=== PATIENT | male | born 1965 | race Caucasian/White ===

== ENCOUNTER 2017-03-13 03:41 | Emergency (ER) | payer SELFPAY ==
[~2017-03-13] VITALS: Ht 175.3 cm; Wt 86.5 kg
[2017-03-13 03:47] VITALS: BP 125/63; PULSE 103; RESP 22; TEMP 101; O2SAT 97
[2017-03-13] MEDS ORDERED: SODIUM CHLOR 0.9% 1000 ML INJ 1,000 ML IV SCH (04:01)
[2017-03-13] MEDS ORDERED: ONDANSETRON HCL 4 MG/2 ML VIAL IVP ONE (04:15)
[2017-03-13] MEDS ORDERED: KETOROLAC TROMETHAMINE 30 MG/ML (IVP) VIAL IVP ONE (04:15)
[2017-03-13] MEDS ORDERED: SODIUM CHLORIDE 0.9% FLUSH 10 ML FLUSH IV FLUSH PRN (04:15)
[2017-03-13 04:37] LABS: HEMATOCRIT 33.8 % (39.0-51.0); HEMOGLOBIN 11.5 GM/DL (13.0-17.0); MEAN CELL VOLUME 100.6 FL (80.0-100.0); MEAN CORPUSCULAR HEMOGLOBIN 34.3 PG (27.0-34.0); MEAN CORPUSCULAR HGB CONC 34.1 % (32.0-36.0); MEAN PLATELET VOLUME 10.4 FL (7.0-11.0); PLATELET COUNT 71 TH/MM3 (150-450); RED BLOOD COUNT 3.36 MIL/MM3 (4.50-5.90); RED CELL DISTRIBUTION WIDTH 19.3 % (11.6-17.2)
[2017-03-13 05:00] LABS: ALKALINE PHOSPHATASE 219 U/L (45-117); TOTAL BILIRUBIN ADULT 3.8 MG/DL (0.2-1.0); TOTAL PROTEIN 7.5 GM/DL (6.4-8.2)
[2017-03-13 05:08] LABS: INTERNATIONAL NORMALIZED RATIO 1.7 RATIO; PROTHROMBIN TIME - PATIENT 19.2 SEC (9.8-11.6)
[2017-03-13 05:18] VITALS: BP 116/62; PULSE 101; RESP 24; O2SAT 96
[2017-03-13 05:21] LABS: ALBUMIN 2.4 GM/DL (3.4-5.0); ALT (GPT) 46 U/L (12-78); AST (GOT) 92 U/L (15-37); BICARBONATE 21.8 MEQ/L (21.0-32.0); BLOOD UREA NITROGEN 10 MG/DL (7-18); CALCIUM 7.7 MG/DL (8.5-10.1); CHLORIDE 100 MEQ/L (98-107); CREATININE 0.63 MG/DL (0.60-1.30); GLOMERULAR FILTRATION RATE 135 ML/MIN (>89); GLUCOSE,RANDOM 87 MG/DL (74-106); SODIUM (NA) 132 MEQ/L (136-145)
[2017-03-13 05:36] LABS: BILIRUBIN, URINE NEG (NEG); BLOOD, URINE SMALL (NEG); GLUCOSE,URINE NEG (NEG); KETONE, URINE TRACE mg/dL (NEG); MUCUS URINE FEW /lpf (OCC); NITRITE,URINE NEG (NEG); URINE COLOR YELLOW (YELLW/STRAW); URINE LEUKOCYTE ESTERASE NEG (NEG)
[2017-03-13] MEDS ORDERED: IOHEXOL 350 MG/ML 10 ML VIAL (for RAD DIAG) IVCONTRAST ONE (05:49)
--- NOTE | 2017-03-13 06:03 | RADRPT ---
EXAM DATE/TIME: 03/13/2017 05:41 [facility] COMPARISON: No previous studies available for comparison. INDICATIONS : Abdominal pain. IV CONTRAST: 50 cc Omnipaque 350 (iohexol) IV ORAL CONTRAST: No oral contrast ingested. RADIATION DOSE: 7.29 CTDIvol (mGy) MEDICAL HISTORY : Ulcers. Gastrointestinal bleed. SURGICAL HISTORY : None. ENCOUNTER: Initial ACUITY: 1 day PAIN SCALE: 7/10 LOCATION: abdomen TECHNIQUE: Volumetric scanning of the abdomen and pelvis was performed. Using automated exposure control and ad justment of the mA and/or kV according to patient size, radiation dose was kept as low as reasonably achievable to obtain optimal diagnostic quality images. DICOM format image data is available electro nically for review and comparison. FINDINGS: LOWER LUNGS: The visualized lower lungs are clear. LIVER: Homogeneous density without lesion. The margins of the liver are mildly lobular and there is mild hep atic steatosis. There is no dilation of the biliary tree. There are multiple small gallstones layerin g dependently in the gallbladder. There is apparent mild gallbladder wall thickening and or perichole cystic fluid. A small amount of ascitic fluid surrounding the liver margin. SPLEEN: There is mild splenomegaly with spleen measuring up to 15.3 x 7.5 cm. PANCREAS: Within normal limits. KIDNEYS: Normal in size and shape. There is no mass, stone or hydronephrosis. ADRENAL GLANDS: Within normal limits. VASCULAR: There is no aortic aneurysm. BOWEL/MESENTERY: No oral or IV contrast was given limiting the sensitivity. There is apparent bowel wall thickening in volving portions of the ascending colon. There is a small amount of ascitic fluid in the pelvis. Ther e is no free air. There are multiple loops of nondilated air-containing small bowel. ABDOMINAL WALL: Within normal limits. RETROPERITONEUM: There is no lymphadenopathy. BLADDER: No wall thickening or mass. REPRODUCTIVE: Within normal limits. INGUINAL: There is no lymphadenopathy or hernia. MUSCULOSKELETAL: Within normal limits for patient age. CONCLUSION: 1. Limited exam performed without intravenous or oral contrast. 2. Mild splenomegaly. 3. Liver is normal in size but demonstrates mild hepatic steatosis with mildly lobular bladder contou r which could indicate cirrhosis. There is a small amount of ascitic fluid in the abdomen and pelvis. 4. Multiple small calcified gallstones layering dependently in the gallbladder with questionable wall thickening versus pericholecystic fluid which may be secondary to the ascites. 5. Apparent bowel wall thickening involving portions of the ascending colon. Mihir Ruth MD on March 13, 2017 at 5:57 Board Certified Radiologist. This report was verified electronically.
[2017-03-13 06:14] LABS: BANDS 16 % (0-6); LYMPHOCYTES 1 % (9-44); METAMYELOCYTES 1 % (0-1); MONOCYTES 6 % (0-8); POLYS (SEG NEUTROPHILS) 76 % (16-70)
[2017-03-13 06:15] LABS: KERATOCYTES OCC (NORMAL); OVALOCYTES 1+ (NORMAL)
--- NOTE | 2017-03-13 07:06 | PD ---
HPI Chief Complaint: Abdominal Pain Time Seen by Provider: 03:55 Travel History International Travel<30 days: No Contact w/Intl Traveler<30days: No Traveled to known affect area: No History of Present Illness HPI Patient is a 51-year-old male who comes in complaining of lower abdominal pain and testicular pain. He says it started yesterday afternoon at noon and the pain got so bad he was unable to walk. He has not taken anything for the pain. He says he does not think his testicles are swollen. He denies any trauma. He denies any difficulty urinating. He denies vomiting and has been moving his bowels normally. He says that he did not know he had a fever. He denies any penile discharge. He says he has never had pain like this before. [facility] Past Medical History Gastrointestinal Disorders: Yes (gi bleed with transfusion) Ulcer: Yes Social History Alcohol Use: No Tobacco Use: No Substance Use: No Allergies-Medications (Allergen,Severity, Reaction): Coded Allergies: No Known Allergies (Verified , 03/13/17) Reported Meds & Prescriptions Reported Meds & Active Scripts Active No Active Prescriptions or Reported Medications Review of Systems Except as stated in HPI: all other systems reviewed are Neg General / Constitutional: No: Chills HENT: No: Headaches, Lightheadedness Cardiovascular: No: Chest Pain or Discomfort Respiratory: No: Shortness of Breath Gastrointestinal: Positive: Abdominal Pain Genitourinary: No: Dysuria, Discharge Musculoskeletal: No: Edema, Pain Skin: No Rash, No Change in Pigmentation Neurologic: No: Weakness, Dizziness Physical Exam Narrative GENERAL: Awake and alert, in mild distress due to pain. SKIN: Focused skin assessment warm/dry. No signs of infection. HEAD: Atraumatic. Normocephalic. EYES: Pupils equal and round. No scleral icterus. ENT: No nasal bleeding or discharge. Mucous membranes pink and moist. NECK: Trachea midline. No JVD. CARDIOVASCULAR: Regular rate and rhythm. No murmur appreciated. RESPIRATORY: No accessory muscle use. Clear to auscultation. Breath sounds equal bilaterally. GASTROINTESTINAL: Abdomen is mildly distended and hard to the touch.. Tender to palpation across the lower abdomen. No rebound or guarding. : Exam performed in the presence of the nurse. There is no testicular swelling or masses. No tenderness to palpation of the testicles. No penile lesions. No crepitus. MUSCULOSKELETAL: No obvious deformities. No clubbing. No cyanosis. No edema. NEUROLOGICAL: Awake and alert. No obvious cranial nerve deficits. Motor grossly within normal limits. Normal speech. PSYCHIATRIC: Appropriate mood and affect; insight and judgment normal. Data Data Last Documented VS Vital Signs Date Time Temp Pulse Resp B/P (MAP) Pulse Ox O2 Delivery O2 Flow Rate FiO2 03/13/17 05:18 101 24 116/62 (80) 96 Nasal Cannula 2.00 03/13/17 03:47 101.0 Orders Orders Complete Blood Count With Diff (03/13/17 04:01) Comprehensive Metabolic Panel (03/13/17 04:01) Lactic Acid (03/13/17 04:01) Prothrombin Time / Inr (Pt) (03/13/17 04:01) Act Partial Throm Time (Ptt) (03/13/17 04:01) Urinalysis - C+S If Indicated (03/13/17 04:01) Ct Abd/Pel W Iv Contrast(Rout) (03/13/17 04:01) Iv Access Insert/Monitor (03/13/17 04:01) Ecg Monitoring (03/13/17 04:01) Oximetry (03/13/17 04:01) Ondansetron Inj (Zofran Inj) (03/13/17 04:15) Sodium Chlor 0.9% 1000 Ml Inj (Ns 1000 M (03/13/17 04:01) Sodium Chloride 0.9% Flush (Ns Flush) (03/13/17 04:15) Ketorolac Inj (Toradol Inj) (03/13/17 04:15) Iohexol 350 Inj (Omnipaque 350 Inj) (03/13/17 05:49) Us Testicles W Doppler (03/13/17 ) Us Abdomen Gallbladder (03/13/17 ) Labs Laboratory Tests Test 03/13/17 04:15 03/13/17 05:15 White Blood Count 15.0 TH/MM3 Red Blood Count 3.36 MIL/MM3 Hemoglobin 11.5 GM/DL Hematocrit 33.8 % Mean Corpuscular Volume 100.6 FL Mean Corpuscular Hemoglobin 34.3 PG Mean Corpuscular Hemoglobin Concent 34.1 % Red Cell Distribution Width 19.3 % Platelet Count 71 TH/MM3 Mean Platelet Volume 10.4 FL CBC Comment AUTO DIFF Differential Total Cells Counted 100 Neutrophils % (Manual) 76 % Band Neutrophils % 16 % Lymphocytes % 1 % Monocytes % 6 % Neutrophils # (Manual) 14.0 TH/MM3 Metamyelocytes 1 % Differential Comment FINAL DIFF MANUAL Platelet Estimate LOW Platelet Morphology Comment NORMAL Ovalocytes 1+ Keratocytes OCC Prothrombin Time 19.2 SEC Prothromb Time International Ratio 1.7 RATIO Activated Partial Thromboplast Time 33.5 SEC Blood Urea Nitrogen 10 MG/DL Creatinine 0.63 MG/DL Random Glucose 87 MG/DL Total Protein 7.5 GM/DL Albumin 2.4 GM/DL Calcium Level 7.7 MG/DL Alkaline Phosphatase 219 U/L Aspartate Amino Transf (AST/SGOT) 92 U/L Alanine Aminotransferase (ALT/SGPT) 46 U/L Total Bilirubin 3.8 MG/DL Sodium Level 132 MEQ/L Potassium Level 4.2 MEQ/L Chloride Level 100 MEQ/L Carbon Dioxide Level 21.8 MEQ/L Anion Gap 10 MEQ/L Estimat Glomerular Filtration Rate 135 ML/MIN Urine Color YELLOW Urine Turbidity CLEAR Urine pH 6.0 Urine Specific [place] 1.010 Urine Protein NEG mg/dL Urine Glucose (UA) NEG mg/dL Urine Ketones TRACE mg/dL Urine Occult Blood SMALL Urine Nitrite NEG Urine Bilirubin NEG Urine Urobilinogen 2.0 MG/DL Urine Leukocyte Esterase NEG Urine RBC 1 /hpf Urine WBC 1 /hpf Urine Mucus FEW /lpf Microscopic Urinalysis Comment CULT NOT INDICATED Lactic Acid Level 3.1 mmol/L MDM Medical Decision Making Medical Screen Exam Complete: Yes Emergency Medical Condition: Yes Differential Diagnosis UTI versus appendicitis versus colitis versus epididymitis versus orchitis Narrative Course Patient is a 51-year-old male comes in complaining of lower abdominal pain and testicular pain. Exam shows tenderness across lower abdomen. IV established, labs sent. Labs show a white blood cell count of 15 and a lactic acid of 3.1. Total bilirubin is elevated, but it is similar to previous labs. Platelet count is 71, which is also similar to his previous labs. CT abdomen and pelvis shows gallstones with possible gallbladder wall thickening versus pericholecystic fluid. Patient given IV fluids, Toradol. Ultrasound of the gallbladder and testicles ordered. Patient signed out to Dr. Morley to follow up ultrasounds and disposition the patient. Scripts No Active Prescriptions or Reported Meds Yanelis Maxwell MD Mar 13, 2017 07:06
[2017-03-13 07:11] VITALS: BP 114/67; PULSE 89; RESP 18; TEMP 97.9; TEMP 98.6; O2SAT 98
[2017-03-13] MEDS ORDERED: SODIUM CHLOR 0.9% 1000 ML INJ 1,000 ML IV ONE ×2 (07:15→08:00)
[2017-03-13] MEDS ORDERED: ACETAMINOPHEN 1000 MG/100 ML 100 ML IV ONE (07:45)
--- NOTE | 2017-03-13 07:53 | PD ---
Physical Exam Date Seen by Provider: Mar 13, 2017 Narrative Care was assumed from Dr. Maxwell at 7 AM pending ultrasound of the gallbladder and the testicles. The patient reports the onset of lower abdominal and testicular pain about noon time yesterday. He states that the pain is so severe that he cannot walk or flex his hips. He states that he has vomited a couple of times secondary to the pain. Otherwise, he has had no associated symptoms. GENERAL: Awake and alert. SKIN: Warm and dry. Good color. HEAD: Normocephalic/atraumatic. EYES: Pupils are equal. Extraocular movements are intact. NECK: Neck is supple with full range of motion. CARDIOVASCULAR: Regular rate and rhythm. RESPIRATORY: Nonlabored respirations. ABDOMEN: Soft with diffuse lower abdominal tenderness. No guarding or rebound. I was unable to elicit any right upper quadrant tenderness. MUSCULOSKELETAL: Atraumatic. NEUROLOGICAL: A and O 3. Nonfocal. PSYCHIATRIC: Appropriate mood and affect. Data Data Last Documented VS Vital Signs Date Time Temp Pulse Resp B/P (MAP) Pulse Ox O2 Delivery O2 Flow Rate FiO2 03/13/17 09:46 99.1 80 18 102/67 (79) 97 Room Air 03/13/17 05:18 2.00 Orders Orders Complete Blood Count With Diff (03/13/17 04:01) Comprehensive Metabolic Panel (03/13/17 04:01) Lactic Acid (03/13/17 04:01) Prothrombin Time / Inr (Pt) (03/13/17 04:01) Act Partial Throm Time (Ptt) (03/13/17 04:01) Urinalysis - C+S If Indicated (03/13/17 04:01) Ct Abd/Pel W Iv Contrast(Rout) (03/13/17 04:01) Iv Access Insert/Monitor (03/13/17 04:01) Ecg Monitoring (03/13/17 04:01) Oximetry (03/13/17 04:01) Ondansetron Inj (Zofran Inj) (03/13/17 04:15) Sodium Chlor 0.9% 1000 Ml Inj (Ns 1000 M (03/13/17 04:01) Sodium Chloride 0.9% Flush (Ns Flush) (03/13/17 04:15) Ketorolac Inj (Toradol Inj) (03/13/17 04:15) Iohexol 350 Inj (Omnipaque 350 Inj) (03/13/17 05:49) Us Testicles W Doppler (03/13/17 ) Us Abdomen Gallbladder (03/13/17 ) Sodium Chlor 0.9% 1000 Ml Inj (Ns 1000 M (03/13/17 07:15) Acetaminophen 1000 Mg/100 Ml (Ofirmev 10 (03/13/17 07:45) Sodium Chlor 0.9% 1000 Ml Inj (Ns 1000 M (03/13/17 08:00) Lactic Acid (03/13/17 07:55) Ceftriaxone Inj (Rocephin Inj) (03/13/17 08:00) Blood Culture (03/13/17 08:07) Labs Laboratory Tests Test 03/13/17 04:15 03/13/17 05:15 03/13/17 08:20 White Blood Count 15.0 TH/MM3 Red Blood Count 3.36 MIL/MM3 Hemoglobin 11.5 GM/DL Hematocrit 33.8 % Mean Corpuscular Volume 100.6 FL Mean Corpuscular Hemoglobin 34.3 PG Mean Corpuscular Hemoglobin Concent 34.1 % Red Cell Distribution Width 19.3 % Platelet Count 71 TH/MM3 Mean Platelet Volume 10.4 FL CBC Comment AUTO DIFF Differential Total Cells Counted 100 Neutrophils % (Manual) 76 % Band Neutrophils % 16 % Lymphocytes % 1 % Monocytes % 6 % Neutrophils # (Manual) 14.0 TH/MM3 Metamyelocytes 1 % Differential Comment FINAL DIFF MANUAL Platelet Estimate LOW Platelet Morphology Comment NORMAL Ovalocytes 1+ Keratocytes OCC Prothrombin Time 19.2 SEC Prothromb Time International Ratio 1.7 RATIO Activated Partial Thromboplast Time 33.5 SEC Blood Urea Nitrogen 10 MG/DL Creatinine 0.63 MG/DL Random Glucose 87 MG/DL Total Protein 7.5 GM/DL Albumin 2.4 GM/DL Calcium Level 7.7 MG/DL Alkaline Phosphatase 219 U/L Aspartate Amino Transf (AST/SGOT) 92 U/L Alanine Aminotransferase (ALT/SGPT) 46 U/L Total Bilirubin 3.8 MG/DL Sodium Level 132 MEQ/L Potassium Level 4.2 MEQ/L Chloride Level 100 MEQ/L Carbon Dioxide Level 21.8 MEQ/L Anion Gap 10 MEQ/L Estimat Glomerular Filtration Rate 135 ML/MIN Urine Color YELLOW Urine Turbidity CLEAR Urine pH 6.0 Urine Specific [place] 1.010 Urine Protein NEG mg/dL Urine Glucose (UA) NEG mg/dL Urine Ketones TRACE mg/dL Urine Occult Blood SMALL Urine Nitrite NEG Urine Bilirubin NEG Urine Urobilinogen 2.0 MG/DL Urine Leukocyte Esterase NEG Urine RBC 1 /hpf Urine WBC 1 /hpf Urine Mucus FEW /lpf Microscopic Urinalysis Comment CULT NOT INDICATED Lactic Acid Level 3.1 mmol/L 2.5 mmol/L [facility] Medical Record Reviewed: Yes Supervised Visit with GALILEA: No Narrative Course CBC & BMP Diagram 03/13/17 04:15 Total Protein 7.5, Albumin 2.4 L, Calcium Level 7.7 L, Alkaline Phosphatase 219 H, Aspartate Amino Transf (AST/SGOT) 92 H, Alanine Aminotransferase (ALT/SGPT) 46, Total Bilirubin 3.8 H LA 3.1 UA negative for infection. The patient has been treated with IV fluids. He has not yet received any antibiotics as the etiology of his leukocytosis and lactic acidosis is currently unknown. I have ordered a third liter of IV fluids with a repeat lactic acid level. I have also ordered Rocephin, 2 g IV for treatment of possible epididymitis. Last Impressions Abdomen/Pelvis CT 03/13/17 0401 Signed Impressions: Service Date/Time: Monday, March 13, 2017 05:41 - CONCLUSION: 1. Limited exam performed without intravenous or oral contrast. 2. Mild splenomegaly. 3. Liver is normal in size but demonstrates mild hepatic steatosis with mildly lobular bladder contour which could indicate cirrhosis. There is a small amount of ascitic fluid in the abdomen and pelvis. 4. Multiple small calcified gallstones layering dependently in the gallbladder with questionable wall thickening versus pericholecystic fluid which may be secondary to the ascites. 5. Apparent bowel wall thickening involving portions of the ascending colon. Mihir Ruth MD Scrotum Ultrasound 03/13/17 0000 Signed Impressions: Service Date/Time: Monday, March 13, 2017 09:31 - CONCLUSION: The testicles appear normal. There is thickening of the left epididymis without increased flow. Errol Reddy MD Gall Bladder Ultrasound 03/13/17 0000 Signed Impressions: Service Date/Time: Monday, March 13, 2017 09:21 - CONCLUSION: 1. Heterogeneous liver likely from cirrhosis. There is mild sclerosis in the right upper abdomen. 2. Gallstones, gallbladder distention, and gallbladder wall thickening. This can be correlated with signs of cholecystitis. 3. Mildly distended common bile duct. Errol Reddy MD I am unable to elicit any right upper quadrant tenderness. I believe that his gallstones can be addressed as an outpatient. Lactic acid level has improved with fluids. I will presume that his source faction is genitourinary and treat him with doxycycline. He was treated in the emergency department with Rocephin. Vital Signs Date Time Temp Pulse Resp B/P (MAP) Pulse Ox O2 Delivery O2 Flow Rate FiO2 03/13/17 09:46 99.1 80 18 102/67 (79) 97 Room Air 03/13/17 07:11 18 03/13/17 07:11 98.6 89 18 114/67 (83) 98 Room Air 03/13/17 07:00 17 03/13/17 05:18 101 24 116/62 (80) 96 Nasal Cannula 2.00 03/13/17 03:47 101.0 103 22 125/63 (83) 97 Sepsis Criteria SIRS Criteria (2 or more): Temp > 100.9 or < 96.8, Heart rate over 90, RR > 20 or PaCO2 < 32, WBC > 96702, < 4000 or > 10% bands Sepsis Criteria (SIRS+source): Infect source susp/known Severe Sepsis (+one): Lactate >2 Criteria Outcome: Meets SIRS criteria, Meets sepsis criteria, Meets severe sepsis criteria Diagnosis Primary Impression: SIRS (systemic inflammatory response syndrome) Additional Impressions: Lactic acidosis Epididymitis Patient Instructions: Epididymitis (DC), General Instructions Med/Other Pt SpecificInfo: Prescription(s) given Scripts Nabumetone (Nabumetone) 750 Mg Tab 750 MG PO BID for Pain-Inflammation, #60 TAB 0 Refills Prov: Anya Morley MD 03/13/17 Doxycycline Hyclate (Doxycycline Hyclate) 100 Mg Cap 100 MG PO BID for Infection, #20 CAP 0 Refills Prov: Anya Morley MD 03/13/17 Disposition: 01 DISCHARGE HOME Condition: Stable Anya Morley MD Mar 13, 2017 07:53
[2017-03-13] MEDS ORDERED: cefTRIAXone INJ 2,000 MG in SODIUM CHLORIDE 0.9% INJ 100 ML IV ONE (08:00)
[2017-03-13 09:46] VITALS: BP 102/67; PULSE 80; RESP 18; TEMP 99.1; O2SAT 97
--- NOTE | 2017-03-13 10:01 | RADRPT ---
EXAM DATE/TIME: 03/13/2017 09:21 [facility] COMPARISON: CT ABDOMEN & PELVIS W CONTRAST, March 13, 2017, 5:41. INDICATIONS : Right upper quadrant pain. MEDICAL HISTORY : GI bleed with transfusion. Ulcer. Right upper quadrant pain. SURGICAL HISTORY : Left leg/ankle surgery. ENCOUNTER: Initial ACUITY: 1 day PAIN SCORE: 8/10 LOCATION: Right upper quadrant MEASUREMENTS: LIVER: 17.7 cm length COMMON DUCT: 7 mm RIGHT KIDNEY: 11.3 x 6.1 x 7.1 cm FINDINGS: LIVER: The liver echotexture is coarsened diffusely without focal lesion or ductal dilatation. The liver chad face is minimally nodular. There is mild ascites seen at the periphery of the liver. COMMON DUCT: Common bile duct is mildly dilated at 7 mm. GALLBLADDER: The gallbladder is distended with gallstones. The gallbladder wall is thickened at 9 mm. There does a ppear to be pericholecystic fluid. PANCREAS: The visualized portions are within normal limits. RIGHT KIDNEY: No evidence of hydronephrosis, stone, or mass. CONCLUSION: 1. Heterogeneous liver likely from cirrhosis. There is mild sclerosis in the right upper abdomen. 2. Gallstones, gallbladder distention, and gallbladder wall thickening. This can be correlated with s igns of cholecystitis. 3. Mildly distended common bile duct. Errol Reddy MD on March 13, 2017 at 9:54 Board Certified Radiologist. This report was verified electronically.
--- NOTE | 2017-03-13 10:19 | RADRPT ---
EXAM DATE/TIME: 03/13/2017 09:31 [facility] COMPARISON: No previous studies available for comparison. INDICATIONS : Testicular pain. MEDICAL HISTORY : GI bleed with transfusion. Ulcer. Testicular pain. SURGICAL HISTORY : Left leg/ankle surgery. ENCOUNTER: Initial ACUITY: 1 day PAIN SCORE: 9/10 LOCATION: Bilateral testicles. MEASUREMENTS: RIGHT TESTICLE: 4.2 x 2.9 x 2.2cm LEFT TESTICLE: 4.7 x 3.2 x 2.0cm FINDINGS: RIGHT TESTICLE: Homogeneous echotexture without intra or extratesticular mass. Blood flow is symmetric and within no rmal limits. There is a minimal hydrocele. No varicocele is seen. Epididymis is within normal limit s. LEFT TESTICLE: Homogeneous echotexture without intra or extratesticular mass. Blood flow is symmetric and within no rmal limits. No hydrocele or varicocele. There is heterogeneity seen adjacent to the left testicle likely related to an enlarged epididymis. Increased flow is not seen. SCROTUM: Within normal limits. CONCLUSION: The testicles appear normal. There is thickening of the left epididymis without increased flow. Errol Reddy MD on March 13, 2017 at 10:12 Board Certified Radiologist. This report was verified electronically.
[2017-03-13] MEDS ORDERED: DOXY100C PO (10:35)
[2017-03-13] MEDS ORDERED: NABU1TAB33 PO (10:35)
[2017-03-13 10:50] VITALS: BP 120/81; TEMP 98.4
== END 2017-03-13 10:52 | disposition home or self-care (01) ==
LOC: NEPE 03:41
DX: R65.10 Systemic inflammatory response syndrome (SIRS) of non-infectious origin without acute organ dysfunction (principal); E87.2 Acidosis; N45.1 Epididymitis; K80.80 Other cholelithiasis without obstruction; B95.62 Methicillin resistant Staphylococcus aureus infection as the cause of diseases classified elsewhere; Z87.19 Personal history of other diseases of the digestive system
CPT/HCPCS: 74177; 76705; 76870; 80053; 81001; 83605; 85007; 85027; 85610; 85730; 86403; 87040; 87186; 87205; 93975; 96361; 96365; 96368; 96375; 99285; J0131; J0696; J1885; J2405; J7030; Q9967

== ENCOUNTER 2017-03-16 20:49 | Inpatient (IN) | payer SELFPAY ==
[~2017-03-16] VITALS: Ht 175.3 cm; Wt 115.9 kg
[~2017-03-16 20:49] MED LIST: DOXY100C PO; NABU1TAB33 PO
[2017-03-16 20:52] VITALS: BP 128/60; PULSE 106; RESP 16; O2SAT 95
[2017-03-16] MEDS ORDERED: SODIUM CHLOR 0.9% 1000 ML INJ 1,000 ML IV ONE ×5 (21:45→23:30)
[2017-03-16] MEDS ORDERED: PIPERACIL-TAZO 4.5 GM PREMIX 100 ML IV ONE (22:15)
[2017-03-16] MEDS ORDERED: VANCOMYCIN INJ 1,000 MG in SODIUM CHLOR 0.9% 250 ML INJ 250 ML IV ONE (22:15)
[2017-03-16] MEDS ORDERED: ONDANSETRON HCL 4 MG/2 ML VIAL IV PUSH ONE (22:15)
[2017-03-16] MEDS ORDERED: MORPHINE SULFATE 4 MG/ML INJ IV PUSH ONE (22:15)
[2017-03-16 22:26] VITALS: RESP 20; O2SAT 99
[2017-03-16 22:28] VITALS: BP 127/60; PULSE 102; RESP 24; TEMP 97.4; O2SAT 98
[2017-03-16 22:29] LABS: HEMATOCRIT 31.7 % (39.0-51.0); MEAN CELL VOLUME 101.1 FL (80.0-100.0); MEAN CORPUSCULAR HGB CONC 33.6 % (32.0-36.0); PLATELET COUNT 27 TH/MM3 (150-450); RED BLOOD COUNT 3.13 MIL/MM3 (4.50-5.90); RED CELL DISTRIBUTION WIDTH 20.1 % (11.6-17.2); WHITE BLOOD COUNT 14.9 TH/MM3 (4.0-11.0)
--- NOTE | 2017-03-16 22:33 | RADRPT ---
EXAM DATE/TIME: 03/16/2017 22:12 [facility] COMPARISON: No previous studies available for comparison. INDICATIONS : Fever, shortness of breath, syncope. MEDICAL HISTORY : None. SURGICAL HISTORY : None. ENCOUNTER: Initial ACUITY: 1 day PAIN SCORE: 0/10 LOCATION: Bilateral chest FINDINGS: The lungs are clear without infiltrate, nodule, or mass. There is no appreciable pleural effusion fo r technique. Heart and mediastinum are unremarkable. CONCLUSION: No acute cardiopulmonary disease. Daysi Elkins MD on March 16, 2017 at 22:31 Board Certified Radiologist. This report was verified electronically.
[2017-03-16 22:38] LABS: HEMO FLAGS AUTO DIFF
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
[2017-03-16 22:42] LABS: APTT (PATIENT) 43.5 SEC (24.3-30.1); INTERNATIONAL NORMALIZED RATIO 2.4 RATIO; PROTHROMBIN TIME - PATIENT 27.8 SEC (9.8-11.6)
[2017-03-16 23:02] LABS: ALKALINE PHOSPHATASE 220 U/L (45-117); ALT (GPT) 45 U/L (12-78); ANION GAP 18 MEQ/L (5-15); AST (GOT) 184 U/L (15-37); BICARBONATE 16.1 MEQ/L (21.0-32.0); BLOOD UREA NITROGEN 64 MG/DL (7-18); CHLORIDE 94 MEQ/L (98-107); CREATINE KINASE 437 U/L (39-308); GLOMERULAR FILTRATION RATE 17 ML/MIN (>89); SODIUM (NA) 128 MEQ/L (136-145); TOTAL BILIRUBIN ADULT 9.4 MG/DL (0.2-1.0)
[2017-03-16 23:03] LABS: POTASSIUM 4.5 MEQ/L (3.5-5.1)
--- NOTE | 2017-03-16 23:14 | RADRPT ---
EXAM DATE/TIME: 03/16/2017 22:50 [facility] COMPARISON: No previous studies available for comparison. INDICATIONS : Syncope. RADIATION DOSE: 56.35 CTDIvol (mGy) MEDICAL HISTORY : Ulcers. Gastrointestinal bleed. SURGICAL HISTORY : None. ENCOUNTER: Initial ACUITY: 1 day PAIN SCALE: 0/10 LOCATION: cranial TECHNIQUE: Multiple contiguous axial images were obtained of the head. Using automated exposure control and adj ustment of the mA and/or kV according to patient size, radiation dose was kept as low as reasonably a chievable to obtain optimal diagnostic quality images. DICOM format image data is available electro nically for review and comparison. FINDINGS: CEREBRUM: Minimal high density in the right parietal convexity. There also appears to be some minimal subarachn oid hemorrhage posteriorly. The ventricles are normal for age. No evidence of midline shift, mass le lary or acute infarction. No extra-axial fluid collections are seen. POSTERIOR FOSSA: The cerebellum and brainstem are intact. The 4th ventricle is midline. The cerebellopontine angle i s unremarkable. EXTRACRANIAL: The visualized portion of the orbits is intact. SKULL: The calvaria is intact. No evidence of skull fracture. CONCLUSION: 1. Minimal contusion high right parietal convexity. 2. Minimal subarachnoid hemorrhage. Eran Agustin MD on March 16, 2017 at 23:11 Board Certified Radiologist. This report was verified electronically.
[2017-03-16 23:17] LABS: BANDS 34 % (0-6); METAMYELOCYTES 6 % (0-1); MYELOCYTES 3 % (0-0); NEUTROPHIL # MANUAL DIFF 14.3 TH/MM3 (1.8-7.7); POLYS (SEG NEUTROPHILS) 52 % (16-70); PROMYELOCYTES 1 % (0-0); SCAN/DIFF FINAL DIFF MANUAL; WBC DIFF SAMPLE 100
--- NOTE | 2017-03-16 23:17 | RADRPT ---
EXAM DATE/TIME: 03/16/2017 22:54 [facility] COMPARISON: No previous studies available for comparison. INDICATIONS : Chest pain. Evaluate for pneumonia. RADIATION DOSE: 6.39 CTDIvol (mGy) ; Combined studies - Thorax/Abdomen/Pelvis MEDICAL HISTORY : Ulcers. Gastrointestinal bleed. SURGICAL HISTORY : None. ENCOUNTER: Initial ACUITY: 1 day PAIN SCALE: 6/10 LOCATION: Bilateral chest TECHNIQUE: Volumetric scanning of the chest was performed. Using automated exposure control and adjustment of t he mA and/or kV according to patient size, radiation dose was kept as low as reasonably achievable to obtain optimal diagnostic quality images. DICOM format image data is available electronically for r eview and comparison. Follow-up recommendations for detected pulmonary nodules are based at a minimum on nodule size and pa tient risk factors according to Fleischner Society Guidelines. FINDINGS: LUNGS: There is no consolidation or pneumothorax. No concerning pulmonary nodule is visualized. Minimal sca rring in the lower lobes. PLEURAE: There is no pleural thickening or pleural effusion. MEDIASTINUM: The heart and great vessels demonstrate no acute abnormality. There is no mediastinal or hilar lymph adenopathy. Coronary artery calcifications. AXILLAE: Within normal limits. No lymphadenopathy. MUSCULOSKELETAL: Within normal limits for patient age. MISCELLANEOUS: The visualized upper abdominal organs demonstrate cholelithiasis and minimal ascites. CONCLUSION: 1. Minimal scarring in the lower lobes. 2. No consolidation or mass. Eran Agustin MD on March 16, 2017 at 23:13 Board Certified Radiologist. This report was verified electronically.
[2017-03-16 23:19] LABS: PLATELET ESTIMATE SMEAR LOW (NORMAL); PLATELET MORPHOLOGY NORMAL (NORMAL); TOXIC GRANULATION 2+ (NORMAL); TOXIC VACUOLATION PRESENT (NONE SEEN)
[2017-03-16 23:20] LABS: ACANTHOCYTES OCC (NORMAL); OVALOCYTES 1+ (NORMAL)
--- NOTE | 2017-03-16 23:21 | RADRPT ---
EXAM DATE/TIME: 03/16/2017 22:54 [facility] COMPARISON: CT ABDOMEN & PELVIS W CONTRAST, March 13, 2017, 5:41. INDICATIONS : Abdomen pain. ORAL CONTRAST: No oral contrast ingested. RADIATION DOSE: 6.39 CTDIvol (mGy) ; Combined studies - Thorax/Abdomen/Pelvis MEDICAL HISTORY : Ulcers. Gastrointestinal bleed. SURGICAL HISTORY : None. ENCOUNTER: Initial ACUITY: 1 day PAIN SCALE: 6/10 LOCATION: abdomen TECHNIQUE: Volumetric scanning of the abdomen and pelvis was performed. Using automated exposure control and ad justment of the mA and/or kV according to patient size, radiation dose was kept as low as reasonably achievable to obtain optimal diagnostic quality images. DICOM format image data is available electro nically for review and comparison. FINDINGS: LOWER LUNGS: The visualized lower lungs are clear. LIVER: Slightly nodular without lesion. There is no dilation of the biliary tree. There are calcified galls tones. Minimal ascites. SPLEEN: Enlarged without lesion. PANCREAS: Within normal limits. KIDNEYS: Normal in size and shape. There is no mass, stone, or hydronephrosis. ADRENAL GLANDS: Within normal limits. VASCULAR: There is no aortic aneurysm. BOWEL/MESENTERY: The stomach, small bowel, and colon demonstrate no acute abnormality. There is no free intraperitone al air or fluid. ABDOMINAL WALL: Within normal limits. RETROPERITONEUM: There is no lymphadenopathy. BLADDER: No wall thickening or mass. REPRODUCTIVE: Within normal limits. INGUINAL: There is no lymphadenopathy or hernia on the left. Small right fat containing hernia. MUSCULOSKELETAL: Within normal limits for patient age. CONCLUSION: 1. Cholelithiasis. 2. Liver is slightly nodular but could be early morphologic changes of cirrhosis. Minimal ascites. 3. Small fat-containing right inguinal hernia. 4. Splenomegaly. Eran Agustin MD on March 16, 2017 at 23:16 Board Certified Radiologist. This report was verified electronically.
[2017-03-16 23:26] VITALS: BP 108/56; PULSE 108; RESP 24; O2SAT 97
[2017-03-16 23:29] LABS: BLOOD GAS BASE EXCESS -8.6 mmol/L (-2-2); BLOOD GAS CARBOXYHEMOGLOBIN 1.4 % (0-4); BLOOD GAS HCO3 17 mmol/L (22-26); BLOOD GAS METHEMOGLOBIN 0.3 % (0-2); BLOOD GAS O2 HGB SATURATION 87 % (90-100); BLOOD GAS OXYGEN CONTENT 12.3 Vol % (12.0-20.0); BLOOD GAS PCO2 36 mmHg (38-42); BLOOD GAS PO2 62 mmHG (61-120); CRITICAL VALUE YES; FIO2 21 %; OXYGEN DEVICE ROOM AIR; TEMP CORR TO 98.6
[2017-03-16] MEDS ORDERED: SODIUM CHLOR 0.9% 1000 ML INJ 1,000 ML IV SCH (23:30)
[2017-03-16] MEDS ORDERED: SODIUM CHLOR 0.9% 1000 ML INJ 100 ML IV ONE (23:30)
[2017-03-16] MEDS ORDERED: SODIUM CHLORIDE 0.9% FLUSH 10 ML FLUSH IV FLUSH PRN (23:30)
[2017-03-16] MEDS ORDERED: CHLORHEXIDINE GLUCONATE 2 % 1 PACK (2 CLOTHS) TOP PRN (23:30)
[2017-03-16] MEDS ORDERED: MISCELLANEOUS NURSING INFORMATION XX SCH (23:30)
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
[2017-03-16 23:31] LABS: DRAW SITE RT PEDAL; NUMBER OF ARTERIAL PUNCTURES 1; STAT YES
[2017-03-16 23:38] LABS: CKMB 18.6 NG/ML (0.5-3.6)
[2017-03-16 23:41] LABS: FIBRINOGEN 213 mg/dL (227-377)
--- NOTE | 2017-03-16 23:54 | PD ---
Physical Exam Date Seen by Provider: Mar 16, 2017 Time Seen by Provider: 23:43 Narrative 51-year-old male came to the emergency room for not feeling well. He was seen initially by the PA and I'm supervising him. Patient had a syncopal episode today and was passed out for almost an hour as per him. Patient is a chronic alcoholic. He was seen in the emergency department on 03/13/2017. At that time he was seen for abdominal pain. CT scan and blood test results were abnormal including elevated lactic acid. However was discharged home on doxycycline. Patient never filled the prescription for doxycycline. He was tachycardic when he arrived in 120s. He seemed to be in significant distress. His abdomen was distended. Blood test results came back and shows severe sepsis with DIC picture. CT scan of the abdomen shows cirrhosis with mild ascites and cholecystitis. Patient was given IV fluid and antibiotic as per sepsis protocol. CT scan of the head was reported as small subarachnoid hemorrhage. I am really concerned given the coagulopathy that the intracranial bleed will worsen. I contacted Dr. Chadwick from ICU who came down to see the patient. Patient was GCS of 14. He did not want patient to be intubated. I discussed the case with Dr. Quinteros who is on-call for general surgery and he has been asked to consult for the acute cholecystitis. I just spoke with Dr. Kelly as well who wants the patient to be started on FFP and platelets as soon as possible as well. PCC is not an option with possible DIC at this point. Patient will be going to the unit soon. I had put a central line due to poor peripheral venous access. Please refer to my procedure note. Patient tolerated the procedure well. A chest x-ray is getting done at this point for the line placement. Data Data Last Documented VS Vital Signs Date Time Temp Pulse Resp B/P (MAP) Pulse Ox O2 Delivery O2 Flow Rate FiO2 03/16/17 23:35 100 Nasal Cannula 10.00 03/16/17 23:26 108 24 108/56 (73) 03/16/17 22:28 97.4 Orders Orders Electrocardiogram (03/16/17 21:45) Complete Blood Count With Diff (03/16/17 21:45) Comprehensive Metabolic Panel (03/16/17 21:45) Prothrombin Time / Inr (Pt) (03/16/17 21:45) Act Partial Throm Time (Ptt) (03/16/17 21:45) Lactic Acid Sepsis Protocol (03/16/17 21:45) Magnesium (Mg) (03/16/17 21:45) Lipase (03/16/17 21:45) Ckmb (Isoenzyme) Profile (03/16/17 21:45) Troponin I (03/16/17 21:45) Urinalysis - C+S If Indicated (03/16/17 21:45) Influenzae A/B Antigen (03/16/17 21:45) Blood Culture (03/16/17 21:45) Chest, Single Ap (03/16/17 21:45) Blood Glucose (03/16/17 21:45) Ecg Monitoring (03/16/17 21:45) Iv Access Insert/Monitor (03/16/17 21:45) Oximetry (03/16/17 21:45) Oxygen Administration (03/16/17 21:45) Sodium Chlor 0.9% 1000 Ml Inj (Ns 1000 M (03/16/17 21:45) Alcohol (Ethanol) (03/16/17 22:02) Ct Brain W/O Iv Contrast(Rout) (03/16/17 ) Piperacil-Tazo 4.5 Gm Premix (Zosyn 4.5 (03/16/17 22:15) Vancomycin Inj (Vancomycin Inj) (03/16/17 22:15) Morphine Inj (Morphine Inj) (03/16/17 22:15) Ondansetron Inj (Zofran Inj) (03/16/17 22:15) Sodium Chlor 0.9% 1000 Ml Inj (Ns 1000 M (03/16/17 22:15) Sodium Chlor 0.9% 1000 Ml Inj (Ns 1000 M (03/16/17 22:15) Ct Abd/Pel W/O Iv Contrast (03/16/17 ) Ct Thorax/ Chest Wo Iv Contras (03/16/17 ) CKMB (03/16/17 22:10) CKMB% (03/16/17 22:10) Fibrinogen (03/16/17 23:07) D-Dimer (03/16/17 23:07) Type And Screen (03/16/17 23:24) Arterial Blood Gas (Abg) (03/16/17 23:10) Ammonia (03/16/17 23:37) Chest, Single Ap (03/16/17 ) Admit Order (Ed Use Only) (03/16/17 23:40) Labs Laboratory Tests Test 03/16/17 22:10 03/16/17 23:10 03/16/17 23:39 White Blood Count 14.9 TH/MM3 Red Blood Count 3.13 MIL/MM3 Hemoglobin 10.6 GM/DL Hematocrit 31.7 % Mean Corpuscular Volume 101.1 FL Mean Corpuscular Hemoglobin 34.0 PG Mean Corpuscular Hemoglobin Concent 33.6 % Red Cell Distribution Width 20.1 % Platelet Count 27 TH/MM3 Mean Platelet Volume 10.6 FL CBC Comment AUTO DIFF Differential Total Cells Counted 100 Neutrophils % (Manual) 52 % Band Neutrophils % 34 % Monocytes % 4 % Neutrophils # (Manual) 14.3 TH/MM3 Metamyelocytes 6 % Myelocytes 3 % Promyelocytes 1 % Differential Comment FINAL DIFF MANUAL Toxic Granulation 2+ Toxic Vacuolation PRESENT Platelet Estimate LOW Platelet Morphology Comment NORMAL Ovalocytes 1+ Acanthocytes OCC Prothrombin Time 27.8 SEC Prothromb Time International Ratio 2.4 RATIO Activated Partial Thromboplast Time 43.5 SEC Fibrinogen 213 mg/dL D-Dimer Quantitative (PE/DVT) GREATER THAN 35.20 MG/L FEU Blood Urea Nitrogen 64 MG/DL Creatinine 3.84 MG/DL Random Glucose 63 MG/DL Total Protein 5.7 GM/DL Albumin 1.8 GM/DL Calcium Level 7.7 MG/DL Magnesium Level 2.0 MG/DL Alkaline Phosphatase 220 U/L Aspartate Amino Transf (AST/SGOT) 184 U/L Alanine Aminotransferase (ALT/SGPT) 45 U/L Total Bilirubin 9.4 MG/DL Sodium Level 128 MEQ/L Potassium Level 4.5 MEQ/L Chloride Level 94 MEQ/L Carbon Dioxide Level 16.1 MEQ/L Anion Gap 18 MEQ/L Estimat Glomerular Filtration Rate 17 ML/MIN Lactic Acid Level 8.3 mmol/L Total Creatine Kinase 437 U/L Creatine Kinase MB 18.6 NG/ML Creatine Kinase MB % 4.3 % Troponin I 3.91 NG/ML Lipase 132 U/L Ethyl Alcohol Level LESS THAN 3 MG/DL Blood Gas Puncture Site RT PEDAL Blood Gas Patient Temperature 98.6 Blood Gas HCO3 17 mmol/L Blood Gas Base Excess -8.6 mmol/L Blood Gas Oxygen Saturation 87 % Arterial Blood pH 7.29 Arterial Blood Partial Pressure CO2 36 mmHg Arterial Blood Partial Pressure O2 62 mmHG Arterial Blood Oxygen Content 12.3 Vol % Arterial Blood Carboxyhemoglobin 1.4 % Arterial Blood Methemoglobin 0.3 % Blood Gas Hemoglobin 10.0 G/DL Oxygen Delivery Device ROOM AIR Blood Gas Inspired Oxygen 21 % Ammonia 22 MCMOL/L MDM Supervised Visit with GALILEA: Yes Critical Care Narrative Aggregate critical care time was 80 minutes. Time to perform other separately billable procedures was not included in the critical care time. My time did not include minutes spent treating any other patients simultaneously or on activities that did not directly contribute to the patient's treatment. The services I provided to this patient were to treat and/or prevent clinically significant deterioration that could result in: Severe sepsis, DIC, intracranial bleed, acute cholecystitis I provided critical care services requiring my management, as noted below: Chart data review, documentation time, medication orders and management, vital sign assessments/reviewing monitor data, ordering and reviewing lab tests, ordering and interpreting/reviewing x-rays and diagnostic studies, care of the patient and discussion of the patient with the admitting physicians. Procedures Procedure Narrative Emergency department US guided Internal Jugular was performed with patient consent. Linear probe was used in the transverse and sagittal views of the Internal Jugular to assist with vascular access. Physician Communication Physician Communication Dr. Chadwick, Dr. Kelly, Dr. Quinteros Diagnosis Primary Impression: Severe sepsis Additional Impressions: Intracranial bleed Acute cholecystitis DIC (disseminated intravascular coagulation) Cirrhosis Qualified Codes: K70.31 - Alcoholic cirrhosis of liver with ascites Elevated troponin I level Acute renal failure Qualified Codes: N17.8 - Other acute kidney failure Hepatorenal syndrome Admitting Information Admitting Physician Requests: it Amrik Campbell MD Mar 16, 2017 23:54
--- NOTE | 2017-03-16 23:56 | RADRPT ---
EXAM DATE/TIME: 03/16/2017 23:43 [facility] COMPARISON: No previous studies available for comparison. INDICATIONS : Post central line placement. MEDICAL HISTORY : Ulcers. Gastrointestinal bleed SURGICAL HISTORY : None. ENCOUNTER: Subsequent ACUITY: 1 day PAIN SCORE: 8/10 LOCATION: Bilateral chest FINDINGS: A single view of the chest demonstrates cardiomegaly. Left jugular central line with tip in the SVC. No pneumothorax. Osseous structures are intact. CONCLUSION: 1. Adequate placement of a left jugular central line. Eran Agustin MD on March 16, 2017 at 23:54 Board Certified Radiologist. This report was verified electronically.
[2017-03-17] VITALS (28 sets, daily range): BP systolic 82–114; BP diastolic 42–62; PULSE 108–126; RESP 23–35; TEMP 97.1–98.6; O2SAT 90–98
[2017-03-17] MEDS ORDERED: RESP: ALBUTEROL 2.5 MG/IPRATROPIUM 0.5 MG NEB (PRN) NEB (00:15)
[2017-03-17 00:20] LABS: LACTIC ACID GHOST NOT REPORTABLE
[2017-03-17] MEDS: ALBUMIN 25% INJ 100 ML IV SCH ×4 (00:34→18:35)
[2017-03-17] MEDS: SODIUM BICARBONATE 8.4% INJ 150 MEQ in DEXTROSE 5% IN WATE 1000ML INJ 1,000 ML IV SCH ×4 (01:39→13:41)
[2017-03-17 02:01] LABS: LACTIC ACID GHOST NOT REPORTABLE
[2017-03-17] MEDS: PANTOPRAZOLE SODIUM 40 MG VIAL IV PUSH SCH ×3 (02:19→20:13)
[2017-03-17] MEDS: levETIRAcetam INJ 500 MG in SODIUM CHLORIDE 0.9% INJ 100 ML IV SCH ×2 (02:19→14:20)
[2017-03-17] MEDS: CHLORHEXIDINE GLUCONATE 2 % 1 PACK (2 CLOTHS) TOP SCH (04:00)
[2017-03-17] MEDS ORDERED: SUCCINYLCHOLINE CHLORIDE 200 MG/10 ML VIAL ONE (04:16)
[2017-03-17] MEDS ORDERED: ETOMIDATE 40 MG/20 ML VIAL ONE (04:16)
[2017-03-17] MEDS ORDERED: NOREPINEPHRINE-DEXTROSE DRIP 250 ML IV ONE (04:37)
[2017-03-17 04:43] LABS: HEMATOCRIT 23.8 % (39.0-51.0); MEAN CELL VOLUME 101.8 FL (80.0-100.0); MEAN CORPUSCULAR HEMOGLOBIN 34.3 PG (27.0-34.0); MEAN CORPUSCULAR HGB CONC 33.7 % (32.0-36.0); PLATELET COUNT 37 TH/MM3 (150-450); RED BLOOD COUNT 2.33 MIL/MM3 (4.50-5.90); RED CELL DISTRIBUTION WIDTH 19.9 % (11.6-17.2); WHITE BLOOD COUNT 18.3 TH/MM3 (4.0-11.0)
[2017-03-17] MEDS ORDERED: TERBUTALINE INJ 1 MG/ML AMP SQ PRN (04:45)
--- NOTE | 2017-03-17 04:46 | PD.PROCEDR ---
Procedure Note Procedure Endotracheal Intubation A time-out was completed verifying correct patient, procedure, site, positioning , and special equipment if applicable. The patient was placed in a flat position. Sedation was obtained using Etomidate 20mg. The patient was easily ventilated using an ambu bag. The [employer]/ MAC 4 BLADE was used and inserted into the oropharynx at which time there was a Grade 1 view of the vocal cords. A 8-azeri endotracheal tube was inserted and visualized going through the vocal cords. The stylette was removed. Colorimetric change was visualized on the CO2 meter. Breath sounds were heard in both lung basilio equally. The endotracheal tube was placed at 23 cm, measured at the teeth. A chest x-ray was ordered to assess for pneumothorax and verify endotrachealtube placement. Estimated Blood Loss: 0 The patient tolerated the procedure well and there were no complications. Duc Chadwick MD Mar 17, 2017 04:46
[2017-03-17 04:55] LABS: INTERNATIONAL NORMALIZED RATIO 1.6 RATIO; PROTHROMBIN TIME - PATIENT 17.5 SEC (9.8-11.6)
[2017-03-17] MEDS ORDERED: MIDAZOLAM HCL 5 MG/ML VIAL (1 ML) ONE (04:55)
[2017-03-17] MEDS ORDERED: MIDAZOLAM HCL 5 MG/ML VIAL (1 ML) IV STA (05:05)
[2017-03-17] MEDS ORDERED: ETOMIDATE 20 MG/10 ML VIAL IV PUSH STA (05:05)
[2017-03-17] MEDS ORDERED: SUCCINYLCHOLINE CHLORIDE 100 MG/5 ML SYRINGE IV PUSH STA (05:06)
[2017-03-17 05:07] LABS: HEMO FLAGS AUTO DIFF
[2017-03-17] MEDS: fentaNYL DRIP 250 ML IV PRN (05:16)
[2017-03-17] MEDS: NOREPINEPHRINE INJ 4 MG in SODIUM CHLOR 0.9% 250 ML INJ 246 ML IV PRN ×6 (05:17→21:52)
[2017-03-17] MEDS: MIDAZOLAM 100 MG/100 ML INJ 100 ML IV PRN (05:17)
[2017-03-17 05:18] LABS: BICARBONATE 17.9 MEQ/L (21.0-32.0); CALCIUM-PROTEIN CORRECTED 7.8 MG/DL (8.5-10.1); POTASSIUM 3.5 MEQ/L (3.5-5.1); TOTAL BILIRUBIN ADULT 8.4 MG/DL (0.2-1.0)
[2017-03-17 05:33] LABS: BACTERIA, URINE OCC /hpf; BLOOD, URINE MOD (NEG); COMMENT (UR) CATH-CULTURE IND; CULTURE IF INDICATED CATH CULTURE IND; GLUCOSE,URINE TRACE mg/dL (NEG); HYALINE CAST, URINE 38 /lpf (RARE); KETONE, URINE TRACE mg/dL (NEG); MUCUS URINE FEW /lpf (OCC); NITRITE,URINE NEG (NEG); SQUAMOUS EPITHELIAL CELL URINE 1 /hpf (0-5); URINE COLOR DARK-BROWN (YELLW/STRAW)
[2017-03-17] MEDS: VASOPRESSIN INJ 40 UNITS in DEXTROSE 5% IN WATER 100ML INJ 98 ML IV SCH ×2 (06:31)
[2017-03-17 07:50] LABS: BANDS 21 % (0-6); DOHLE BODIES PRESENT (NONE SEEN); METAMYELOCYTES 3 % (0-1); NEUTROPHIL # MANUAL DIFF 17.2 TH/MM3 (1.8-7.7); POLYS (SEG NEUTROPHILS) 69 % (16-70); PROMYELOCYTES 1 % (0-0); TOXIC GRANULATION 2+ (NORMAL); TOXIC VACUOLATION PRESENT (NONE SEEN); WBC DIFF SAMPLE 100
[2017-03-17 07:51] LABS: OVALOCYTES 1+ (NORMAL); PLATELET ESTIMATE SMEAR LOW (NORMAL); PLATELET MORPHOLOGY NORMAL (NORMAL); SCAN/DIFF FINAL DIFF MANUAL
[2017-03-17] MEDS: RESP: ALBUTEROL 2.5 MG/IPRATROPIUM 0.5 MG NEB (SCH) INH ×4 (08:36→21:01)
[2017-03-17 08:40] LABS: BLOOD GAS BASE EXCESS -8.3 mmol/L (-2-2); BLOOD GAS CARBOXYHEMOGLOBIN 1.1 % (0-4); BLOOD GAS HCO3 19 mmol/L (22-26); BLOOD GAS METHEMOGLOBIN 0.9 % (0-2); BLOOD GAS O2 HGB SATURATION 98 % (90-100); BLOOD GAS PCO2 51 mmHg (38-42); BLOOD GAS PO2 309 mmHg (61-120); BLOOD GAS TOTAL HGB 8.2 G/DL (12.0-16.0); CRITICAL VALUE YES; OXYGEN DEVICE VENTILATOR; TEMP CORR TO 98.6
[2017-03-17 08:41] LABS: DRAW SITE RT RADIAL; FIO2 100 %; NUMBER OF ARTERIAL PUNCTURES 1; STAT NO; ULNAR PULSE PRESENT; VENT SETTINGS PRVC/AC
[2017-03-17] MEDS ORDERED: SODIUM CHLOR 0.9% 250 ML INJ 250 ML IV ONE (09:00)
[2017-03-17] MEDS: SODIUM CHLORIDE 0.9% FLUSH 10 ML FLUSH IV FLUSH SCH ×2 (09:21→19:38)
--- NOTE | 2017-03-17 09:34 | RADRPT ---
EXAM DATE/TIME: 03/17/2017 09:37 [facility] COMPARISON: CHEST SINGLE AP, March 16, 2017, 23:43. INDICATIONS : Endotracheal tube placement. MEDICAL HISTORY : None. SURGICAL HISTORY : None. ENCOUNTER: Initial ACUITY: 2 days PAIN SCORE: Non-responsive. LOCATION: chest FINDINGS: ET tube tip is 2 cm above the santa. Left internal jugular catheter tip at cavoatrial junction. Th e lungs are symmetrically aerated; there is a new partially consolidative infiltrate in the right inf rahilar region and some patchy infiltrates in the left retrocardiac region. Both hemidiaphragms are well delineated. The heart is normal size. CONCLUSION: 1. ET tube tip 2 cm above the santa. 2. Interval development of bilateral patchy infiltrates in the right infrahilar and left retrocardiac regions. Epifanio Bravo MD on March 17, 2017 at 9:32 Board Certified Radiologist. This report was verified electronically.
--- NOTE | 2017-03-17 10:43 | PD.CONS ---
HPI History of Present Illness This is a 51 year old male who presented to the emergency room for evaluation after a syncopal episode and generalized pain. He was noted to have leukocytosis , coagulopathy, anemia, acute renal failure with multiple electrolyte abnormalities, and elevated troponin I. CT scan abdomen and pelvis without IV contrast (03/16/17)----> cholelithiasis, liver is slightly nodular but could be morphologic changes of cirrhosis, minimal ascites, small fat containing right inguinal hernia, splenomegaly. CT head appreciated minimal contusion high right parietal convexity, minimal subarachnoid hemorrhage. He was admitted to the intensive care unit for severe sepsis/lactic acidosis, acute cholecystitis, coagulopathy, traumatic subarachnoid hemorrhage, and transaminitis. Overnight, he developed respiratory distress and required emergent intubation and was placed on mechanical ventilator. An OGT was placed and they immediately suctioned red blood from his stomach. The nurse reports that he also had blood coming from his oral cavity and that they have suctioned out 1 L of blood from OGT. GI was consulted for further evaluation. He is known to our service and has been evaluated with EGD/Colonoscopy (04/29/15)---> gastric ulcers, duodenitis , esophagitis, colon polyps. It was recommended that he have a repeat EGD/ Colonoscopy in 6-8 weeks. He then had an EGD in February of [address] [facility], which showed a gastric antral ulcer (pathology reactive gastropathy, negative for helicobacter-like bacteria), hiatal hernia (small), gastritis, portal gastropathy. He then had another EGD for anemia, hematemesis (04/30/16)-- --> esophagitis, gastric ulcers, gastritis. Outpatient colonoscopy was recommended. This was not done at our office. He is currently sedated on the vent and unable to provide any history. The nurse reports that his mother stated that he continues to drink heavily, although the exact amount is unknown. [facility] Past Medical History Gastric ulcer Gastritis Hiatal hernia Portal gastropathy Suspected cirrhosis Esophagitis Pancytopenia Alcohol hepatitis Alcohol abuse Past Surgical History Foot surgery EGD Colonoscopy Coded Allergies: No Known Allergies (Verified , 03/16/17) Medications Allergies Coded Allergies Type Severity Reaction Last Updated Verified No Known Allergies 03/16/17 Yes Active Scripts Medications Dose Route/Sig Max Daily Dose Days Date Category Family History Unable to obtain Social History Drinks heavily per mother, exact quantify unknown Per EMR, no tobacco, illicit drug use. Review of Systems ROS Unable to obtain GI Exam Vitals I&O Vital Signs Date Time Temp Pulse Resp B/P (MAP) Pulse Ox O2 Delivery O2 Flow Rate FiO2 03/17/17 10:22 110 86/54 03/17/17 10:00 112 03/17/17 09:35 97.7 114 23 105/61 97 03/17/17 08:03 114 83/54 03/17/17 08:00 50 03/17/17 08:00 116 03/17/17 07:15 116 03/17/17 07:00 97 Mechanical Ventilator 50 03/17/17 07:00 117 03/17/17 06:31 116 90/54 03/17/17 06:30 97 50 03/17/17 06:30 50 03/17/17 06:00 116 03/17/17 05:17 114 86/51 03/17/17 04:45 92 50 03/17/17 04:42 Mechanical Ventilator 100 03/17/17 04:42 100 03/17/17 04:00 126 03/17/17 03:37 97.5 122 28 105/59 90 03/17/17 03:22 97.1 122 25 114/62 94 03/17/17 03:19 97.1 122 25 114/62 90 03/17/17 03:05 98.6 121 25 94 03/17/17 03:04 97.6 121 25 102/58 94 03/17/17 02:47 97.4 120 24 91/59 94 03/17/17 02:00 121 03/17/17 01:45 97.6 118 24 101/61 96 03/17/17 01:15 97.7 117 35 96/54 93 03/17/17 00:00 116 03/17/17 00:00 97.6 112 26 113/59 (77) 93 03/17/17 00:00 93 Nasal Cannula 4.00 03/17/17 00:00 95 Nasal Cannula 4.00 03/16/17 23:57 03/16/17 23:35 100 Nasal Cannula 10.00 03/16/17 23:26 108 24 108/56 (73) 97 Room Air 03/16/17 22:28 97.4 102 24 127/60 (82) 98 Room Air 03/16/17 22:26 16 98 Room Air 03/16/17 22:26 98 Room Air 03/16/17 22:26 20 99 Room Air 03/16/17 20:52 106 16 128/60 (82) 95 I/O 03/16/17 03/16/17 03/16/17 03/17/17 03/17/17 03/17/17 07:00 15:00 23:00 07:00 15:00 23:00 Intake Total 36742 ml 188 ml Output Total 1075 ml Balance 9979 ml 188 ml Intake IV Total 8438 ml 188 ml FFP 1075 ml Platelets 1050 ml Cryoprecipitate 241 ml Blood Product IV Normal Saline Flush 250 ml Output Urine Total 75 ml Stool Total 0 ml Gastric Drainage Total 1000 ml Imaging Last Impressions Chest X-Ray 03/17/17 0000 Signed Impressions: Service Date/Time: Friday, March 17, 2017 09:37 - CONCLUSION: 1. ET tube tip 2 cm above the santa. 2. Interval development of bilateral patchy infiltrates in the right infrahilar and left retrocardiac regions. Epifanio Bravo MD Head CT 03/16/17 0000 Signed Impressions: Service Date/Time: Thursday, March 16, 2017 22:50 - CONCLUSION: 1. Minimal contusion high right parietal convexity. 2. Minimal subarachnoid hemorrhage. Eran Agustin MD Chest CT 03/16/17 0000 Signed Impressions: Service Date/Time: Thursday, March 16, 2017 22:54 - CONCLUSION: 1. Minimal scarring in the lower lobes. 2. No consolidation or mass. Eran Agustin MD Abdomen/Pelvis CT 03/16/17 0000 Signed Impressions: Service Date/Time: Thursday, March 16, 2017 22:54 - CONCLUSION: 1. Cholelithiasis. 2. Liver is slightly nodular but could be early morphologic changes of cirrhosis. Minimal ascites. 3. Small fat-containing right inguinal hernia. 4. Splenomegaly. Eran Agustin MD Laboratory Test 03/16/17 22:10 03/16/17 23:10 03/16/17 23:39 03/16/17 23:55 White Blood Count 14.9 TH/MM3 Red Blood Count 3.13 MIL/MM3 Hemoglobin 10.6 GM/DL Hematocrit 31.7 % Mean Corpuscular Volume 101.1 FL Mean Corpuscular Hemoglobin 34.0 PG Mean Corpuscular Hemoglobin Concent 33.6 % Red Cell Distribution Width 20.1 % Platelet Count 27 TH/MM3 Mean Platelet Volume 10.6 FL CBC Comment AUTO DIFF Differential Total Cells Counted 100 Neutrophils % (Manual) 52 % Band Neutrophils % 34 % Monocytes % 4 % Neutrophils # (Manual) 14.3 TH/MM3 Metamyelocytes 6 % Myelocytes 3 % Promyelocytes 1 % Differential Comment FINAL DIFF MANUAL Toxic Granulation 2+ Toxic Vacuolation PRESENT Platelet Estimate LOW Platelet Morphology Comment NORMAL Ovalocytes 1+ Acanthocytes OCC Prothrombin Time 27.8 SEC Prothromb Time International Ratio 2.4 RATIO Activated Partial Thromboplast Time 43.5 SEC Fibrinogen 213 mg/dL D-Dimer Quantitative (PE/DVT) GREATER THAN 35.20 MG/L FEU Blood Urea Nitrogen 64 MG/DL Creatinine 3.84 MG/DL Random Glucose 63 MG/DL Total Protein 5.7 GM/DL Albumin 1.8 GM/DL Calcium Level 7.7 MG/DL Magnesium Level 2.0 MG/DL Alkaline Phosphatase 220 U/L Aspartate Amino Transf (AST/SGOT) 184 U/L Alanine Aminotransferase (ALT/SGPT) 45 U/L Total Bilirubin 9.4 MG/DL Sodium Level 128 MEQ/L Potassium Level 4.5 MEQ/L Chloride Level 94 MEQ/L Carbon Dioxide Level 16.1 MEQ/L Anion Gap 18 MEQ/L Estimat Glomerular Filtration Rate 17 ML/MIN Lactic Acid Level 8.3 mmol/L 7.5 mmol/L Total Creatine Kinase 437 U/L Creatine Kinase MB 18.6 NG/ML Creatine Kinase MB % 4.3 % Troponin I 3.91 NG/ML Lipase 132 U/L Ethyl Alcohol Level LESS THAN 3 MG/DL Blood Gas Puncture Site RT PEDAL Blood Gas Patient Temperature 98.6 Blood Gas HCO3 17 mmol/L Blood Gas Base Excess -8.6 mmol/L Blood Gas Oxygen Saturation 87 % Arterial Blood pH 7.29 Arterial Blood Partial Pressure CO2 36 mmHg Arterial Blood Partial Pressure O2 62 mmHG Arterial Blood Oxygen Content 12.3 Vol % Arterial Blood Carboxyhemoglobin 1.4 % Arterial Blood Methemoglobin 0.3 % Blood Gas Hemoglobin 10.0 G/DL Oxygen Delivery Device ROOM AIR Blood Gas Inspired Oxygen 21 % Ammonia 22 MCMOL/L C-Reactive Protein 8.10 MG/DL Test 03/17/17 00:10 03/17/17 04:10 03/17/17 04:14 03/17/17 05:12 Nasal Screen MRSA (PCR) MRSA DETECTED Lactic Acid Level 8.0 mmol/L White Blood Count 18.3 TH/MM3 Red Blood Count 2.33 MIL/MM3 Hemoglobin 8.0 GM/DL Hematocrit 23.8 % Mean Corpuscular Volume 101.8 FL Mean Corpuscular Hemoglobin 34.3 PG Mean Corpuscular Hemoglobin Concent 33.7 % Red Cell Distribution Width 19.9 % Platelet Count 37 TH/MM3 Mean Platelet Volume 7.6 FL CBC Comment AUTO DIFF Differential Total Cells Counted 100 Neutrophils % (Manual) 69 % Band Neutrophils % 21 % Lymphocytes % 2 % Monocytes % 4 % Neutrophils # (Manual) 17.2 TH/MM3 Metamyelocytes 3 % Promyelocytes 1 % Differential Comment FINAL DIFF MANUAL Toxic Granulation 2+ Toxic Vacuolation PRESENT Dohle Bodies PRESENT Platelet Estimate LOW Platelet Morphology Comment NORMAL Ovalocytes 1+ Acanthocytes Prothrombin Time 17.5 SEC Prothromb Time International Ratio 1.6 RATIO Blood Urea Nitrogen 62 MG/DL Creatinine 3.72 MG/DL Random Glucose 57 MG/DL Total Protein 6.0 GM/DL Albumin 2.5 GM/DL Calcium Level 7.2 MG/DL Alkaline Phosphatase 157 U/L Aspartate Amino Transf (AST/SGOT) 141 U/L Alanine Aminotransferase (ALT/SGPT) 36 U/L Total Bilirubin 8.4 MG/DL Sodium Level 132 MEQ/L Potassium Level 3.5 MEQ/L Chloride Level 96 MEQ/L Carbon Dioxide Level 17.9 MEQ/L Anion Gap 18 MEQ/L Estimat Glomerular Filtration Rate 17 ML/MIN Protein Corrected Calcium 7.8 MG/DL Total Creatine Kinase 421 U/L Creatine Kinase MB 23.0 NG/ML Creatine Kinase MB % 5.5 % Urine Color DARK-BROWN Urine Turbidity CLOUDY Urine pH 5.0 Urine Specific [place] 1.024 Urine Protein 30 mg/dL Urine Glucose (UA) TRACE mg/dL Urine Ketones TRACE mg/dL Urine Occult Blood MOD Urine Nitrite NEG Urine Bilirubin NEG Urine Urobilinogen 4.0 MG/DL Urine Leukocyte Esterase TRACE Urine RBC 25 /hpf Urine WBC 15 /hpf Urine Squamous Epithelial Cells 1 /hpf Urine Amorphous Sediment RARE Urine Bacteria OCC /hpf Urine Hyaline Casts 38 /lpf Urine Mucus FEW /lpf Microscopic Urinalysis Comment CATH-CULTURE IND Urine Opiates Screen POS Urine Barbiturates Screen NEG Urine Amphetamines Screen NEG Urine Benzodiazepines Screen NEG Urine Cocaine Screen NEG Urine Cannabinoids Screen NEG Test 03/17/17 06:05 03/17/17 08:32 Blood Gas Puncture Site RT RADIAL Blood Gas Patient Temperature 98.6 Blood Gas HCO3 19 mmol/L Blood Gas Base Excess -8.3 mmol/L Blood Gas Oxygen Saturation 98 % Arterial Blood pH 7.19 Arterial Blood Partial Pressure CO2 51 mmHg Arterial Blood Partial Pressure O2 309 mmHg Arterial Blood Oxygen Content 12.0 Vol % Arterial Blood Carboxyhemoglobin 1.1 % Arterial Blood Methemoglobin 0.9 % Blood Gas Hemoglobin 8.2 G/DL Oxygen Delivery Device VENTILATOR Blood Gas Ventilator Setting PRVC/AC Blood Gas Inspired Oxygen 100 % Lactic Acid Level 8.3 mmol/L Date/Time Source Procedure Growth Status 03/16/17 22:15 Blood Peripheral Aerobic Blood Culture - Preliminary Gram Positive Cocci Resulted 03/16/17 22:15 Anaerobic Blood Culture - Preliminary Gram Positive Cocci Resulted 03/16/17 22:15 Nasal Washing Influenza Types A,B Antigen (KIM) - Final NEGATIVE FOR FLU A AND B ANTIGEN.... Complete 03/17/17 05:12 Urine Catheterized Urine Urine Culture Pending Received Physical Examination HEENT: Normocephalic; atraumatic; no jaundice. CHEST: Resp. even, OETT to mechanical ventilator. Diminished bases. CARDIAC: Tachycardic, regular. On vasopressors ABDOMEN: Soft, distended, bowel sounds are present in all four quadrants. OGT to LIWS with dark red blood in tubing EXTREMITIES: Generalized edema. 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 Assessment and Plan Plan ASSESSMENT: - Upper GIB. Pt with known hx of liver cirrhosis, portal gastropathy, and recurrent/persistent gastric ulcer. Pt developed respiratory distress, required emergent intubation. OGT was placed and they immediately got red blood in return. The nurse reports 1L was suctioned. He is known to our service and has been evaluated with EGD/Colonoscopy (04/29/15)---> gastric ulcers, duodenitis, esophagitis, colon polyps. It was recommended that he have a repeat EGD/Colonoscopy in 6-8 weeks. He then had an EGD in February of [address] [facility], which showed a gastric antral ulcer (pathology reactive gastropathy, negative for helicobacter-like bacteria), hiatal hernia (small) , gastritis, portal gastropathy. He then had another EGD for anemia, hematemesis (04/30/16)----> esophagitis, gastric ulcers, gastritis. Outpatient colonoscopy was recommended. He has not followed up in our office and has continued to drink ETOH (large amount per mother). NPO, OGT to LIWS. Add Protonix Gtt, Octreotide. EGD with possible band ligation as needed. - Anemia, acute blood loss. 8.0/23.8. On #1/2 PRBC. - Ascites, mild. - Thrombocytopenia, Coagulopathy. S/P 4 units FFP, 3 units Plt, 1 unit cryoprecipitate. - Alcoholic hepatitis on underlying liver cirrhosis, elevated LFTs. CT scan abdomen and pelvis without IV contrast (03/16/17)----> cholelithiasis, liver is slightly nodular but could be morphologic changes of cirrhosis, minimal ascites, small fat containing right inguinal hernia, splenomegaly. T. Bili 9.4, AST 184, ALT 45, ALk PHosph 220. Disc. Fxn 82.080. He is on solucortef. Consider adding Pentoxifylline if steroids d/c'd. - Respiratory failure. Required emergent intubation, now sedated on vent per [facility]. CXR with bilateral patchy infiltrates in the right infrahilar and left retrocardiac regions. - Sepsis, Leukocytosis, Bacteremia, Lactic acidosis. BCx GPC (03/16/17), FLU A/ B ag negative. Urine cx pending. Zosyn, - ARF with multiple electrolyte abnormalities. Creat 3.84. Renal consulted. - NSTEMI. Troponin 3.91. Per [facility] - [facility]. CT head appreciated minimal contusion high right parietal convexity, minimal subarachnoid hemorrhage. - Cholelithiasis. LFTs do not appear obstructive. He does have sepsis, bacteremia with GPC. Zosyn - ETOH abuse. DT precautions per attending. - Hx persistent gastric ulcer. PLAN: - Plan for egd with band ligation. - Obtain consents - NPO - OGT to LIWS - Octreotide Bolus and then Gtt - Protonix Gtt - Monitor HH q6h - Transfuse as necessary - CBC, CMP in am - [facility] following - Renal consulted - Supportive care - Further recommendations to follow based on results of above - Pt seen and examined by Dr. Small and myself and this note is written on his behalf Harini Pierson Mar 17, 2017 10:43
[2017-03-17] MEDS ORDERED: SODIUM CHLORIDE 0.9% FLUSH 10 ML FLUSH IV FLUSH PRN (11:00)
[2017-03-17] MEDS ORDERED: SODIUM CHLORIDE 0.9% FLUSH 10 ML FLUSH IV FLUSH SCH (11:00)
[2017-03-17] MEDS ORDERED: OCTREOTIDE INJ 50 MCG/ML AMP IV PUSH ONE (11:30)
[2017-03-17] MEDS: OCTREOTIDE INJ 500 MCG in SODIUM CHLORID 0.9% 500 ML INJ 499.5 ML IV SCH ×2 (12:09→21:53)
[2017-03-17] MEDS: PANTOPRAZOLE INJ 80 MG in SODIUM CHLORIDE 0.9% INJ 100 ML IV SCH ×2 (12:09→21:30)
[2017-03-17 12:35] LABS: BLOOD GAS BASE EXCESS -7.5 mmol/L (-2-2); BLOOD GAS CARBOXYHEMOGLOBIN 1.5 % (0-4); BLOOD GAS HCO3 18 mmol/L (22-26); BLOOD GAS METHEMOGLOBIN 0.7 % (0-2); BLOOD GAS O2 HGB SATURATION 95 % (90-100); BLOOD GAS OXYGEN CONTENT 10.8 Vol % (12.0-20.0); BLOOD GAS PCO2 41 mmHg (38-42); BLOOD GAS PO2 102 mmHg (61-120); BLOOD GAS TOTAL HGB 7.9 G/DL (12.0-16.0); CRITICAL VALUE YES; OXYGEN DEVICE VENTILATOR; TEMP CORR TO 98.6
[2017-03-17 12:36] LABS: DRAW SITE ART LINE; FIO2 50 %; STAT NO
[2017-03-17] MEDS ORDERED: EPINEPHrine HCL (1:1000) 1 MG/ML VIAL ONE (13:16)
[2017-03-17] MEDS: EPINEPHrine (1:1000) INJ 2 MG in DEXTROSE 5% IN WATER INJ 250 ML IV PRN ×4 (13:17→16:56)
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
--- NOTE | 2017-03-17 13:59 | HHI.GIFU ---
Subjective Remarks EGD performed at bedside. Patient is critical is felt to be in DIC. He has greatly elevated bilirubin and could be in liver failure. Could not give sedation a patient is on high doses of pressors and blood pressure is low. Family advised of his dire condition and requested that I proceed with attempt at controlling hemorrhage if it is coming from Esophageal varices or gastric ulcer amenable to treatment. Pt has not been having melena. Scope advanced into the esophagus and down to the duodenal bulb. No fresh blood was seen in the stomach and no clots seen. No varices were appreciated. The second and third part of duodenum could not be entered. The bulb could not be well seen but no fresh blood. There was fresh blood in the mouth and tongue. No intervention was performed. Pt tolerated the procedure well. BP was increased during the procedure. Objective Vitals I&O Vital Signs Date Time Temp Pulse Resp B/P (MAP) Pulse Ox O2 Delivery O2 Flow Rate FiO2 03/17/17 12:39 106 97/51 03/17/17 12:00 108 03/17/17 12:00 50 03/17/17 11:45 96 50 03/17/17 10:33 110 88/52 03/17/17 10:22 110 86/54 03/17/17 10:00 112 03/17/17 09:35 97.7 114 23 105/61 97 03/17/17 08:03 114 83/54 03/17/17 08:00 50 03/17/17 08:00 116 03/17/17 07:15 116 03/17/17 07:00 97 Mechanical Ventilator 50 03/17/17 07:00 117 03/17/17 06:31 116 90/54 03/17/17 06:30 97 50 03/17/17 06:30 50 03/17/17 06:00 116 03/17/17 05:17 114 86/51 03/17/17 04:45 92 50 03/17/17 04:42 Mechanical Ventilator 100 03/17/17 04:42 100 03/17/17 04:00 126 03/17/17 03:37 97.5 122 28 105/59 90 03/17/17 03:22 97.1 122 25 114/62 94 03/17/17 03:19 97.1 122 25 114/62 90 03/17/17 03:05 98.6 121 25 94 03/17/17 03:04 97.6 121 25 102/58 94 03/17/17 02:47 97.4 120 24 91/59 94 03/17/17 02:00 121 03/17/17 01:45 97.6 118 24 101/61 96 03/17/17 01:15 97.7 117 35 96/54 93 03/17/17 00:00 116 03/17/17 00:00 97.6 112 26 113/59 (77) 93 03/17/17 00:00 93 Nasal Cannula 4.00 03/17/17 00:00 95 Nasal Cannula 4.00 03/16/17 23:57 03/16/17 23:35 100 Nasal Cannula 10.00 03/16/17 23:26 108 24 108/56 (73) 97 Room Air 03/16/17 22:28 97.4 102 24 127/60 (82) 98 Room Air 03/16/17 22:26 16 98 Room Air 03/16/17 22:26 98 Room Air 03/16/17 22:26 20 99 Room Air 03/16/17 20:52 106 16 128/60 (82) 95 I/O 03/16/17 03/16/17 03/16/17 03/17/17 03/17/17 03/17/17 07:00 15:00 23:00 07:00 15:00 23:00 Intake Total 87896 ml 588 ml Output Total 1075 ml Balance 9979 ml 588 ml Intake IV Total 8438 ml 188 ml Packed Cells 400 ml FFP 1075 ml Platelets 1050 ml Cryoprecipitate 241 ml Blood Product IV Normal Saline Flush 250 ml Output Urine Total 75 ml Stool Total 0 ml Gastric Drainage Total 1000 ml Laboratory Laboratory Tests Test 03/16/17 22:10 03/16/17 23:10 03/16/17 23:39 03/16/17 23:55 White Blood Count 14.9 Red Blood Count 3.13 Hemoglobin 10.6 Hematocrit 31.7 Mean Corpuscular Volume 101.1 Mean Corpuscular Hemoglobin 34.0 Mean Corpuscular Hemoglobin Concent 33.6 Red Cell Distribution Width 20.1 Platelet Count 27 Mean Platelet Volume 10.6 CBC Comment AUTO DIFF Differential Total Cells Counted 100 Neutrophils % (Manual) 52 Band Neutrophils % 34 Monocytes % 4 Neutrophils # (Manual) 14.3 Metamyelocytes 6 Myelocytes 3 Promyelocytes 1 Differential Comment FINAL DIFF MANUAL Toxic Granulation 2+ Toxic Vacuolation PRESENT Platelet Estimate LOW Platelet Morphology Comment NORMAL Ovalocytes 1+ Acanthocytes OCC Prothrombin Time 27.8 Prothromb Time International Ratio 2.4 Activated Partial Thromboplast Time 43.5 Fibrinogen 213 D-Dimer Quantitative (PE/DVT) GREATER THAN 35.20 Blood Urea Nitrogen 64 Creatinine 3.84 Random Glucose 63 Total Protein 5.7 Albumin 1.8 Calcium Level 7.7 Magnesium Level 2.0 Alkaline Phosphatase 220 Aspartate Amino Transf (AST/SGOT) 184 Alanine Aminotransferase (ALT/SGPT) 45 Total Bilirubin 9.4 Sodium Level 128 Potassium Level 4.5 Chloride Level 94 Carbon Dioxide Level 16.1 Anion Gap 18 Estimat Glomerular Filtration Rate 17 Lactic Acid Level 8.3 7.5 Total Creatine Kinase 437 Creatine Kinase MB 18.6 Creatine Kinase MB % 4.3 Troponin I 3.91 Lipase 132 Ethyl Alcohol Level LESS THAN 3 Blood Gas Puncture Site RT PEDAL Blood Gas Patient Temperature 98.6 Blood Gas HCO3 17 Blood Gas Base Excess -8.6 Blood Gas Oxygen Saturation 87 Arterial Blood pH 7.29 Arterial Blood Partial Pressure CO2 36 Arterial Blood Partial Pressure O2 62 Arterial Blood Oxygen Content 12.3 Arterial Blood Carboxyhemoglobin 1.4 Arterial Blood Methemoglobin 0.3 Blood Gas Hemoglobin 10.0 Oxygen Delivery Device ROOM AIR Blood Gas Inspired Oxygen 21 Ammonia 22 C-Reactive Protein 8.10 Test 03/17/17 00:10 03/17/17 04:10 03/17/17 04:14 03/17/17 05:12 Nasal Screen MRSA (PCR) MRSA DETECTED Lactic Acid Level 8.0 White Blood Count 18.3 Red Blood Count 2.33 Hemoglobin 8.0 Hematocrit 23.8 Mean Corpuscular Volume 101.8 Mean Corpuscular Hemoglobin 34.3 Mean Corpuscular Hemoglobin Concent 33.7 Red Cell Distribution Width 19.9 Platelet Count 37 Mean Platelet Volume 7.6 CBC Comment AUTO DIFF Differential Total Cells Counted 100 Neutrophils % (Manual) 69 Band Neutrophils % 21 Lymphocytes % 2 Monocytes % 4 Neutrophils # (Manual) 17.2 Metamyelocytes 3 Promyelocytes 1 Differential Comment FINAL DIFF MANUAL Toxic Granulation 2+ Toxic Vacuolation PRESENT Dohle Bodies PRESENT Platelet Estimate LOW Platelet Morphology Comment NORMAL Ovalocytes 1+ Acanthocytes Prothrombin Time 17.5 Prothromb Time International Ratio 1.6 Blood Urea Nitrogen 62 Creatinine 3.72 Random Glucose 57 Total Protein 6.0 Albumin 2.5 Calcium Level 7.2 Alkaline Phosphatase 157 Aspartate Amino Transf (AST/SGOT) 141 Alanine Aminotransferase (ALT/SGPT) 36 Total Bilirubin 8.4 Sodium Level 132 Potassium Level 3.5 Chloride Level 96 Carbon Dioxide Level 17.9 Anion Gap 18 Estimat Glomerular Filtration Rate 17 Protein Corrected Calcium 7.8 Total Creatine Kinase 421 Creatine Kinase MB 23.0 Creatine Kinase MB % 5.5 Urine Color DARK-BROWN Urine Turbidity CLOUDY Urine pH 5.0 Urine Specific [place] 1.024 Urine Protein 30 Urine Glucose (UA) TRACE Urine Ketones TRACE Urine Occult Blood MOD Urine Nitrite NEG Urine Bilirubin NEG Urine Urobilinogen 4.0 Urine Leukocyte Esterase TRACE Urine RBC 25 Urine WBC 15 Urine Squamous Epithelial Cells 1 Urine Amorphous Sediment RARE Urine Bacteria OCC Urine Hyaline Casts 38 Urine Mucus FEW Microscopic Urinalysis Comment CATH-CULTURE IND Urine Opiates Screen POS Urine Barbiturates Screen NEG Urine Amphetamines Screen NEG Urine Benzodiazepines Screen NEG Urine Cocaine Screen NEG Urine Cannabinoids Screen NEG Test 03/17/17 06:05 03/17/17 08:32 03/17/17 12:12 Blood Gas Puncture Site RT RADIAL ART LINE Blood Gas Patient Temperature 98.6 98.6 Blood Gas HCO3 19 18 Blood Gas Base Excess -8.3 -7.5 Blood Gas Oxygen Saturation 98 95 Arterial Blood pH 7.19 7.27 Arterial Blood Partial Pressure CO2 51 41 Arterial Blood Partial Pressure O2 309 102 Arterial Blood Oxygen Content 12.0 10.8 Arterial Blood Carboxyhemoglobin 1.1 1.5 Arterial Blood Methemoglobin 0.9 0.7 Blood Gas Hemoglobin 8.2 7.9 Oxygen Delivery Device VENTILATOR VENTILATOR Blood Gas Ventilator Setting PRVC/AC Blood Gas Inspired Oxygen 100 50 Lactic Acid Level 8.3 Date/Time Source Procedure Growth Status 03/16/17 22:15 Blood Peripheral Aerobic Blood Culture - Preliminary Gram Positive Cocci Resulted 03/16/17 22:15 Anaerobic Blood Culture - Preliminary Gram Positive Cocci Resulted 03/17/17 06:45 Sputum Endotracheal Gram Stain Pending Received 03/17/17 06:45 Sputum Endotracheal Sputum Culture Pending Received 03/17/17 05:12 Urine Catheterized Urine Urine Culture Pending Received Physical Exam HEENT: Pupils round and reactive to light; normocephalic; atraumatic; no jaundice. Throat is clear. NECK: Neck is supple, no JVD, no lymphadenopathy. CHEST: Chest is clear to auscultation and percussion. CARDIAC: Regular rate and rhythm with no murmur gallop or rubs. ABDOMEN: Soft, nondistended, nontender; no hepatosplenomegaly; bowel sounds are present in all four quadrants. EXTREMITIES: No clubbing, cyanosis, or edema. SKIN: Normal; no rash; no jaundice. ALTO SINGER: No focal deficits; alert and oriented times three. Assessment and Plan Plan ASSESSMENT: - Upper GIB. Pt with known hx of liver cirrhosis, portal gastropathy, and recurrent/persistent gastric ulcer. Pt developed respiratory distress, required emergent intubation. OGT was placed and they immediately got red blood in return. The nurse reports 1L was suctioned. He is known to our service and has been evaluated with EGD/Colonoscopy (04/29/15)---> gastric ulcers, duodenitis, esophagitis, colon polyps. It was recommended that he have a repeat EGD/Colonoscopy in 6-8 weeks. He then had an EGD in February of 2016 at [facility], which showed a gastric antral ulcer (pathology reactive gastropathy, negative for helicobacter-like bacteria), hiatal hernia (small) , gastritis, portal gastropathy. He then had another EGD for anemia, hematemesis (04/30/16)----> esophagitis, gastric ulcers, gastritis. Outpatient colonoscopy was recommended. He has not followed up in our office and has continued to drink ETOH (large amount per mother). NPO, OGT to LIWS. Add Protonix Gtt, Octreotide. EGD with possible band ligation as needed. - Anemia, acute blood loss. 8.0/23.8. On #1/2 PRBC. - Ascites, mild. - Thrombocytopenia, Coagulopathy. S/P 4 units FFP, 3 units Plt, 1 unit cryoprecipitate. - Alcoholic hepatitis on underlying liver cirrhosis, elevated LFTs. CT scan abdomen and pelvis without IV contrast (03/16/17)----> cholelithiasis, liver is slightly nodular but could be morphologic changes of cirrhosis, minimal ascites, small fat containing right inguinal hernia, splenomegaly. T. Bili 9.4, AST 184, ALT 45, ALk PHosph 220. Disc. Fxn 82.080. He is on solucortef. Consider adding Pentoxifylline if steroids d/c'd. - Respiratory failure. Required emergent intubation, now sedated on vent per CCM. CXR with bilateral patchy infiltrates in the right infrahilar and left retrocardiac regions. - Sepsis, Leukocytosis, Bacteremia, Lactic acidosis. BCx GPC (03/16/17), FLU A/ B ag negative. Urine cx pending. Zosyn, - ARF with multiple electrolyte abnormalities. Creat 3.84. Renal consulted. - NSTEMI. Troponin 3.91. Per [facility]. CT head appreciated minimal contusion high right parietal convexity, minimal subarachnoid hemorrhage. - Cholelithiasis. LFTs do not appear obstructive. He does have sepsis, bacteremia with GPC. Zosyn - ETOH abuse. DT precautions per attending. - Hx persistent gastric ulcer. - EGD performed no bleeding seen. No ulcer seen, no fresh or clotted blood. No varices appreciated. Pt is on pressors and octreotide. May have DIC due to sepsis. PLAN: - Continue PPI drip and octreotide. - NPO - OGT to LIWS - Monitor HH q6h - Transfuse as necessary - CBC, CMP in am - CCM following - Renal consulted - Supportive care - Further recommendations to follow based on results of above - Rescope if further evidence of active GI bleed. Oz Small MD Mar 17, 2017 13:59
[2017-03-17] MEDS ORDERED: Vancomycin Consult Pharmacy 1 EA OTHER SCH (14:00)
--- NOTE | 2017-03-17 14:01 | OTSOAPIP ---
RECEIVED OCCUPATIONAL THERAPY ORDERS. PATIENT IS MEDICALLY UNSTABLE AT THIS TIME PER RN. IS RECEIVING EGD AT THIS TIME AT BEDSIDE. RN REQUESTS TO HOLD EVALUATION THIS DATE. WILL FOLLOW UP WITH PATIENT NEXT DAY. INTERDISCIPLINARY COMMUNICATION: REVIEWED ELECTRONIC MEDICAL RECORD, SPOKE WITH RN Therapist: Maryann Patricio, OTR/L Signature on file
[2017-03-17] MEDS: ceFAZolin 2 GM PREMIX 50 ML IV SCH ×2 (14:20→20:13)
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
[2017-03-17] MEDS ORDERED: SODIUM CHLOR 0.9% 1000 ML INJ 1,000 ML IV ONE (15:15)
[2017-03-17] MEDS ORDERED: VANCOMYCIN 1,000 MG/NS 250 ML IV ONE ×2 (16:00)
[2017-03-17 16:13] LABS: HEMATOCRIT 28.9 % (39.0-51.0)
[2017-03-17 16:19] LABS: REVIEW FLAG FINAL
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
--- NOTE | 2017-03-17 16:39 | ECHRPT ---
Indication: Coronary Atherosclerosis CONCLUSIONS Normal left ventricular size. Wall thickness is normal. The left ventricular systolic function is low normal with an estimated ejection fraction in the rang e of 50- 55%. The right ventricular systolic function is mildly decreased. Mitral annular calcification is present. Mild mitral valve regurgitation. Moderate aortic valve stenosis. Mild aortic valve regurgitation. Mild thickening of the aortic valve leaflets. There is a trivial pericardial effusion present. BP: 90 / 54 HR: 116 Rhythm: Sinus MEASUREMENTS (Male / Female) Normal Values Technical Quality:Good 2D ECHO LV Diastolic Diameter PLAX 5.1 cm 4.2 - 5.9 / 3.9 - 5.3 cm LV Systolic Diameter PLAX 3.9 cm IVS Diastolic Thickness 1.0 cm 0.6 - 1.0 / 0.6 - 0.9 cm LVPW Diastolic Thickness 0.7 cm 0.6 - 1.0 / 0.6 - 0.9 cm LV Relative Wall Thickness 0.3 RV Internal Dim ED PLAX 2.8 cm LA Systolic Diameter LX 3.6 cm 3.0 - 4.0 / 2.7 - 3.8 cm M-MODE Aortic Root Diameter MM 3.8 cm AV Cusp Separation MM 2.0 cm DOPPLER AV Peak Velocity 341.0 cm/s AV Peak Gradient 46.5 mmHg AV Mean Gradient 25.0 mmHg AV Velocity Time Integral 68.0 cm LVOT Peak Velocity 137.0 cm/s LVOT Peak Gradient 7.5 mmHg LVOT Velocity Time Integral 25.3 cm MV Peak Velocity 174.0 cm/s MV Peak Gradient 12.1 mmHg MV Mean Velocity 80.5 cm/s MV Mean Gradient 3.0 mmHg Mitral E Point Velocity 113.0 cm/s Mitral A Point Velocity 104.0 cm/s Mitral E to A Ratio 1.1 TR Peak Velocity 360.0 cm/s TR Peak Gradient 51.8 mmHg FINDINGS LEFT VENTRICLE Normal left ventricular size. Wall thickness is normal. The left ventricular systolic function is low normal with an estimated ejection fraction in the rang e of 50- 55%. RIGHT VENTRICLE The right ventricular systoilc function is mildly decreased. LEFT ATRIUM The left atrial size is normal. RIGHT ATRIUM The right atrial size is normal. ATRIAL SEPTUM Normal atrial septal thickness without atrial level shunting by limited color doppler interrogation. AORTA The aortic root and proximal ascending aorta are normal in size on limited imaging. MITRAL VALVE Mitral annular calcification is present. Mild mitral valve regurgitation. AORTIC VALVE Moderate aortic valve stenosis. Mild aortic valve regurgitation. Mild thickening of the aortic valve leaflets. Aortic valve mean gradient is 25 mmHg. TRICUSPID VALVE Structurally normal tricuspid valve. No tricuspid valve stenosis or regurgitation. PULMONARY VALVE The pulmonary valve is not well visualized. VESSELS The inferior vena cava is normal in size. PERICARDIUM There is a trivial pericardial effusion present. No hemodynamically significant echocardiographic features were observed (no pre-tamponade physiology). Arnold Morillo MD, FACC (Electronically Signed) Final Date:17 March 2017 16:38
--- NOTE | 2017-03-17 17:14 | RADRPT ---
EXAM DATE/TIME: 03/17/2017 16:58 [facility] COMPARISON: No previous studies available for comparison. INDICATIONS : Left ankle swelling. MEDICAL HISTORY : None. SURGICAL HISTORY : Left ankle. ENCOUNTER: Initial ACUITY: 4 - 6 days PAIN SCORE: Non-responsive. LOCATION: Left ankle. FINDINGS: Two-view examination of the ankle demonstrates moderate lateral soft tissue swelling. There is an or thopedic screw in the medial malleolus. Some irregularity of the distal fibula suggests old healed i njury. No fracture seen. No periosteal reaction. No radiopaque foreign bodies. CONCLUSION: Lateral ankle soft tissue swelling. No acute findings in the osseous structures. Epifanio Bravo MD on March 17, 2017 at 17:12 Board Certified Radiologist. This report was verified electronically.
--- NOTE | 2017-03-17 17:16 | PD.CONS ---
[facility] Service Nephrology Consult Requested By Dr. Waters Reason for Consult ELIZABETH Primary Care Physician No Primary Care Physician History of Present Illness The patient is a 51 yo [place] male who presented to this facility on 03/16 with complaints of generalized weakness and pain. Was seen in the ED on 03/13 with similar complaint and was discharged on Doxycycline. He is an alcoholic and according to records either passed out or had syncopal event on 03/16 prompting his return. He is currently intubated and sedated so all information is obtained from previous records and mother who is present at bedside. She is unaware of any underlying kidney disease prior to his admission. He had positive BCx on 03/13 for MSSA and repeat BCx 03/16 positive for GPC. He is currently in septic shock requiring 3 inotropes for maintenance of BP. UOP has been nominal at best since admission. Underwent emergent EGD this AM as he had coffee ground emesis and blood on mouth. Started on Octreotide today. Admitting SCr at 3.84 that improved slightly to 3.72 at consultation. SCr on was 0.63 Na 132, CO2 17, LA 8.3, LFTs elevated with bili at 8.4 (Sabrina White) Review of Systems ROS Limitations: Intubated, Unresponsive (Sabrina White) Past Family Social History Allergies: Coded Allergies: No Known Allergies (Verified , 03/16/17) Past Medical History EtOH abuse ?cirrhosis GIB Homelessness Past Surgical History Reported foot surgery EGD Reported Medications Unknown Active Ordered Medications Current Medications Medications (Trade) Dose Ordered Sig/Kayleen Route Start Time Stop Time Status Last Admin (NS Flush) 2 ml UNSCH PRN IV FLUSH 03/16/17 23:30 (NS Flush) 2 ml BID IV FLUSH 03/17/17 09:00 03/17/17 09:21 (SoluCORTEF INJ) 50 mg Q6H IV PUSH 03/18/17 00:00 (Protonix Inj) 40 mg BID IV PUSH 03/17/17 00:03 03/17/17 09:25 (Duoneb Neb) 1 ampule Q6HR NEB INH 03/17/17 04:00 03/17/17 16:24 (Duoneb Neb) 1 ampule Q2HR NEB PRN NEB 03/17/17 00:15 Piperacillin Sod/ Tazobactam Sod 100 ml @ 200 mls/hr Q6H IV 03/18/17 05:00 Miscellaneous Information 1 [id number] XX 03/16/17 23:30 (Chlorhexidine 2% Cloth) 3 pack Taper DAILY@04 TOP 03/17/17 04:00 03/13/18 03:59 (Chlorhexidine 2% Cloth) 3 pack UNSCH PRN TOP 03/16/17 23:30 Albumin Human 100 ml @ 60 mls/hr Q6H IV 03/17/17 00:00 03/17/17 19:39 03/17/17 11:17 Sodium Bicarbonate 150 meq/Dextrose 1,150 ml @ 100 mls/hr [id number] IV 03/17/17 01:30 03/17/17 13:41 Levetriacetam 500 mg/Sodium Chloride 105 ml @ 420 mls/hr Q12H IV 03/17/17 02:00 03/17/17 14:20 Midazolam HCl 100 ml @ 2 mls/hr TITRATE PRN IV 03/17/17 04:45 03/17/17 05:17 Fentanyl Citrate 250 ml @ 5 mls/hr TITRATE PRN IV 03/17/17 04:45 03/17/17 05:16 Norepinephrine Bitartrate 4 mg/ Sodium Chloride 250 ml @ 7.5 mls/hr TITRATE PRN IV 03/17/17 04:45 03/17/17 12:39 (Brethine Inj) 1 mg UNSCH PRN SQ 03/17/17 04:45 Vasopressin 40 units/Dextrose 100 ml @ 1.5 mls/hr Q24H IV 03/17/17 06:00 03/17/17 06:31 Sodium Chloride 250 ml @ 15 mls/hr ONCE ONCE IV 03/17/17 09:00 03/18/17 01:39 03/17/17 09:19 Octreotide Acetate 500 mcg/ Sodium Chloride 500 ml @ 50 mls/hr Q10H IV 03/17/17 11:58 03/22/17 11:57 03/17/17 12:09 Pantoprazole Sodium 80 mg/ Sodium Chloride 100 ml @ 10 mls/hr CONTINUOUS IV 03/17/17 11:00 03/17/17 12:09 Epinephrine HCl 2 mg/Dextrose 252 ml @ 45.36 mls/ hr TITRATE PRN IV 03/17/17 14:00 03/17/17 13:17 Pharmacy Profile Note 0 ml @ 0 mls/hr UNSCH OTHER 03/17/17 14:00 Cefazolin Sodium/ Dextrose 50 ml @ 100 mls/hr Q8H IV 03/17/17 14:00 03/17/17 14:20 Vancomycin HCl 1000 mg/Sodium Chloride 250 ml @ 250 mls/hr ONCE ONCE IV 03/17/17 16:00 03/17/17 16:59 03/17/17 16:39 Family History NC Social History Homeless Has daughter but they are estranged EtOH abuse No noted illicits nor tobacco use in charts,but not certain (Sabrina White) Physical Exam Vital Signs Vital Signs Date Time Temp Pulse Resp B/P (MAP) Pulse Ox O2 Delivery O2 Flow Rate FiO2 03/17/17 16:29 98 50 03/17/17 16:00 50 03/17/17 16:00 117 03/17/17 14:00 118 03/17/17 13:17 107 85/47 03/17/17 12:39 106 97/51 03/17/17 12:00 108 03/17/17 12:00 50 03/17/17 11:45 96 50 03/17/17 10:33 110 88/52 03/17/17 10:22 110 86/54 03/17/17 10:00 112 03/17/17 09:35 97.7 114 23 105/61 97 03/17/17 08:03 114 83/54 03/17/17 08:00 50 03/17/17 08:00 116 03/17/17 07:15 116 03/17/17 07:00 97 Mechanical Ventilator 50 03/17/17 07:00 117 03/17/17 06:31 116 90/54 03/17/17 06:30 97 50 03/17/17 06:30 50 03/17/17 06:00 116 03/17/17 05:17 114 86/51 03/17/17 04:45 92 50 03/17/17 04:42 Mechanical Ventilator 100 03/17/17 04:42 100 03/17/17 04:00 126 03/17/17 03:37 97.5 122 28 105/59 90 03/17/17 03:22 97.1 122 25 114/62 94 03/17/17 03:19 97.1 122 25 114/62 90 03/17/17 03:05 98.6 121 25 94 03/17/17 03:04 97.6 121 25 102/58 94 03/17/17 02:47 97.4 120 24 91/59 94 03/17/17 02:00 121 03/17/17 01:45 97.6 118 24 101/61 96 03/17/17 01:15 97.7 117 35 96/54 93 03/17/17 00:00 116 03/17/17 00:00 97.6 112 26 113/59 (77) 93 03/17/17 00:00 93 Nasal Cannula 4.00 03/17/17 00:00 95 Nasal Cannula 4.00 03/16/17 23:57 03/16/17 23:35 100 Nasal Cannula 10.00 03/16/17 23:26 108 24 108/56 (73) 97 Room Air 03/16/17 22:28 97.4 102 24 127/60 (82) 98 Room Air 03/16/17 22:26 16 98 Room Air 03/16/17 22:26 98 Room Air 03/16/17 22:26 20 99 Room Air 03/16/17 20:52 106 16 128/60 (82) 95 Physical Exam GENERAL: Intubated, sedated SKIN: Warm and dry. HEAD: Atraumatic. Normocephalic. EYES: Pupils equal and round. No scleral icterus. No injection or drainage. ENT: Mouth with bloody discharge NECK: Trachea midline. No JVD. CARDIOVASCULAR: Regular rate and rhythm. RESPIRATORY: No accessory muscle use. Clear to auscultation. Breath sounds equal bilaterally. GASTROINTESTINAL: Abdomen soft, non-tender, nondistended. Hepatic and splenic margins not palpable. MUSCULOSKELETAL: Extremities without clubbing, cyanosis, 1-2+ pitting edema BUE BLE NEUROLOGICAL: Sedated. PSYCHIATRIC: Sedated Laboratory Laboratory Tests Test 03/16/17 22:10 03/16/17 23:10 03/16/17 23:39 03/16/17 23:55 White Blood Count 14.9 Red Blood Count 3.13 Hemoglobin 10.6 Hematocrit 31.7 Mean Corpuscular Volume 101.1 Mean Corpuscular Hemoglobin 34.0 Mean Corpuscular Hemoglobin Concent 33.6 Red Cell Distribution Width 20.1 Platelet Count 27 Mean Platelet Volume 10.6 CBC Comment AUTO DIFF Differential Total Cells Counted 100 Neutrophils % (Manual) 52 Band Neutrophils % 34 Monocytes % 4 Neutrophils # (Manual) 14.3 Metamyelocytes 6 Myelocytes 3 Promyelocytes 1 Differential Comment FINAL DIFF MANUAL Toxic Granulation 2+ Toxic Vacuolation PRESENT Platelet Estimate LOW Platelet Morphology Comment NORMAL Ovalocytes 1+ Acanthocytes OCC Prothrombin Time 27.8 Prothromb Time International Ratio 2.4 Activated Partial Thromboplast Time 43.5 Fibrinogen 213 D-Dimer Quantitative (PE/DVT) GREATER THAN 35.20 Blood Urea Nitrogen 64 Creatinine 3.84 Random Glucose 63 Total Protein 5.7 Albumin 1.8 Calcium Level 7.7 Magnesium Level 2.0 Alkaline Phosphatase 220 Aspartate Amino Transf (AST/SGOT) 184 Alanine Aminotransferase (ALT/SGPT) 45 Total Bilirubin 9.4 Sodium Level 128 Potassium Level 4.5 Chloride Level 94 Carbon Dioxide Level 16.1 Anion Gap 18 Estimat Glomerular Filtration Rate 17 Lactic Acid Level 8.3 7.5 Total Creatine Kinase 437 Creatine Kinase MB 18.6 Creatine Kinase MB % 4.3 Troponin I 3.91 Lipase 132 Ethyl Alcohol Level LESS THAN 3 Blood Gas Puncture Site RT PEDAL Blood Gas Patient Temperature 98.6 Blood Gas HCO3 17 Blood Gas Base Excess -8.6 Blood Gas Oxygen Saturation 87 Arterial Blood pH 7.29 Arterial Blood Partial Pressure CO2 36 Arterial Blood Partial Pressure O2 62 Arterial Blood Oxygen Content 12.3 Arterial Blood Carboxyhemoglobin 1.4 Arterial Blood Methemoglobin 0.3 Blood Gas Hemoglobin 10.0 Oxygen Delivery Device ROOM AIR Blood Gas Inspired Oxygen 21 Ammonia 22 C-Reactive Protein 8.10 Test 03/17/17 00:10 03/17/17 04:10 03/17/17 04:14 03/17/17 05:12 Nasal Screen MRSA (PCR) MRSA DETECTED Lactic Acid Level 8.0 White Blood Count 18.3 Red Blood Count 2.33 Hemoglobin 8.0 Hematocrit 23.8 Mean Corpuscular Volume 101.8 Mean Corpuscular Hemoglobin 34.3 Mean Corpuscular Hemoglobin Concent 33.7 Red Cell Distribution Width 19.9 Platelet Count 37 Mean Platelet Volume 7.6 CBC Comment AUTO DIFF Differential Total Cells Counted 100 Neutrophils % (Manual) 69 Band Neutrophils % 21 Lymphocytes % 2 Monocytes % 4 Neutrophils # (Manual) 17.2 Metamyelocytes 3 Promyelocytes 1 Differential Comment FINAL DIFF MANUAL Toxic Granulation 2+ Toxic Vacuolation PRESENT Dohle Bodies PRESENT Platelet Estimate LOW Platelet Morphology Comment NORMAL Ovalocytes 1+ Acanthocytes Prothrombin Time 17.5 Prothromb Time International Ratio 1.6 Blood Urea Nitrogen 62 Creatinine 3.72 Random Glucose 57 Total Protein 6.0 Albumin 2.5 Calcium Level 7.2 Alkaline Phosphatase 157 Aspartate Amino Transf (AST/SGOT) 141 Alanine Aminotransferase (ALT/SGPT) 36 Total Bilirubin 8.4 Sodium Level 132 Potassium Level 3.5 Chloride Level 96 Carbon Dioxide Level 17.9 Anion Gap 18 Estimat Glomerular Filtration Rate 17 Protein Corrected Calcium 7.8 Total Creatine Kinase 421 Creatine Kinase MB 23.0 Creatine Kinase MB % 5.5 Urine Color DARK-BROWN Urine Turbidity CLOUDY Urine pH 5.0 Urine Specific [place] 1.024 Urine Protein 30 Urine Glucose (UA) TRACE Urine Ketones TRACE Urine Occult Blood MOD Urine Nitrite NEG Urine Bilirubin NEG Urine Urobilinogen 4.0 Urine Leukocyte Esterase TRACE Urine RBC 25 Urine WBC 15 Urine Squamous Epithelial Cells 1 Urine Amorphous Sediment RARE Urine Bacteria OCC Urine Hyaline Casts 38 Urine Mucus FEW Microscopic Urinalysis Comment CATH-CULTURE IND Urine Opiates Screen POS Urine Barbiturates Screen NEG Urine Amphetamines Screen NEG Urine Benzodiazepines Screen NEG Urine Cocaine Screen NEG Urine Cannabinoids Screen NEG Test 03/17/17 06:05 03/17/17 08:32 03/17/17 12:12 03/17/17 15:30 Blood Gas Puncture Site RT RADIAL ART LINE Blood Gas Patient Temperature 98.6 98.6 Blood Gas HCO3 19 18 Blood Gas Base Excess -8.3 -7.5 Blood Gas Oxygen Saturation 98 95 Arterial Blood pH 7.19 7.27 Arterial Blood Partial Pressure CO2 51 41 Arterial Blood Partial Pressure O2 309 102 Arterial Blood Oxygen Content 12.0 10.8 Arterial Blood Carboxyhemoglobin 1.1 1.5 Arterial Blood Methemoglobin 0.9 0.7 Blood Gas Hemoglobin 8.2 7.9 Oxygen Delivery Device VENTILATOR VENTILATOR Blood Gas Ventilator Setting PRVC/AC Blood Gas Inspired Oxygen 100 50 Lactic Acid Level 8.3 Hemoglobin 9.4 Hematocrit 28.9 Date/Time Source Procedure Growth Status 03/17/17 15:00 Blood Peripheral Aerobic Blood Culture Pending Received 03/17/17 15:00 Blood Peripheral Anaerobic Blood Culture Pending Received 03/17/17 06:45 Sputum Endotracheal Gram Stain - Final Resulted 03/17/17 06:45 Sputum Endotracheal Sputum Culture Pending Resulted 03/17/17 05:12 Urine Catheterized Urine Urine Culture Pending Received (Sabrina White) Result Diagram: 03/17/17 1530 03/17/17 0414 Imaging Last Impressions Chest X-Ray 03/17/17 0000 Signed Impressions: Service Date/Time: Friday, March 17, 2017 09:37 - CONCLUSION: 1. ET tube tip 2 cm above the santa. 2. Interval development of bilateral patchy infiltrates in the right infrahilar and left retrocardiac regions. Epifanio Bravo MD Head CT 03/16/17 0000 Signed Impressions: Service Date/Time: Thursday, March 16, 2017 22:50 - CONCLUSION: 1. Minimal contusion high right parietal convexity. 2. Minimal subarachnoid hemorrhage. Eran Agustin MD Chest CT 03/16/17 0000 Signed Impressions: Service Date/Time: Thursday, March 16, 2017 22:54 - CONCLUSION: 1. Minimal scarring in the lower lobes. 2. No consolidation or mass. Eran Agustin MD Abdomen/Pelvis CT 03/16/17 0000 Signed Impressions: Service Date/Time: Thursday, March 16, 2017 22:54 - CONCLUSION: 1. Cholelithiasis. 2. Liver is slightly nodular but could be early morphologic changes of cirrhosis. Minimal ascites. 3. Small fat-containing right inguinal hernia. 4. Splenomegaly. Eran Agustin MD (Sabrina White) Assessment and Plan Problem List: (1) Acute renal failure (ARF) ICD Codes: N17.9 - Acute kidney failure, unspecified Plan: The patient is in acute renal failure likely secondary to septic shock. He is requiring multiple inotropes to maintain BP and even so is marginal. UOP negative since admission despite multiple fluid boluses. Situation discussed with his mother who is present. He is severely ill and he will likely require dialytic intervention in the next 24h or so. Given his unstable BP, he likely would not be able to sustain conventional dialysis, so consideration would have to be given to start CRRT. He has underlying liver disease of uncertain severity which does complicate his long-term prognosis. Palliative care is on case. He has sisters who are coming in tomorrow for discussion of long-term goals. Continue on bicarb drip given acidosis. Would try to limit fluid boluses given his fluid retention. CC on case and is optimizing blood pressure We will follow with labs tomorrow and further management to follow clinical status. Medications should be adjusted for the patient's renal decline. Avoid gadolinium. (2) Severe sepsis ICD Codes: A41.9 - Sepsis, unspecified organism; R65.20 - Severe sepsis without septic shock Status: Acute Plan: Reviewed CC and ID notes On multiple abx. BCx repeated 03/17 are pending. (3) Cirrhosis ICD Codes: K74.60 - Unspecified cirrhosis of liver Status: Acute Plan: GI on case (4) Pancytopenia, acquired ICD Codes: D61.818 - Other pancytopenia Status: Acute (5) Intracranial bleed ICD Codes: I62.9 - Nontraumatic intracranial hemorrhage, unspecified Status: Acute (Sabrina White) Assessment and Plan I discussed with the patient's mother severity of the patient's current clinical condition and guarded prognosis. Continue to monitor patient. Dialytic support may become a consideration with her next 24 hours if patient stable enough to tolerate same. The exam, history, and the medical decision-making described in the above note were completed with the assistance of the PAMichelle. I reviewed and agree with the findings presented. I attest that I had a [id number] encounter with the patient on the same day, and personally performed and documented my assessment and findings in the medical record. (Kaykay Pimentel MD) Problem Qualifiers (1) Cirrhosis: Qualified Codes: K70.31 - Alcoholic cirrhosis of liver with ascites Sabrina White Mar 17, 2017 17:16 Kaykay Pimentel MD Mar 17, 2017 17:27
--- NOTE | 2017-03-17 19:56 | PD.CONS ---
HPI Service Urology Consult Requested By Reason for Consult Scrotal swelling Primary Care Physician No Primary Care Physician Diagnosis: History of Present Illness 51yo male admitted due to lethargy with concern for subarachnoid hemorrhage and evidence of severe sepsis currently intubated with multiple pressors now seen in consultation for scrotal swelling and decreased UOP. He was reporting some lower abdominal pain upon admit. History obtained from the chart. Elevated Cr with poor urine output. Recently he has been noted to have bloody urine output. Catheter flushing was difficult with minimal return, bloody output as well as blood around the catheter. Review of Systems ROS Limitations: Clinical Condition, Intubated Constitutional: DENIES: Fever Ears, nose, mouth, throat: DENIES: Hearing loss Respiratory: DENIES: Cough Cardiovascular: DENIES: Chest pain, Palpitations Gastrointestinal: COMPLAINS OF: Bloody stools Genitourinary: COMPLAINS OF: Hematuria Musculoskeletal: COMPLAINS OF: Joint Swelling Integumentary: DENIES: Abnormal pigmentation Hematologic/lymphatic: COMPLAINS OF: Bruising Psychiatric: DENIES: Anxiety, Agitation Except as stated in HPI: all other systems reviewed are Neg Past Family Social History Past Medical History EtOH abuse cirrhosis GIB Homelessness Past Surgical History Reported foot surgery EGD Reported Medications Reported Meds & Active Scripts Active Allergies: Coded Allergies: No Known Allergies (Verified , 03/16/17) Active Ordered Medications Current Medications Medications (Trade) Dose Ordered Sig/Kayleen Route Start Time Stop Time Status Last Admin (NS Flush) 2 ml UNSCH PRN IV FLUSH 03/16/17 23:30 (NS Flush) 2 ml BID IV FLUSH 03/17/17 09:00 03/17/17 19:38 (Protonix Inj) 40 mg BID IV PUSH 03/17/17 00:03 03/18/17 08:48 (Duoneb Neb) 1 ampule Q6HR NEB INH 03/17/17 04:00 03/18/17 08:44 (Duoneb Neb) 1 ampule Q2HR NEB PRN NEB 03/17/17 00:15 Miscellaneous Information 1 [id number] XX 03/16/17 23:30 (Chlorhexidine 2% Cloth) 3 pack Taper DAILY@04 TOP 03/17/17 04:00 03/13/18 03:59 03/18/17 04:00 (Chlorhexidine 2% Cloth) 3 pack UNSCH PRN TOP 03/16/17 23:30 Sodium Bicarbonate 150 meq/Dextrose 1,150 ml @ 100 mls/hr [id number] IV 03/17/17 01:30 03/18/17 11:54 Levetriacetam 500 mg/Sodium Chloride 105 ml @ 420 mls/hr Q12H IV 03/17/17 02:00 03/18/17 14:11 Midazolam HCl 100 ml @ 2 mls/hr TITRATE PRN IV 03/17/17 04:45 03/17/17 05:17 Fentanyl Citrate 250 ml @ 5 mls/hr TITRATE PRN IV 03/17/17 04:45 03/17/17 05:16 (Brethine Inj) 1 mg UNSCH PRN SQ 03/17/17 04:45 Octreotide Acetate 500 mcg/ Sodium Chloride 500 ml @ 50 mls/hr Q10H IV 03/17/17 11:58 03/22/17 11:57 03/17/17 21:53 Pharmacy Profile Note 0 ml @ 0 mls/hr UNSCH OTHER 03/17/17 14:00 (Bactroban Nasal 2% Oint) 1 applic BID NASAL 03/17/17 21:00 03/18/17 09:00 Cefazolin Sodium 1000 mg/Sodium Chloride 100 ml @ 100 mls/hr Q12H IV 03/18/17 16:00 Norepinephrine Bitartrate 4 mg/ Sodium Chloride 250 ml @ 7.5 mls/hr TITRATE PRN IV 03/18/17 12:30 (SoluCORTEF INJ) 25 mg Q6H IV PUSH 03/18/17 18:00 Piperacillin Sod/ Tazobactam Sod 50 ml @ 100 mls/hr Q8H IV 03/18/17 18:00 Vasopressin 40 units/Dextrose 100 ml @ 6 mls/hr [id number] IV 03/18/17 14:00 Family History Family history reviewed and noncontributory to present illness Social History Homeless Has daughter but they are estranged EtOH abuse No noted illicits nor tobacco use in charts,but not certain Physical Exam Vital Signs Date Time Temp Pulse Resp B/P (MAP) Pulse Ox O2 Delivery O2 Flow Rate FiO2 03/17/17 19:32 Mechanical Ventilator 4.00 50 03/17/17 18:00 117 03/17/17 16:56 118 110/48 10/25/17 16:56 118 101/49 03/17/17 16:29 98 50 03/17/17 16:00 50 03/17/17 16:00 117 03/17/17 14:00 118 03/17/17 13:17 107 85/47 03/17/17 12:39 106 97/51 03/17/17 12:00 108 03/17/17 12:00 50 03/17/17 11:45 96 50 03/17/17 10:33 110 88/52 03/17/17 10:22 110 86/54 03/17/17 10:00 112 03/17/17 09:35 97.7 114 23 105/61 97 03/17/17 08:03 114 83/54 03/17/17 08:00 50 03/17/17 08:00 116 03/17/17 07:15 116 03/17/17 07:00 97 Mechanical Ventilator 50 03/17/17 07:00 117 03/17/17 06:31 116 90/54 03/17/17 06:30 97 50 03/17/17 06:30 50 03/17/17 06:00 116 03/17/17 05:17 114 86/51 03/17/17 04:45 92 50 03/17/17 04:42 Mechanical Ventilator 100 03/17/17 04:42 100 03/17/17 04:00 126 03/17/17 03:37 97.5 122 28 105/59 90 03/17/17 03:22 97.1 122 25 114/62 94 03/17/17 03:19 97.1 122 25 114/62 90 03/17/17 03:05 98.6 121 25 94 03/17/17 03:04 97.6 121 25 102/58 94 03/17/17 02:47 97.4 120 24 91/59 94 03/17/17 02:00 121 03/17/17 01:45 97.6 118 24 101/61 96 03/17/17 01:15 97.7 117 35 96/54 93 03/17/17 00:00 116 03/17/17 00:00 97.6 112 26 113/59 (77) 93 03/17/17 00:00 93 Nasal Cannula 4.00 03/17/17 00:00 95 Nasal Cannula 4.00 03/16/17 23:57 03/16/17 23:35 100 Nasal Cannula 10.00 03/16/17 23:26 108 24 108/56 (73) 97 Room Air 03/16/17 22:28 97.4 102 24 127/60 (82) 98 Room Air 03/16/17 22:26 16 98 Room Air 03/16/17 22:26 98 Room Air 03/16/17 22:26 20 99 Room Air 03/16/17 20:52 106 16 128/60 (82) 95 Physical Exam GENERAL: This is a well-nourished, well-developed patient, intubated and sedated SKIN: No rashes; Large right ecchymosis noted on right hip HEAD: Atraumatic. Normocephalic. EYES: No scleral icterus. No injection or drainage. ENT: Nose without bleeding, purulent drainage NECK: Trachea midline. CARDIOVASCULAR: Normal pulses, on pressors RESPIRATORY: Intubated. ventilated GASTROINTESTINAL: Abdomen soft, non-tender, mild distention with edema GENITOURINARY: Circumcised phallus, normal meatus. Mckeon in place, minimal to no output, bloody drainage around catheter. Scrotal edema noted, bilateral testis palpable, no masses, no evidence of infection MUSCULOSKELETAL: Extremities with edema NEUROLOGICAL: Intubated and sedated. Lab results reviewed: Yes Laboratory Tests Test 03/16/17 22:10 03/16/17 23:10 03/16/17 23:39 03/16/17 23:55 White Blood Count 14.9 Red Blood Count 3.13 Hemoglobin 10.6 Hematocrit 31.7 Mean Corpuscular Volume 101.1 Mean Corpuscular Hemoglobin 34.0 Mean Corpuscular Hemoglobin Concent 33.6 Red Cell Distribution Width 20.1 Platelet Count 27 Mean Platelet Volume 10.6 CBC Comment AUTO DIFF Differential Total Cells Counted 100 Neutrophils % (Manual) 52 Band Neutrophils % 34 Monocytes % 4 Neutrophils # (Manual) 14.3 Metamyelocytes 6 Myelocytes 3 Promyelocytes 1 Differential Comment FINAL DIFF MANUAL Toxic Granulation 2+ Toxic Vacuolation PRESENT Platelet Estimate LOW Platelet Morphology Comment NORMAL Ovalocytes 1+ Acanthocytes OCC Prothrombin Time 27.8 Prothromb Time International Ratio 2.4 Activated Partial Thromboplast Time 43.5 Fibrinogen 213 D-Dimer Quantitative (PE/DVT) GREATER THAN 35.20 Blood Urea Nitrogen 64 Creatinine 3.84 Random Glucose 63 Total Protein 5.7 Albumin 1.8 Calcium Level 7.7 Magnesium Level 2.0 Alkaline Phosphatase 220 Aspartate Amino Transf (AST/SGOT) 184 Alanine Aminotransferase (ALT/SGPT) 45 Total Bilirubin 9.4 Sodium Level 128 Potassium Level 4.5 Chloride Level 94 Carbon Dioxide Level 16.1 Anion Gap 18 Estimat Glomerular Filtration Rate 17 Lactic Acid Level 8.3 7.5 Total Creatine Kinase 437 Creatine Kinase MB 18.6 Creatine Kinase MB % 4.3 Troponin I 3.91 Lipase 132 Ethyl Alcohol Level LESS THAN 3 Blood Gas Puncture Site RT PEDAL Blood Gas Patient Temperature 98.6 Blood Gas HCO3 17 Blood Gas Base Excess -8.6 Blood Gas Oxygen Saturation 87 Arterial Blood pH 7.29 Arterial Blood Partial Pressure CO2 36 Arterial Blood Partial Pressure O2 62 Arterial Blood Oxygen Content 12.3 Arterial Blood Carboxyhemoglobin 1.4 Arterial Blood Methemoglobin 0.3 Blood Gas Hemoglobin 10.0 Oxygen Delivery Device ROOM AIR Blood Gas Inspired Oxygen 21 Ammonia 22 C-Reactive Protein 8.10 Test 03/17/17 00:10 03/17/17 04:10 03/17/17 04:14 03/17/17 05:12 Nasal Screen MRSA (PCR) MRSA DETECTED Lactic Acid Level 8.0 White Blood Count 18.3 Red Blood Count 2.33 Hemoglobin 8.0 Hematocrit 23.8 Mean Corpuscular Volume 101.8 Mean Corpuscular Hemoglobin 34.3 Mean Corpuscular Hemoglobin Concent 33.7 Red Cell Distribution Width 19.9 Platelet Count 37 Mean Platelet Volume 7.6 CBC Comment AUTO DIFF Differential Total Cells Counted 100 Neutrophils % (Manual) 69 Band Neutrophils % 21 Lymphocytes % 2 Monocytes % 4 Neutrophils # (Manual) 17.2 Metamyelocytes 3 Promyelocytes 1 Differential Comment FINAL DIFF MANUAL Toxic Granulation 2+ Toxic Vacuolation PRESENT Dohle Bodies PRESENT Platelet Estimate LOW Platelet Morphology Comment NORMAL Ovalocytes 1+ Acanthocytes Prothrombin Time 17.5 Prothromb Time International Ratio 1.6 Blood Urea Nitrogen 62 Creatinine 3.72 Random Glucose 57 Total Protein 6.0 Albumin 2.5 Calcium Level 7.2 Alkaline Phosphatase 157 Aspartate Amino Transf (AST/SGOT) 141 Alanine Aminotransferase (ALT/SGPT) 36 Total Bilirubin 8.4 Sodium Level 132 Potassium Level 3.5 Chloride Level 96 Carbon Dioxide Level 17.9 Anion Gap 18 Estimat Glomerular Filtration Rate 17 Protein Corrected Calcium 7.8 Total Creatine Kinase 421 Creatine Kinase MB 23.0 Creatine Kinase MB % 5.5 Urine Color DARK-BROWN Urine Turbidity CLOUDY Urine pH 5.0 Urine Specific [place] 1.024 Urine Protein 30 Urine Glucose (UA) TRACE Urine Ketones TRACE Urine Occult Blood MOD Urine Nitrite NEG Urine Bilirubin NEG Urine Urobilinogen 4.0 Urine Leukocyte Esterase TRACE Urine RBC 25 Urine WBC 15 Urine Squamous Epithelial Cells 1 Urine Amorphous Sediment RARE Urine Bacteria OCC Urine Hyaline Casts 38 Urine Mucus FEW Microscopic Urinalysis Comment CATH-CULTURE IND Urine Opiates Screen POS Urine Barbiturates Screen NEG Urine Amphetamines Screen NEG Urine Benzodiazepines Screen NEG Urine Cocaine Screen NEG Urine Cannabinoids Screen NEG Test 03/17/17 06:05 03/17/17 08:32 03/17/17 12:12 03/17/17 15:30 Blood Gas Puncture Site RT RADIAL ART LINE Blood Gas Patient Temperature 98.6 98.6 Blood Gas HCO3 19 18 Blood Gas Base Excess -8.3 -7.5 Blood Gas Oxygen Saturation 98 95 Arterial Blood pH 7.19 7.27 Arterial Blood Partial Pressure CO2 51 41 Arterial Blood Partial Pressure O2 309 102 Arterial Blood Oxygen Content 12.0 10.8 Arterial Blood Carboxyhemoglobin 1.1 1.5 Arterial Blood Methemoglobin 0.9 0.7 Blood Gas Hemoglobin 8.2 7.9 Oxygen Delivery Device VENTILATOR VENTILATOR Blood Gas Ventilator Setting PRVC/AC Blood Gas Inspired Oxygen 100 50 Lactic Acid Level 8.3 Hemoglobin 9.4 Hematocrit 28.9 Date/Time Source Procedure Growth Status 03/17/17 15:00 Blood Peripheral Aerobic Blood Culture Pending Received 03/17/17 15:00 Blood Peripheral Anaerobic Blood Culture Pending Received 03/17/17 06:45 Sputum Endotracheal Gram Stain - Final Resulted 03/17/17 06:45 Sputum Endotracheal Sputum Culture Pending Resulted 03/17/17 05:12 Urine Catheterized Urine Urine Culture Pending Received Result Diagram: 03/17/17 1530 03/17/17 0414 Personally reviewed images: Yes Imaging Last Impressions Chest X-Ray 03/17/17 0000 Signed Impressions: Service Date/Time: Friday, March 17, 2017 09:37 - CONCLUSION: 1. ET tube tip 2 cm above the santa. 2. Interval development of bilateral patchy infiltrates in the right infrahilar and left retrocardiac regions. Epifanio Bravo MD Ankle X-Ray 03/17/17 Signed Impressions: Service Date/Time: Friday, March 17, 2017 16:58 - CONCLUSION: Lateral ankle soft tissue swelling. No acute findings in the osseous structures. Epifanio Bravo MD Head CT 03/16/17 Signed Impressions: Service Date/Time: Thursday, March 16, 2017 22:50 - CONCLUSION: 1. Minimal contusion high right parietal convexity. 2. Minimal subarachnoid hemorrhage. Eran Agustin MD Chest CT 03/16/17 Signed Impressions: Service Date/Time: Thursday, March 16, 2017 22:54 - CONCLUSION: 1. Minimal scarring in the lower lobes. 2. No consolidation or mass. Eran Agustin MD Abdomen/Pelvis CT 03/16/17 Signed Impressions: Service Date/Time: Thursday, March 16, 2017 22:54 - CONCLUSION: 1. Cholelithiasis. 2. Liver is slightly nodular but could be early morphologic changes of cirrhosis. Minimal ascites. 3. Small fat-containing right inguinal hernia. 4. Splenomegaly. Eran Agustin MD Assessment and Plan Problem List: (1) Severe sepsis ICD Code: A41.9 - Sepsis, unspecified organism; R65.20 - Severe sepsis without septic shock Status: Acute (2) Acute renal failure (ARF) ICD Code: N17.9 - Acute kidney failure, unspecified (3) Hematuria ICD Code: R31.9 - Hematuria, unspecified Assessment and Plan Patient in critical condition with minimal bloody urine output -Indwelling 16Fr unable to be adequately irrigated -22Fr 3way catheter successfully placed -Irrigation difficult therefore catheter removed with large blood clot noted at end of catheter -22Fr catheter re-inserted and bladder irrigated with 1L sterile water. Urine irrigated to clear -Continue to irrigate catheter as needed for blood -Maintain mckeon catheter in place until clinical improvement to be alert and able to ambulate -Elevate scrotum to reduce edema -No further urological intervention indicated at this time -Please call with questions Percy Nguyen MD Mar 17, 2017 19:56
[2017-03-17] MEDS: MUPIROCIN 2% OINT 1 APPLIC/GM SYR NASAL SCH (20:13)
[2017-03-17 21:24] LABS: HEMATOCRIT 27.5 % (39.0-51.0); MEAN CORPUSCULAR HEMOGLOBIN 32.9 PG (27.0-34.0); MEAN CORPUSCULAR HGB CONC 32.9 % (32.0-36.0); PLATELET COUNT 21 TH/MM3 (150-450); RED BLOOD COUNT 2.75 MIL/MM3 (4.50-5.90); RED CELL DISTRIBUTION WIDTH 21.8 % (11.6-17.2); WHITE BLOOD COUNT 33.4 TH/MM3 (4.0-11.0)
--- NOTE | 2017-03-17 21:24 | EKG ---
Date Performed: 03/16/2017 Time Performed: 23:39:42 PTAGE: 51 years EKG: SINUS TACHYCARDIA ABNORMAL RHYTHM ECG NO PREVIOUS TRACING DOCTOR: Arnold Morillo Interpretating Date/Time 03/17/2017 21:23:53
[2017-03-17 21:35] LABS: BICARBONATE 16.4 MEQ/L (21.0-32.0)
[2017-03-17 21:52] LABS: CALCIUM-PROTEIN CORRECTED 7.3 MG/DL (8.5-10.1); POTASSIUM 3.6 MEQ/L (3.5-5.1)
--- NOTE | 2017-03-17 21:52 | MB ---
cc: ESHA WATKINS MD DATE OF CONSULTATION 03/17/2017 REASON FOR CONSULTATION Shock, rule out acute cholecystitis. HISTORY OF PRESENT ILLNESS The patient is a 51-year-old male who presented to the emergency department with syncopal episode of generalized pain. He was noted to be in shock and was intubated for airway protection, had significant leukocytosis, coagulopathy, anemia and renal failure, significant electrolyte abnormalities and elevated troponins. He had a further workup including a CT scan showing cholelithiasis, cirrhotic changes of the liver, mild ascites, inguinal hernia, splenomegaly. CT head showed minimal contusions, minimal subarachnoid hemorrhages. He was admitted to the ICU, presumptive severe septic lactic acidosis, cholecystitis, questionable coagulopathy and traumatic subarachnoid hemorrhages. The patient does have an OG in place which had some coffee grounds and concern for red blood. The patient also concerning to be in DIC with severe coagulopathy, currently on Levophed and a bicarb drip. The patient was noted to have significant alcohol, heavy drinking history. Further history and primary history obtained through records and charts as no family immediately available and the patient is intubated, sedated. PAST MEDICAL HISTORY Gastric ulcers, gastritis, hiatal hernia, cirrhosis, esophagitis. Alcoholic hepatitis. PAST SURGICAL HISTORY Foot surgery, EGD, colonoscopy. ALLERGIES NO KNOWN DRUG ALLERGIES. MEDICATIONS See EMR. FAMILY HISTORY Unable to obtain. SOCIAL HISTORY Heavy drinker per chart and mother. No smoking or IVDA. REVIEW OF SYSTEMS Unable to obtain. PHYSICAL EXAMINATION GENERAL: The patient in distress. HEENT: Normocephalic. ET tube in place. CHEST: Bilateral expansion. HEART: Tachycardiac, regular. ABDOMEN: Soft, distended. Bowel sounds present. EXTREMITIES: No abnormality, general edema. NEUROLOGIC: Sedated on vent. LABORATORY AND DIAGNOSTIC DATA WBC 18.3, hemoglobin 8, hematocrit 23.8, platelets 37. Sodium 132, potassium 3.5, BUN 62, creatinine 3.7, lactate 8, AST 141, ALT 36, T-bili 8.4, CK 23, CKMB 5.5, creatinine kinase 421, albumin 2.5, INR 2.4, PT 27.8, PTT 43.5. IMAGING STUDIES Imaging reviewed by myself. CT abdomen, pelvis cholelithiasis, cirrhotic change to the liver, mild ascites, fat with right hernia. CT chest minimal scarring. CT head contusion right parietal, minimal subarachnoid hemorrhages. ASSESSMENT The patient is a 51-year-old male appears to be in extremis on vasopressor medication, subarachnoid hemorrhages small, DIC, significant coagulopathy, electrolyte derangement, renal failure, cholelithiasis seen with some pericholecystic fluid. PLAN After full clinical, radiologic, laboratory workup the patient with the above-named issues including severe shock. Currently, agree with ICU management, intubation, airway protection, antibiotics, correct ___ coagulopathy, resuscitation. RECOMMENDATIONS Await GI recommendations for possible coffee-grounds via NG tube. The patient history of EGD with gastritis and ulcers. On review of CT scan there is no evidence of free air. I have a very low suspicion of abdominal pathology or perforated viscus. Minimal ascites and nodular liver likely related to the cirrhosis. The patient was noted to be in ED several weeks ago with thickened gallbladder wall, some fluid without abdominal pain evident at this time and testicular pain. I favor more liver etiology than real infected gallbladder pathology contributing to this patient's severe derangements and coagulopathy and presumptive septic shock. At this point the patient's abdomen also appears mildly distended without any evidence of peritoneal signs, however, the patient is sedated so this is difficult to assess, however, CT scan showed no significant intra-abdominal pathology. I will continue to follow, however, at this time I will proceed with nonoperative management. Appreciate a gastroenterology, nephrology and [facility] recommendations. MD WU Epps/MEJIA /5:52 PM /9:33 PM
[2017-03-17 22:03] LABS: REVIEW FLAG FINAL
[2017-03-17] MEDS: HYDROCORTISONE SOD SUCCINATE 100 MG VIAL IV PUSH SCH (23:24)
[2017-03-18] VITALS (15 sets, daily range): BP systolic 104–118; BP diastolic 57–66; PULSE 84–109; RESP 22; TEMP 97.9–99.3; O2SAT 94–100
[2017-03-18] LABS: CHLAMYDIA PCR NOT DETECTED (NOT DETECT); NEISSERIA PCR NOT DETECTED (NOT DETECT)
[2017-03-18] MEDS: SODIUM BICARBONATE 8.4% INJ 150 MEQ in DEXTROSE 5% IN WATE 1000ML INJ 1,000 ML IV SCH ×6 (00:34→23:58)
[2017-03-18] MEDS: levETIRAcetam INJ 500 MG in SODIUM CHLORIDE 0.9% INJ 100 ML IV SCH ×2 (01:10→14:11)
[2017-03-18] MEDS: RESP: ALBUTEROL 2.5 MG/IPRATROPIUM 0.5 MG NEB (SCH) INH ×4 (01:14→19:56)
[2017-03-18] MEDS: EPINEPHrine (1:1000) INJ 2 MG in DEXTROSE 5% IN WATER INJ 250 ML IV PRN ×2 (02:02)
[2017-03-18] MEDS: NOREPINEPHRINE INJ 4 MG in SODIUM CHLOR 0.9% 250 ML INJ 246 ML IV PRN ×2 (03:54→22:40)
[2017-03-18] MEDS: CHLORHEXIDINE GLUCONATE 2 % 1 PACK (2 CLOTHS) TOP SCH (04:00)
[2017-03-18] MEDS: HYDROCORTISONE SOD SUCCINATE 100 MG VIAL IV PUSH SCH ×4 (04:29→23:13)
[2017-03-18] MEDS: ceFAZolin 2 GM PREMIX 50 ML IV SCH (04:29)
[2017-03-18] MEDS: PIPERACIL-TAZO 4.5 GM PREMIX 100 ML IV SCH ×2 (04:29→10:43)
[2017-03-18] MEDS: PANTOPRAZOLE INJ 80 MG in SODIUM CHLORIDE 0.9% INJ 100 ML IV SCH (04:30)
[2017-03-18] MEDS: VASOPRESSIN INJ 40 UNITS in DEXTROSE 5% IN WATER 100ML INJ 98 ML IV SCH ×6 (04:30→20:04)
[2017-03-18 05:08] LABS: BLOOD GAS CARBOXYHEMOGLOBIN 1.4 % (0-4); BLOOD GAS HCO3 19 mmol/L (22-26); BLOOD GAS O2 HGB SATURATION 94 % (90-100); BLOOD GAS OXYGEN CONTENT 11.7 Vol % (12.0-20.0); BLOOD GAS PCO2 41 mmHg (38-42); BLOOD GAS PO2 92 mmHg (61-120); BLOOD GAS TOTAL HGB 8.8 G/DL (12.0-16.0); TEMP CORR TO 98.6
[2017-03-18 05:10] LABS: CRITICAL VALUE YES; DRAW SITE ALINE; FIO2 50 %; OXYGEN DEVICE VENTILATOR; STAT NO
[2017-03-18 05:42] LABS: HEMATOCRIT 26.5 % (39.0-51.0); MEAN CELL VOLUME 98.8 FL (80.0-100.0); MEAN CORPUSCULAR HEMOGLOBIN 33.1 PG (27.0-34.0); MEAN CORPUSCULAR HGB CONC 33.5 % (32.0-36.0); PLATELET COUNT 22 TH/MM3 (150-450); RED BLOOD COUNT 2.68 MIL/MM3 (4.50-5.90); RED CELL DISTRIBUTION WIDTH 21.6 % (11.6-17.2)
[2017-03-18 05:44] LABS: HEMO FLAGS AUTO DIFF
--- NOTE | 2017-03-18 06:05 | RADRPT ---
EXAM DATE/TIME: 03/18/2017 05:34 [place] COMPARISON: CHEST SINGLE AP, March 17, 2017, 9:37. INDICATIONS : Shortness of breath MEDICAL HISTORY : None. SURGICAL HISTORY : None. ENCOUNTER: Subsequent ACUITY: 3 days PAIN SCORE: Non-responsive. LOCATION: Bilateral chest FINDINGS: A single view of the chest demonstrates cardiomegaly with bibasilar densities greater left lower lobe . Endotracheal tube, nasogastric tube and left jugular central line are stable in position. There may be a kink in the left jugular line. Osseous structures are intact. CONCLUSION: Bibasilar densities slightly worse in the left lower lobe. Possible kink in left jugular central line . Eran Agustin MD on March 18, 2017 at 6:03 Board Certified Radiologist. This report was verified electronically.
[2017-03-18 06:16] LABS: BICARBONATE 19.4 MEQ/L (21.0-32.0); POTASSIUM 3.9 MEQ/L (3.5-5.1); TOTAL BILIRUBIN ADULT 12.6 MG/DL (0.2-1.0)
[2017-03-18 06:39] LABS: CALCIUM-PROTEIN CORRECTED 7.4 MG/DL (8.5-10.1)
[2017-03-18 06:59] LABS: APTT (PATIENT) 47.1 SEC (24.3-30.1); INTERNATIONAL NORMALIZED RATIO 2.4 RATIO; PROTHROMBIN TIME - PATIENT 27.4 SEC (9.8-11.6)
[2017-03-18] MEDS: OCTREOTIDE INJ 500 MCG in SODIUM CHLORID 0.9% 500 ML INJ 499.5 ML IV SCH ×2 (07:58→20:00)
--- NOTE | 2017-03-18 08:23 | HHI.PR ---
Subjective Subjective Notes intubated sedated, blood per mckeon, dark ng output Objective Vitals/I&O Vital Signs Date Time Temp Pulse Resp B/P (MAP) Pulse Ox O2 Delivery O2 Flow Rate FiO2 03/18/17 07:00 98 Mechanical Ventilator 50 03/18/17 04:30 102 123/63 03/18/17 04:00 97.9 22 03/17/17 19:32 4.00 Labs Laboratory Tests Test 03/17/17 08:32 03/17/17 12:12 03/17/17 15:30 03/17/17 20:30 Lactic Acid Level 8.3 10.2 Blood Gas Puncture Site ART LINE Blood Gas Patient Temperature 98.6 Blood Gas HCO3 18 Blood Gas Base Excess -7.5 Blood Gas Oxygen Saturation 95 Arterial Blood pH 7.27 Arterial Blood Partial Pressure CO2 41 Arterial Blood Partial Pressure O2 102 Arterial Blood Oxygen Content 10.8 Arterial Blood Carboxyhemoglobin 1.5 Arterial Blood Methemoglobin 0.7 Blood Gas Hemoglobin 7.9 Oxygen Delivery Device VENTILATOR Blood Gas Ventilator Setting Blood Gas Inspired Oxygen 50 Hemoglobin 9.4 9.0 Hematocrit 28.9 27.5 White Blood Count 33.4 Red Blood Count 2.75 Mean Corpuscular Volume 100.0 Mean Corpuscular Hemoglobin 32.9 Mean Corpuscular Hemoglobin Concent 32.9 Red Cell Distribution Width 21.8 Platelet Count 21 Mean Platelet Volume 9.0 Hematology Comments Blood Urea Nitrogen 64 Creatinine 4.43 Random Glucose 116 Total Protein 5.9 Albumin 2.8 Calcium Level 6.7 Alkaline Phosphatase 129 Aspartate Amino Transf (AST/SGOT) 177 Alanine Aminotransferase (ALT/SGPT) 38 Total Bilirubin 12.0 Sodium Level 130 Potassium Level 3.6 Chloride Level 94 Carbon Dioxide Level 16.4 Anion Gap 20 Estimat Glomerular Filtration Rate 14 Protein Corrected Calcium 7.3 Test 03/18/17 04:48 03/18/17 05:30 03/18/17 06:00 Blood Gas Puncture Site MIGUELITO Blood Gas Patient Temperature 98.6 Blood Gas HCO3 19 Blood Gas Base Excess -7.0 Blood Gas Oxygen Saturation 94 Arterial Blood pH 7.28 Arterial Blood Partial Pressure CO2 41 Arterial Blood Partial Pressure O2 92 Arterial Blood Oxygen Content 11.7 Arterial Blood Carboxyhemoglobin 1.4 Arterial Blood Methemoglobin 1.0 Blood Gas Hemoglobin 8.8 Oxygen Delivery Device VENTILATOR Blood Gas Ventilator Setting SEE COMMENT Blood Gas Inspired Oxygen 50 White Blood Count 30.0 Red Blood Count 2.68 Hemoglobin 8.9 Hematocrit 26.5 Mean Corpuscular Volume 98.8 Mean Corpuscular Hemoglobin 33.1 Mean Corpuscular Hemoglobin Concent 33.5 Red Cell Distribution Width 21.6 Platelet Count 22 Mean Platelet Volume 9.1 CBC Comment AUTO DIFF Blood Urea Nitrogen 68 Creatinine 4.64 Random Glucose 200 Total Protein 5.7 Albumin 2.5 Calcium Level 6.7 Alkaline Phosphatase 136 Aspartate Amino Transf (AST/SGOT) 189 Alanine Aminotransferase (ALT/SGPT) 38 Total Bilirubin 12.6 Sodium Level 129 Potassium Level 3.9 Chloride Level 93 Carbon Dioxide Level 19.4 Anion Gap 17 Estimat Glomerular Filtration Rate 13 Protein Corrected Calcium 7.4 Prothrombin Time 27.4 Prothromb Time International Ratio 2.4 Activated Partial Thromboplast Time 47.1 Fibrinogen 203 Date/Time Source Procedure Growth Status 03/17/17 15:00 Blood Peripheral Aerobic Blood Culture Pending Received 03/17/17 15:00 Blood Peripheral Anaerobic Blood Culture Pending Received 03/17/17 06:45 Sputum Endotracheal Gram Stain - Final Resulted 03/17/17 06:45 Sputum Endotracheal Sputum Culture Pending Resulted 03/17/17 05:12 Urine Catheterized Urine Urine Culture Pending Received Abdomen: Other (soft distended) A/P Assessment and Plan hepatic failure, shock- slowly weaning pressors PLAN empiric abx, resuscitation, correct metabolic derangement wean vent and sedation as tolerated per [facility] urology, nephro, gi following Will continue to follow, non operative mgnt observe gallbladder for now, observe abdomen with abdominal exams Zeeshan Quinteros MD Mar 18, 2017 08:23
[2017-03-18] MEDS: SODIUM CHLORIDE 0.9% FLUSH 10 ML FLUSH IV FLUSH SCH ×2 (08:41→19:35)
[2017-03-18] MEDS: PANTOPRAZOLE SODIUM 40 MG VIAL IV PUSH SCH ×2 (08:48→19:52)
[2017-03-18] MEDS ORDERED: VANCOMYCIN INJ 1,500 MG in SODIUM CHLORID 0.9% 500 ML INJ 500 ML IV SCH (09:00)
[2017-03-18] MEDS: MUPIROCIN 2% OINT 1 APPLIC/GM SYR NASAL SCH ×2 (09:00→19:52)
[2017-03-18 09:45] LABS: BANDS 23 % (0-6); CORRECTED NUCLEATED RBC 1 /100 WBC (0-0); DOHLE BODIES PRESENT (NONE SEEN); NEUTROPHIL # MANUAL DIFF 26.7 TH/MM3 (1.8-7.7); PLATELET ESTIMATE SMEAR LOW (NORMAL); PLATELET MORPHOLOGY NORMAL (NORMAL); POLYS (SEG NEUTROPHILS) 66 % (16-70); SCAN/DIFF FINAL DIFF MANUAL; TOXIC VACUOLATION PRESENT (NONE SEEN); WBC DIFF SAMPLE 100
[2017-03-18 09:46] LABS: TOXIC GRANULATION 1+ (NORMAL)
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
[2017-03-18] MEDS ORDERED: NOREPINEPHRINE INJ 4 MG in SODIUM CHLOR 0.9% 250 ML INJ 246 ML IV PRN (12:30)
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
--- NOTE | 2017-03-18 12:49 | HHI.HCPN ---
Reason for visit a. To assist with evaluation and management of symptoms including: Dyspnea, pain b. To assist medical decision maker(s) with: better understanding of current medical conditions; weighing benefits/burdens of medical treatment options; making medical treatment decisions. (Melba Sanz) Subjective/Interval History This is a 51-year-old male who was admitted with syncope, leg weakness and pain after being discharged from the hospital on the for similar complaints. ED evaluation was concerning for sepsis white blood cell count of 14.9 and lactic acid level of 8.3. Other laboratory abnormalities included an elevated INR of 2.4 and pro time of 27.8, suspicious for liver compromise in a patient with a significant history of alcohol abuse. Imaging showed a small subarachnoid hemorrhage, more concerning in the setting of his alcohol-induced coagulopathy. FFP and platelets were transfused and patient sent to the intensive care unit for monitoring. DIC was suspected. Consultations: * Nephrology: Acute kidney failure likely secondary to septic shock. Minimal urine output today with progressively worsening renal indices. It is felt likely that he will require dialysis however given his unstable blood pressure this may need to be started as CRRT. * GI: No the patient has a history of liver cirrhosis, portal gastropathy and recurrent/persistent gastric ulcer with recurrent GI bleed. Protonix drip and octreotide initiated. Plan EGD with possible band ligation as needed. * Cardiology: Consulted for non-STEMI. Due to SIADH, severe coagulopathy, septic shock requiring pressors the patient is not a candidate for cardiac catheterization or aspirin Plavix or exogenous anticoagulation. Recommend supportive care with vasopressors and antibiotics. Note a poor prognosis with consult palliative care. * Urology: Consulted for scrotal edema/erythema. Conservative intervention of elevation only. * Gen. surgery: Evaluate possible cholecystitis. No surgical intervention needed at this point, recommends continuing current intensive management. Patient seen in ICU, on ventilator, remains critically ill. Vasopressors are being weaned. He is now receiving vasopressin and Levophed, which is being weaned as well. He remains on Versed for sedation and withdraws to painful stimuli. His INR has rebounded to 2.4 after a small reduction yesterday likely from receiving 4 units of FFP, 3 units platelets, 2 RBC and 1 unit of cryoprecipitate. Small amount of rick hematuria seen in catheter. OG tube with dark drainage. His blood culture is growing gram-positive cocci. He has generalized edema. . . Family/friend interactions Contacted daughter, Carlos, via telephone. She had phoned the hospital last night and left her current number. Spoke with her briefly and she confirmed that she would be decision-maker for her father. Since yesterday's evaluation, the patient's mother, who had been acting as decision-maker pending contact with the daughter was admitted to the hospital with chest pain, palpitations and dyspnea. . (Melba Sanz) Advance Directives Living Will: Never completed Health Care Surrogate: Never completed Durable Power of Production Leader: Never completed (Melba Sanz) Objective Vital Signs Date Time Temp Pulse Resp B/P (MAP) Pulse Ox O2 Delivery O2 Flow Rate FiO2 03/18/17 12:07 98 40 03/18/17 12:00 92 03/18/17 12:00 50 03/18/17 10:00 95 03/18/17 08:44 100 50 03/18/17 08:00 50 03/18/17 08:00 95 03/18/17 07:00 98 Mechanical Ventilator 50 03/18/17 04:30 102 123/63 03/18/17 04:00 97.9 100 22 111/63 (79) 96 118/60 (79) 03/18/17 04:00 50 03/18/17 03:55 96 50 03/18/17 03:54 102 119/63 03/18/17 02:02 107 109/57 03/18/17 01:14 97 50 03/18/17 00:00 99.3 109 22 109/65 (80) 96 111/57 (75) 03/18/17 00:00 50 03/17/17 21:52 111 109/55 03/17/17 21:03 98 50 03/17/17 20:13 109 82/43 03/17/17 20:00 97.2 109 23 98/55 (69) 82/42 (55) Automatic Cuff 03/17/17 20:00 50 03/17/17 19:32 Mechanical Ventilator 4.00 50 03/17/17 19:30 115 90/46 03/17/17 19:30 115 90/45 03/17/17 18:00 117 03/17/17 16:56 118 110/48 03/17/17 16:56 118 101/49 03/17/17 16:29 98 50 03/17/17 16:00 50 03/17/17 16:00 117 03/17/17 14:00 118 03/17/17 13:17 107 85/47 03/17/17 12:39 106 97/51 Intake & Output 03/18/17 03/18/17 07:00 19:00 Intake Total 3835 ml Output Total 500 ml Balance 3335 ml Intake IV Total 3835 ml Output Urine Total 300 ml Gastric Drainage Total 200 ml # Bowel Movements 0 Physical Exam CONSTITUTIONAL/GENERAL: This is an adequately nourished patient, intubated, sedated. TUBES/LINES/DRAINS: Left central line, ETT, Ruth. SKIN: Warm and damp, mild jaundice. HEAD: Atraumatic. Normocephalic. EYES: Pupils equal and round and reactive. ENT: Mouth shows dried blood in the oral cavity. NECK: Trachea midline. Orally intubated. CARDIOVASCULAR: Tachycardic rate, regular rhythm, 2/6 systolic ejection murmur heard best at the right sternal border, diminished pulses, 1-2+ generalized edema. RESPIRATORY/CHEST: Mechanically ventilated, scattered wheezes, coarse breath sounds. GASTROINTESTINAL: Abdomen distended, hypoactive bowel sounds, OG tube with dark brown drainage. GENITOURINARY: Without palpable bladder distension. Ruth catheter in place draining minimal amounts of rick hematuria. MUSCULOSKELETAL: Extremities without clubbing or cyanosis. No joint tenderness or effusion noted. No mottling or clubbing. NEUROLOGICAL: Sedated PSYCHIATRIC: Sedated . (Melba Sanz) Diagnostic Tests Laboratory Laboratory Tests Test 03/17/17 15:30 03/17/17 20:30 03/18/17 04:48 03/18/17 05:30 Hemoglobin 9.4 9.0 8.9 Hematocrit 28.9 27.5 26.5 Rapid Plasma Reagin NON-REACTIVE Hepatitis A IgM Antibody NEGATIVE Hepatitis B Surface Antigen NEGATIVE Hepatitis B Core IgM Antibody NEGATIVE Hepatitis C Antibody REACTIVE HIV (1&2) Antibody NEGATIVE White Blood Count 33.4 30.0 Red Blood Count 2.75 2.68 Mean Corpuscular Volume 100.0 98.8 Mean Corpuscular Hemoglobin 32.9 33.1 Mean Corpuscular Hemoglobin Concent 32.9 33.5 Red Cell Distribution Width 21.8 21.6 Platelet Count 21 22 Mean Platelet Volume 9.0 9.1 Hematology Comments Blood Urea Nitrogen 64 68 Creatinine 4.43 4.64 Random Glucose 116 200 Total Protein 5.9 5.7 Albumin 2.8 2.5 Calcium Level 6.7 6.7 Alkaline Phosphatase 129 136 Aspartate Amino Transf (AST/SGOT) 177 189 Alanine Aminotransferase (ALT/SGPT) 38 38 Total Bilirubin 12.0 12.6 Sodium Level 130 129 Potassium Level 3.6 3.9 Chloride Level 94 93 Carbon Dioxide Level 16.4 19.4 Anion Gap 20 17 Estimat Glomerular Filtration Rate 14 13 Lactic Acid Level 10.2 Protein Corrected Calcium 7.3 7.4 Blood Gas Puncture Site MIGUELITO Blood Gas Patient Temperature 98.6 Blood Gas HCO3 19 Blood Gas Base Excess -7.0 Blood Gas Oxygen Saturation 94 Arterial Blood pH 7.28 Arterial Blood Partial Pressure CO2 41 Arterial Blood Partial Pressure O2 92 Arterial Blood Oxygen Content 11.7 Arterial Blood Carboxyhemoglobin 1.4 Arterial Blood Methemoglobin 1.0 Blood Gas Hemoglobin 8.8 Oxygen Delivery Device VENTILATOR Blood Gas Ventilator Setting SEE COMMENT Blood Gas Inspired Oxygen 50 CBC Comment AUTO DIFF Differential Total Cells Counted 100 Neutrophils % (Manual) 66 Band Neutrophils % 23 Lymphocytes % 2 Monocytes % 9 Neutrophils # (Manual) 26.7 Nucleated Red Blood Cells 1 Differential Comment FINAL DIFF MANUAL Toxic Granulation 1+ Toxic Vacuolation PRESENT Dohle Bodies PRESENT Platelet Estimate LOW Platelet Morphology Comment NORMAL Random Vancomycin Level 21.2 Test 03/18/17 06:00 Prothrombin Time 27.4 Prothromb Time International Ratio 2.4 Activated Partial Thromboplast Time 47.1 Fibrinogen 203 Date/Time Source Procedure Growth Status 03/17/17 15:00 Blood Peripheral Aerobic Blood Culture - Preliminary NO GROWTH IN 1 DAY Resulted 03/17/17 15:00 Blood Peripheral Anaerobic Blood Culture - Preliminary NO GROWTH IN 1 DAY Resulted 03/17/17 06:45 Sputum Endotracheal Gram Stain - Final Resulted 03/17/17 06:45 Sputum Culture - Preliminary Staph Sp Coagulase Positive Resulted 03/17/17 05:12 Urine Catheterized Urine Urine Culture Pending Received . (Melba Sanz) Result Diagram: 03/18/1730 03/18/1730 Microbiology Microbiology Date/Time Source Procedure Growth Status 03/17/17 15:00 Blood Peripheral Aerobic Blood Culture - Preliminary NO GROWTH IN 1 DAY Resulted 03/17/17 15:00 Blood Peripheral Anaerobic Blood Culture - Preliminary NO GROWTH IN 1 DAY Resulted 03/17/17 15:00 Blood Peripheral Aerobic Blood Culture - Preliminary Gram Positive Cocci Resulted 03/17/17 15:00 Blood Peripheral Anaerobic Blood Culture - Preliminary NO GROWTH IN 1 DAY Resulted 03/16/17 22:15 Blood Peripheral Aerobic Blood Culture - Preliminary Staph Sp Coagulase Positive Resulted 03/16/17 22:15 Anaerobic Blood Culture - Preliminary Staph Sp Coagulase Positive Resulted 03/16/17 22:00 Blood Peripheral Aerobic Blood Culture - Preliminary Staphylococcus Aureus Resulted 03/16/17 22:00 Anaerobic Blood Culture - Preliminary Staph Sp Coagulase Positive Resulted 03/17/17 06:45 Sputum Endotracheal Gram Stain - Final Resulted 03/17/17 06:45 Sputum Culture - Preliminary Staph Sp Coagulase Positive Resulted 03/16/17 22:15 Nasal Washing Influenza Types A,B Antigen (KIM) - Final NEGATIVE FOR FLU A AND B ANTIGEN.... Complete 03/17/17 05:12 Urine Catheterized Urine Urine Culture Pending Received Imaging Last 24 hours Impressions Chest X-Ray 03/18/17 0600 Signed Impressions: Service Date/Time: , March 18, 2017 05:34 - CONCLUSION: Bibasilar densities slightly worse in the left lower lobe. Possible kink in left jugular central line. Eran Agustin MD Procedures 03/16/17 - central line insertion. 03/17/17 - endotracheal intubation. (Melba Sanz) Assessment and Plan Disease Oriented Problem List: (1) Coagulopathy (2) Hyperammonemia (3) GI bleed (4) Transaminitis (5) Pancytopenia, acquired (6) Portal hypertension (7) Cirrhosis (8) Acute cholecystitis (9) DIC (disseminated intravascular coagulation) (10) Severe sepsis (11) Intracranial bleed Symptom Scale: (1) Dyspnea and respiratory abnormalities 0-10 Scale: Unable to quantify Comment: Mechanically ventilated with some spontaneous respirations, sedated. (2) Pain, generalized 0-10 Scale: Unable to quantify Comment: Sedated, withdraws to noxious stimuli 4 extremities. Receiving no analgesic medications at this time. Pertinent Non-Medical Issues Psychosocial:He was born in [place] and moved to [place] around 20 years ago. 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 He was an [employer] serving mostly in [place]. He was dishonorably discharged for DUI after approximately 18 months. He has a significant alcohol history and is usually homeless. In spite of multiple attempts by his mother to get him rehabilitation he has continually relapsed. He was once but is now . There was one child from that union, Carlos Rose was the last known telephone number, provided to me by the patient's mother, Madhuri Whalen, who is currently making decisions until attempts to locate his daughter can be completed. Spiritual: Raised Protestant. 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 Legal: His mother states that he does have a daughter, Carlos, from home he has been estranged most of her life. She has made intermittent contact with the patient's mother and we are attempting to contact her via the last known telephone number. In the interim, his mother would be the next decision-maker in the hierarchy per [place] statutes until the daughter can be located to determine her willingness to participate. Ethical issues impacting care: None noted. . Important Contacts Mother- Madhuri Whalen - Daughter - Carlos Rose - last known number . Last known address in [place]. . Prognosis His prognosis is poor. He presented with a significant bleed, coagulopathy and sepsis. It is thought that the sepsis may have been developing for several days prior to his presentation for this admission. There is concern for endocarditis in addition to the other sequelae of sepsis. He is currently on 3 vasopressors, epinephrine, norepinephrine and vasopressin at maximum doses to maintain hemodynamic stability. Critical care and infectious disease have reviewed this case with me and both have the opinion that his prognosis is very poor and quite possibly may not survive this hospitalization. . Code Status: Full Code Plan PLAN: Legal decision maker: By [place] statutes his daughter, Carlos Rose, would be the legal decision-maker, and has agreed to serve in that capacity. In the interim his mother, who would be next in the hierarchy per [place] statutes , had been serving as the decision-maker pending contact of the daughter. Goals: Aggressive at this time. CODE STATUS: Full code. SYMPTOMS: * Dyspnea- patient has respiratory failure, ventilatory dependent. He is at significant risk for continued respiratory decline. He is receiving antibiotics , steroids, nebulizers. Critical care medicine managing the ventilator. No weaning trials initiated at this time. * Pain- multifactorial from sepsis, mechanical ventilation, invasive lines, bedbound status. He is on Versed for sedation with no other analgesic medications ordered. As he is weaned from sedation he may require the addition of an opiate for pain management. Palliative care will continue to follow the patient during hospital course as condition evolves, to assist patient/decision-maker with understanding of their medical conditions, weighing benefits/burdens of treatment options, for clarification of goals of treatment. Additionally will assist with any symptoms of palliative concern. . (Melba Sanz) Attestation To help prompt me to consider important information that might be impacting today's encounter and assessment, information from prior notes written by myself or my colleagues may have been "brought forward" into today's note. My signature on this note, however, is an attestation that I personally performed the exam, history, and/or decision-making noted today, and, unless otherwise indicated, the interactions with patient, family, and staff as well as the review of records all occurred today. I also attest that the listed assessment and stated plan reflect my best clinical judgment today based on the combination of historical information, prior notes, and today's exam/ interactions. When time spent is documented, it refers only to time spent today by the signer, or if indicated, combined time spent today by collaborating physician/nurse practitioner. . (Melba Sanz) Collaborating MD Comments Chart reviewed. Case discussed with palliative care HAND STONECUTTER. Above HAND STONECUTTER note reviewed and I concur. . (Angelito Mendoza MD) Melba Sanz Mar 18, 2017 12:49 Angelito Mendoza MD Mar 18, 2017 17:38
--- NOTE | 2017-03-18 13:43 | PD.CARD.PN ---
Subjective Subjective Remarks intubated, sedated Objective Medications Current Medications Medications (Trade) Dose Ordered Sig/Kayleen Route Start Time Stop Time Status Last Admin (NS Flush) 2 ml UNSCH PRN IV FLUSH 03/16/17 23:30 (NS Flush) 2 ml BID IV FLUSH 03/17/17 09:00 03/17/17 19:38 (Protonix Inj) 40 mg BID IV PUSH 03/17/17 00:03 03/18/17 08:48 (Duoneb Neb) 1 ampule Q6HR NEB INH 03/17/17 04:00 03/18/17 08:44 (Duoneb Neb) 1 ampule Q2HR NEB PRN NEB 03/17/17 00:15 Miscellaneous Information 1 Q361D XX 03/16/17 23:30 (Chlorhexidine 2% Cloth) 3 pack Taper DAILY@04 TOP 03/17/17 04:00 03/13/18 03:59 03/18/17 04:00 (Chlorhexidine 2% Cloth) 3 pack UNSCH PRN TOP 03/16/17 23:30 Sodium Bicarbonate 150 meq/Dextrose 1,150 ml @ 100 mls/hr [id number] IV 03/17/17 01:30 03/18/17 11:54 Levetriacetam 500 mg/Sodium Chloride 105 ml @ 420 mls/hr Q12H IV 03/17/17 02:00 03/18/17 01:10 Midazolam HCl 100 ml @ 2 mls/hr TITRATE PRN IV 03/17/17 04:45 03/17/17 05:17 Fentanyl Citrate 250 ml @ 5 mls/hr TITRATE PRN IV 03/17/17 04:45 03/17/17 05:16 (Brethine Inj) 1 mg UNSCH PRN SQ 03/17/17 04:45 Octreotide Acetate 500 mcg/ Sodium Chloride 500 ml @ 50 mls/hr Q10H IV 03/17/17 11:58 03/22/17 11:57 03/17/17 21:53 Pharmacy Profile Note 0 ml @ 0 mls/hr UNSCH OTHER 03/17/17 14:00 (Bactroban Nasal 2% Oint) 1 applic BID NASAL 03/17/17 21:00 03/18/17 09:00 Cefazolin Sodium 1000 mg/Sodium Chloride 100 ml @ 100 mls/hr Q12H IV 03/18/17 16:00 Norepinephrine Bitartrate 4 mg/ Sodium Chloride 250 ml @ 7.5 mls/hr TITRATE PRN IV 03/18/17 12:30 (SoluCORTEF INJ) 25 mg Q6H IV PUSH 03/18/17 18:00 Piperacillin Sod/ Tazobactam Sod 50 ml @ 100 mls/hr Q8H IV 03/18/17 18:00 Vasopressin 40 units/Dextrose 100 ml @ 6 mls/hr [id number] IV 03/18/17 14:00 Vital Signs / I&O Vital Signs Date Time Temp Pulse Resp B/P (MAP) Pulse Ox O2 Delivery O2 Flow Rate FiO2 03/18/17 12:07 98 40 03/18/17 12:00 92 03/18/17 12:00 50 03/18/17 10:00 95 03/18/17 08:44 100 50 03/18/17 08:00 50 03/18/17 08:00 95 03/18/17 07:00 98 Mechanical Ventilator 50 03/18/17 04:30 102 123/63 03/18/17 04:00 97.9 100 22 111/63 (79) 96 118/60 (79) 03/18/17 04:00 50 03/18/17 03:55 96 50 03/18/17 03:54 102 119/63 03/18/17 02:02 107 109/57 03/18/17 01:14 97 50 03/18/17 00:00 99.3 109 22 109/65 (80) 96 111/57 (75) 03/18/17 00:00 50 03/17/17 21:52 111 109/55 03/17/17 21:03 98 50 03/17/17 20:13 109 82/43 03/17/17 20:00 97.2 109 23 98/55 (69) 82/42 (55) Automatic Cuff 03/17/17 20:00 50 03/17/17 19:32 Mechanical Ventilator 4.00 50 03/17/17 19:30 115 90/46 03/17/17 19:30 115 90/45 03/17/17 18:00 117 03/17/17 16:56 118 110/48 03/17/17 16:56 118 101/49 03/17/17 16:29 98 50 03/17/17 16:00 50 03/17/17 16:00 117 03/17/17 14:00 118 I/O 03/17/17 03/17/17 03/17/17 03/18/17 03/18/17 03/18/17 07:00 15:00 23:00 07:00 15:00 23:00 Intake Total 96209 ml 988 ml 400 ml 3435 ml Output Total 1075 ml 600 ml 500 ml Balance 9979 ml 988 ml -200 ml 2935 ml Intake IV Total 8438 ml 188 ml 400 ml 3435 ml Packed Cells 800 ml FFP 1075 ml Platelets 1050 ml Cryoprecipitate 241 ml Blood Product IV Normal Saline Flush 250 ml Output Urine Total 75 ml 0 ml 300 ml Stool Total 0 ml Gastric Drainage Total 1000 ml 600 ml 200 ml # Bowel Movements 0 Laboratory GENERAL: SKIN: Warm and dry. HEAD: Normocephalic. EYES: No scleral icterus. No injection or drainage. NECK: Supple, trachea midline. No JVD or lymphadenopathy. CARDIOVASCULAR: Regular rate and rhythm without murmurs, gallops, or rubs. RESPIRATORY: Breath sounds equal bilaterally. No accessory muscle use. GASTROINTESTINAL: Abdomen soft, non-tender, nondistended. MUSCULOSKELETAL: No cyanosis, or edema. BACK: Nontender without obvious deformity. No CVA tenderness. Laboratory Tests Test 03/17/17 15:30 03/17/17 20:30 03/18/17 04:48 03/18/17 05:30 Hemoglobin 9.4 GM/DL 9.0 GM/DL 8.9 GM/DL Hematocrit 28.9 % 27.5 % 26.5 % Rapid Plasma Reagin NON-REACTIVE Hepatitis A IgM Antibody NEGATIVE Hepatitis B Surface Antigen NEGATIVE Hepatitis B Core IgM Antibody NEGATIVE Hepatitis C Antibody REACTIVE HIV (1&2) Antibody NEGATIVE White Blood Count 33.4 TH/MM3 30.0 TH/MM3 Red Blood Count 2.75 MIL/MM3 2.68 MIL/MM3 Mean Corpuscular Volume 100.0 FL 98.8 FL Mean Corpuscular Hemoglobin 32.9 PG 33.1 PG Mean Corpuscular Hemoglobin Concent 32.9 % 33.5 % Red Cell Distribution Width 21.8 % 21.6 % Platelet Count 21 TH/MM3 22 TH/MM3 Mean Platelet Volume 9.0 FL 9.1 FL Hematology Comments Blood Urea Nitrogen 64 MG/DL 68 MG/DL Creatinine 4.43 MG/DL 4.64 MG/DL Random Glucose 116 MG/DL 200 MG/DL Total Protein 5.9 GM/DL 5.7 GM/DL Albumin 2.8 GM/DL 2.5 GM/DL Calcium Level 6.7 MG/DL 6.7 MG/DL Alkaline Phosphatase 129 U/L 136 U/L Aspartate Amino Transf (AST/SGOT) 177 U/L 189 U/L Alanine Aminotransferase (ALT/SGPT) 38 U/L 38 U/L Total Bilirubin 12.0 MG/DL 12.6 MG/DL Sodium Level 130 MEQ/L 129 MEQ/L Potassium Level 3.6 MEQ/L 3.9 MEQ/L Chloride Level 94 MEQ/L 93 MEQ/L Carbon Dioxide Level 16.4 MEQ/L 19.4 MEQ/L Anion Gap 20 MEQ/L 17 MEQ/L Estimat Glomerular Filtration Rate 14 ML/MIN 13 ML/MIN Lactic Acid Level 10.2 mmol/L Protein Corrected Calcium 7.3 MG/DL 7.4 MG/DL Blood Gas Puncture Site MIGUELITO Blood Gas Patient Temperature 98.6 Blood Gas HCO3 19 mmol/L Blood Gas Base Excess -7.0 mmol/L Blood Gas Oxygen Saturation 94 % Arterial Blood pH 7.28 Arterial Blood Partial Pressure CO2 41 mmHg Arterial Blood Partial Pressure O2 92 mmHg Arterial Blood Oxygen Content 11.7 Vol % Arterial Blood Carboxyhemoglobin 1.4 % Arterial Blood Methemoglobin 1.0 % Blood Gas Hemoglobin 8.8 G/DL Oxygen Delivery Device VENTILATOR Blood Gas Ventilator Setting SEE COMMENT Blood Gas Inspired Oxygen 50 % CBC Comment AUTO DIFF Differential Total Cells Counted 100 Neutrophils % (Manual) 66 % Band Neutrophils % 23 % Lymphocytes % 2 % Monocytes % 9 % Neutrophils # (Manual) 26.7 TH/MM3 Nucleated Red Blood Cells 1 /100 WBC Differential Comment FINAL DIFF MANUAL Toxic Granulation 1+ Toxic Vacuolation PRESENT Dohle Bodies PRESENT Platelet Estimate LOW Platelet Morphology Comment NORMAL Random Vancomycin Level 21.2 COMMENT Test 03/18/17 06:00 Prothrombin Time 27.4 SEC Prothromb Time International Ratio 2.4 RATIO Activated Partial Thromboplast Time 47.1 SEC Fibrinogen 203 mg/dL Imaging Last 24 hours Impressions Chest X-Ray 03/18/17 0600 Signed Impressions: Service Date/Time: February 05:34 - CONCLUSION: Bibasilar densities slightly worse in the left lower lobe. Possible kink in left jugular central line. Eran Agustin MD Assessment and Plan Problem List: (1) NSTEMI (non-ST elevated myocardial infarction) ICD Codes: I21.4 - Non-ST elevation (NSTEMI) myocardial infarction (2) Portal hypertension ICD Codes: K76.6 - Portal hypertension; R65.20 - Severe sepsis without septic shock Status: Acute (3) Cirrhosis ICD Codes: K74.60 - Unspecified cirrhosis of liver Status: Acute (4) DIC (disseminated intravascular coagulation) ICD Codes: D65 - Disseminated intravascular coagulation [defibrination syndrome ] Status: Acute (5) Severe sepsis ICD Codes: A41.9 - Sepsis, unspecified organism; R65.20 - Severe sepsis without septic shock Status: Acute (6) Intracranial bleed ICD Codes: I62.9 - Nontraumatic intracranial hemorrhage, unspecified Status: Acute (7) Dyspnea and respiratory abnormalities ICD Codes: R06.00 - Dyspnea, unspecified; R06.89 - Other abnormalities of breathing (8) Coagulopathy ICD Codes: D68.9 - Coagulation defect, unspecified Status: Acute (9) Hyperammonemia ICD Codes: E72.20 - Disorder of urea cycle metabolism, unspecified Status: Acute (10) GI bleed ICD Codes: K92.2 - Gastrointestinal hemorrhage, unspecified Status: Acute (11) Transaminitis ICD Codes: R74.0 - Nonspecific elevation of levels of transaminase and lactic acid dehydrogenase [LDH] Status: Acute (12) Pancytopenia, acquired ICD Codes: D61.818 - Other pancytopenia Status: Acute (13) Acute renal failure (ARF) ICD Codes: N17.9 - Acute kidney failure, unspecified Assessment and Plan 1.) NSTEMI - rx options limited, due to coagulopathy, ich, sepsis, arf, thrombocytopenia and anemia Problem Qualifiers (1) Cirrhosis: Qualified Codes: K70.31 - Alcoholic cirrhosis of liver with ascites Reggie Goldman MD Mar 18, 2017 13:43
--- NOTE | 2017-03-18 14:37 | EKG ---
Date Performed: 03/17/2017 Time Performed: 17:32:26 PTAGE: 51 years EKG: Sinus tachycardia LOW QRS VOLTAGE IN PRECORDIAL LEADS MODERATE ST DEPRESSION Compared to pr evious tracing there has been no significant serial change ABNORMAL ECG PREVIOUS TRACING : 03/17/2017 12.21 DOCTOR: Maxine Lezama Interpretating Date/Time 03/18/2017 14:36:36
--- NOTE | 2017-03-18 14:54 | EKG ---
Date Performed: 03/17/2017 Time Performed: 12:21:50 PTAGE: 51 years EKG: SINUS TACHYCARDIA ABNORMAL RHYTHM ECG PREVIOUS TRACING : 03/16/2017 23.39 Compared to prior tracing no significant change DOCTOR: Maxine Lezama Interpretating Date/Time 03/18/2017 14:51:25
--- NOTE | 2017-03-18 17:06 | HHI.NPPN ---
Subjective History of Present Illness he patient is a 51 yo [place] male who presented to this facility on 03/16 with complaints of generalized weakness and pain. Was seen in the ED on 03/13 with similar complaint and was discharged on Doxycycline. He is an alcoholic and according to records either passed out or had syncopal event on 03/16 prompting his return. He is currently intubated and sedated so all information is obtained from previous records and mother who is present at bedside. She is unaware of any underlying kidney disease prior to his admission. He had positive BCx on 03/13 for MSSA and repeat BCx 03/16 positive for GPC. Septic shock requiring inotropes for maintenance of BP. UOP has been nominal at best since admission. Underwent emergent EGD as he had coffee ground emesis and blood on mouth. Started Octreotide today. Admitting SCr at 3.84 that improved slightly to 3.72 at consultation. SCr on was 0.63 Interval History Patient remains intubated on ventilatory support unable to communicate. Nonresponsive. Review of Systems General General Remarks Unobtainable. Objective Data Data Vital Signs Date Time Temp Pulse Resp B/P (MAP) Pulse Ox O2 Delivery O2 Flow Rate FiO2 03/18/17 16:13 97 40 03/18/17 16:00 40 03/18/17 16:00 84 03/18/17 14:00 87 03/18/17 13:55 88 103/56 03/18/17 12:07 98 40 03/18/17 12:00 92 03/18/17 12:00 50 03/18/17 10:00 95 03/18/17 08:44 100 50 03/18/17 08:00 50 03/18/17 08:00 95 03/18/17 07:00 98 Mechanical Ventilator 50 03/18/17 04:30 102 123/63 03/18/17 04:00 97.9 100 22 111/63 (79) 96 118/60 (79) 03/18/17 04:00 50 03/18/17 03:55 96 50 03/18/17 03:54 102 119/63 03/18/17 02:02 107 109/57 03/18/17 01:14 97 50 03/18/17 00:00 99.3 109 22 109/65 (80) 96 111/57 (75) 03/18/17 00:00 50 03/17/17 21:52 111 109/55 03/17/17 21:03 98 50 03/17/17 20:13 109 82/43 03/17/17 20:00 97.2 109 23 98/55 (69) 82/42 (55) Automatic Cuff 03/17/17 20:00 50 03/17/17 19:32 Mechanical Ventilator 4.00 50 03/17/17 19:30 115 90/46 03/17/17 19:30 115 90/45 03/17/17 18:00 117 -: 03/18/17 0530 03/18/17 0530 Tubes & Lines: Ruth Medication Review Inpatient Medications Albumin Human 100 ml @ 60 mls/hr Q6H IV Last administered on 03/17/17 18:35 ; Start 03/17/17 at 00:00; Stop 03/17/17 at 19:39; Status DC Albuterol/ Ipratropium (Duoneb Neb) 1 ampule Q2HR NEB PRN NEB WHEEZING; Start 03/17/17 at 00:15 Cefazolin Sodium 1000 mg/Sodium Chloride 100 ml @ 100 mls/hr Q12H IV Last administered on 03/18/17 15:38; Start 03/18/17 at 16:00 Cefazolin Sodium/ Dextrose 50 ml @ 100 mls/hr Q8H IV Last administered on 04:29; Start 03/17/17 at 14:00; Stop 03/18/17 at 08:38; Status DC Chlorhexidine Gluconate (Chlorhexidine 2% Cloth) 3 pack UNSCH PRN TOP HYGIENIC CARE; Start 03/16/17 at 23:30 Epinephrine HCl 2 mg/Dextrose 252 ml @ 45.36 mls/ hr TITRATE PRN IV Blood Pressure Management Last administered on 03/18/17 02:02; Start 03/17/17 at 14 :00; Stop 03/18/17 at 12:30; Status DC Etomidate (Amidate Inj) 20 mg STAT STAT IV PUSH Last administered on 05:15; Start 03/17/17 at 05:05; Stop 03/17/17 at 05:06; Status DC Fentanyl Citrate (fentaNYL INJ) 200 mcg STAT STAT IV Last administered on 05:15; Start 03/17/17 at 05:04; Stop 03/17/17 at 05:06; Status DC Hydrocortisone Sodium Succinate (SoluCORTEF INJ) 25 mg Q6H IV PUSH ; Start at 18:00 Levetriacetam 500 mg/Sodium Chloride 105 ml @ 420 mls/hr Q12H IV Last administered on 03/18/17 14:11; Start 03/17/17 at 02:00 Midazolam HCl (Versed Inj) 4 mg STAT STAT IV Last administered on 03/17/17 05:15; Start 03/17/17 at 05:05; Stop 03/17/17 at 05:06; Status DC Miscellaneous Information 1 Q361D XX ; Start 03/16/17 at 23:30 Morphine Sulfate (Morphine Inj) 4 mg ONCE ONCE IV PUSH Last administered on 22:32; Start 03/16/17 at 22:15; Stop 03/16/17 at 22:16; Status DC Mupirocin (Bactroban Nasal 2% Oint) 1 applic BID NASAL Last administered on 09:00; Start 03/17/17 at 21:00 Norepinephrine Bitartrate 4 mg/ Sodium Chloride 250 ml @ 7.5 mls/hr TITRATE PRN IV Blood pressure management; Start 03/18/17 at 12:30 Octreotide Acetate 500 mcg/ Sodium Chloride 500 ml @ 50 mls/hr Q10H IV Last administered on 03/17/17 21:53; Start 03/17/17 at 11:58; Stop 03/22/17 at 11 :57 Octreotide Acetate (SandoSTATIN INJ) 50 mcg ONCE ONCE IV PUSH Last administered on 03/17/17 12:39; Start 03/17/17 at 11:30; Stop 03/17/17 at 11 :31; Status DC Ondansetron HCl (Zofran Inj) 4 mg ONCE ONCE IV PUSH Last administered on 03/16 22:32; Start 03/16/17 at 22:15; Stop 03/16/17 at 22:16; Status DC Pantoprazole Sodium (Protonix Inj) 40 mg BID IV PUSH Last administered on 03/18 08:48; Start 03/17/17 at 00:03 Pantoprazole Sodium 80 mg/ Sodium Chloride 100 ml @ 10 mls/hr CONTINUOUS IV Last administered on 03/18/17 04:30; Start 03/17/17 at 11:00; Stop 03/18/17 at 12:30; Status DC Pharmacy Profile Note 0 ml @ 0 mls/hr UNSCH OTHER ; Start 03/17/17 at 14:00 Piperacillin Sod/ Tazobactam Sod 50 ml @ 100 mls/hr Q8H IV ; Start 03/18/17 at 18:00 Sodium Bicarbonate 150 meq/Dextrose 1,150 ml @ 100 mls/hr [id number] IV Last administered on 03/18/17 11:54; Start 03/17/17 at 01:30 Sodium Chloride 1,000 ml @ 999 mls/hr BOLUS ONCE IV Last administered on 15:28; Start 03/17/17 at 15:15; Stop 03/17/17 at 16:15; Status DC Sodium Chloride (NS Flush) 2 ml BID IV FLUSH ; Start 03/17/17 at 11:00; Stop 03/17/17 at 12:39; Status DC Succinylcholine Chloride (Quelicin Inj) 50 mg STAT STAT IV PUSH Last administered on 03/17/17 05:16; Start 03/17/17 at 05:06; Stop 03/17/17 at 05 :07; Status DC Terbutaline Sulfate (Brethine Inj) 1 mg UNSCH PRN SQ For Extravasation; Start 03/17/17 at 04:45 Vancomycin HCl 1000 mg/Sodium Chloride 250 ml @ 250 mls/hr ONCE ONCE IV Last administered on 03/17/17 16:39; Start 03/17/17 at 16:00; Stop 03/17/17 at 16 :59; Status DC Vasopressin 40 units/Dextrose 100 ml @ 6 mls/hr [id number] IV ; Start 03/18/17 at 14:00 Physical Exam General Appearance: No Acute Distress Neck Neck Exam: Trachea Midline Pulmonary Resp Exam: Breath Sounds Equal, No Distress, Rhonchi Cardiology CV Exam: Regular, Normal Sinus Rhythm Gastrointestinal/Abdomen GI Exam: Non-Tender, Distended Integumentary Skin Exam: Warm, Dry, Jaundice Extremeties Extremities Exam: Moderate Edema (lower and upper extremities and dependent torso.) Neurologic Neuro Exam: Sedated Assessment/Plan Problem List: (1) Acute renal failure (ARF) ICD Codes: N17.9 - Acute kidney failure, unspecified Plan: Azotemia continues to worsen which is not surprising given the patient's critical condition with sepsis and a history of cirrhosis. Ruth catheter was flushed by urology remains be determined however whether or not his urine output will improve. We'll give 1 dose of bumetanide. Acid base status improved with bicarbonate drip. No indication for acute dialysis at this time today however if azotemia continues to deteriorate will consider renal replacement therapy within the next 24-48 hours. Uncertain however if dialytic intervention will alter the patient's probable poor prognosis. We will follow with labs tomorrow and further management to follow clinical status. Medications should be adjusted for the patient's renal decline. Avoid gadolinium. (2) Severe sepsis ICD Codes: A41.9 - Sepsis, unspecified organism; R65.20 - Severe sepsis without septic shock Status: Acute Plan: Staph infection. Consideration for parenteral drug abuse given organism and presence of opioids on presentation on toxicology screen. (3) Cirrhosis ICD Codes: K74.60 - Unspecified cirrhosis of liver Status: Acute Plan: GI on case (4) Pancytopenia, acquired ICD Codes: D61.818 - Other pancytopenia Status: Acute (5) Intracranial bleed ICD Codes: I62.9 - Nontraumatic intracranial hemorrhage, unspecified Status: Acute Plan: Minimal subarachnoid bleed per the CT scan. Problem Qualifiers (1) Cirrhosis: Qualified Codes: K70.31 - Alcoholic cirrhosis of liver with ascites Kaykay Pimentel MD Mar 18, 2017 17:06
[2017-03-18] MEDS ORDERED: BUMETANIDE INJ 1 MG/4 ML VIAL IV PUSH ONE (17:30)
[2017-03-18] MEDS: PIPERACIL-TAZO 2.25 GM PREMIX 50 ML IV SCH (17:52)
[2017-03-19] VITALS (12 sets, daily range): BP systolic 110–121; BP diastolic 63–81; PULSE 75–90; RESP 17–22; TEMP 97.7–99.9; O2SAT 0–98
[2017-03-19] MEDS: RESP: ALBUTEROL 2.5 MG/IPRATROPIUM 0.5 MG NEB (SCH) INH ×3 (01:36→15:15)
[2017-03-19] MEDS: PIPERACIL-TAZO 2.25 GM PREMIX 50 ML IV SCH ×2 (01:39→08:21)
[2017-03-19] MEDS: levETIRAcetam INJ 500 MG in SODIUM CHLORIDE 0.9% INJ 100 ML IV SCH ×2 (01:40→13:12)
[2017-03-19] MEDS: CHLORHEXIDINE GLUCONATE 2 % 1 PACK (2 CLOTHS) TOP SCH (04:00)
[2017-03-19] MEDS: fentaNYL DRIP 250 ML IV PRN (04:39)
[2017-03-19] MEDS: OCTREOTIDE INJ 500 MCG in SODIUM CHLORID 0.9% 500 ML INJ 499.5 ML IV SCH (04:39)
[2017-03-19] MEDS: HYDROCORTISONE SOD SUCCINATE 100 MG VIAL IV PUSH SCH (04:40)
[2017-03-19 06:57] LABS: HEMATOCRIT 25.5 % (39.0-51.0); MEAN CELL VOLUME 97.2 FL (80.0-100.0); MEAN CORPUSCULAR HEMOGLOBIN 33.3 PG (27.0-34.0); MEAN CORPUSCULAR HGB CONC 34.3 % (32.0-36.0); RED BLOOD COUNT 2.62 MIL/MM3 (4.50-5.90); RED CELL DISTRIBUTION WIDTH 20.5 % (11.6-17.2); WHITE BLOOD COUNT 28.1 TH/MM3 (4.0-11.0)
[2017-03-19 07:04] LABS: HEMO FLAGS AUTO DIFF
[2017-03-19 07:05] LABS: INTERNATIONAL NORMALIZED RATIO 2.4 RATIO; PROTHROMBIN TIME - PATIENT 27.5 SEC (9.8-11.6)
[2017-03-19 07:06] LABS: PLATELET COUNT 14 TH/MM3 (150-450)
[2017-03-19 07:28] LABS: BICARBONATE 22.3 MEQ/L (21.0-32.0)
[2017-03-19 07:50] LABS: CALCIUM-PROTEIN CORRECTED 6.8 MG/DL (8.5-10.1)
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
[2017-03-19] MEDS: SODIUM CHLORIDE 0.9% FLUSH 10 ML FLUSH IV FLUSH SCH (08:21)
[2017-03-19] MEDS: PANTOPRAZOLE SODIUM 40 MG VIAL IV PUSH SCH (08:21)
[2017-03-19] MEDS: MUPIROCIN 2% OINT 1 APPLIC/GM SYR NASAL SCH (08:21)
--- NOTE | 2017-03-19 09:53 | PD.CARD.PN ---
Subjective Subjective Remarks intubated, sedated Objective Medications Current Medications Medications (Trade) Dose Ordered Sig/Kayleen Route Start Time Stop Time Status Last Admin (NS Flush) 2 ml UNSCH PRN IV FLUSH 03/16/17 23:30 (NS Flush) 2 ml BID IV FLUSH 03/17/17 09:00 03/19/17 08:21 (Protonix Inj) 40 mg BID IV PUSH 03/17/17 00:03 03/19/17 08:21 (Duoneb Neb) 1 ampule Q6HR NEB INH 03/17/17 04:00 03/19/17 08:57 (Duoneb Neb) 1 ampule Q2HR NEB PRN NEB 03/17/17 00:15 Miscellaneous Information 1 Q361D XX 03/16/17 23:30 (Chlorhexidine 2% Cloth) 3 pack Taper DAILY@04 TOP 03/17/17 04:00 03/13/18 03:59 03/19/17 04:00 (Chlorhexidine 2% Cloth) 3 pack UNSCH PRN TOP 03/16/17 23:30 Levetriacetam 500 mg/Sodium Chloride 105 ml @ 420 mls/hr Q12H IV 03/17/17 02:00 03/19/17 01:40 Midazolam HCl 100 ml @ 2 mls/hr TITRATE PRN IV 03/17/17 04:45 03/17/17 05:17 Fentanyl Citrate 250 ml @ 5 mls/hr TITRATE PRN IV 03/17/17 04:45 03/19/17 04:39 (Brethine Inj) 1 mg UNSCH PRN SQ 03/17/17 04:45 Pharmacy Profile Note 0 ml @ 0 mls/hr UNSCH OTHER 03/17/17 14:00 (Bactroban Nasal 2% Oint) 1 applic BID NASAL 03/17/17 21:00 03/19/17 08:21 Cefazolin Sodium 1000 mg/Sodium Chloride 100 ml @ 100 mls/hr Q12H IV 03/18/17 16:00 03/19/17 04:26 Norepinephrine Bitartrate 4 mg/ Sodium Chloride 250 ml @ 7.5 mls/hr TITRATE PRN IV 03/18/17 12:30 Piperacillin Sod/ Tazobactam Sod 50 ml @ 100 mls/hr Q8H IV 03/18/17 18:00 03/19/17 08:21 Vasopressin 40 units/Dextrose 100 ml @ 6 mls/hr [id number] IV 03/18/17 14:00 03/18/17 20:04 Vital Signs / I&O Vital Signs Date Time Temp Pulse Resp B/P (MAP) Pulse Ox O2 Delivery O2 Flow Rate FiO2 03/19/17 09:09 97.7 82 22 121/81 96 03/19/17 08:58 97 40 03/19/17 08:00 40 03/19/17 08:00 98.5 78 17 119/73 (88) 98 111/67 (82) 03/19/17 08:00 83 03/19/17 07:00 95 Mechanical Ventilator 40 03/19/17 04:22 97 40 03/19/17 04:00 40 03/19/17 04:00 98.4 88 22 116/64 (81) 98 110/65 (80) 03/19/17 01:34 95 40 03/19/17 00:00 40 03/19/17 00:00 99.9 90 22 113/71 (85) 96 110/63 (79) 03/18/17 22:40 89 113/63 03/18/17 20:04 88 104/59 03/18/17 20:00 98.1 88 22 105/66 (79) 95 104/59 (74) 03/18/17 20:00 40 03/18/17 19:57 94 40 03/18/17 19:27 Mechanical Ventilator 40 03/18/17 18:00 86 03/18/17 16:13 97 40 03/18/17 16:00 40 03/18/17 16:00 84 03/18/17 14:00 87 03/18/17 13:55 88 103/56 03/18/17 12:07 98 40 03/18/17 12:00 92 03/18/17 12:00 50 03/18/17 10:00 95 I/O 03/18/17 03/18/17 03/18/17 03/19/17 03/19/17 03/19/17 07:00 15:00 23:00 07:00 15:00 23:00 Intake Total 3435 ml 1100 ml 2970 ml 287 ml Output Total 500 ml 220 ml 101 ml Balance 2935 ml 880 ml 2869 ml 287 ml Intake IV Total 3435 ml 1100 ml 2970 ml Platelets 287 ml Output Urine Total 300 ml 20 ml 100 ml Stool Total 1 ml Gastric Drainage Total 200 ml 200 ml 0 ml # Bowel Movements 0 0 Laboratory GENERAL: SKIN: Warm and dry. HEAD: Normocephalic. EYES: No scleral icterus. No injection or drainage. NECK: Supple, trachea midline. No JVD or lymphadenopathy. CARDIOVASCULAR: Regular rate and rhythm without murmurs, gallops, or rubs. RESPIRATORY: Breath sounds equal bilaterally. No accessory muscle use. GASTROINTESTINAL: Abdomen soft, non-tender, nondistended. MUSCULOSKELETAL: No cyanosis, or edema. BACK: Nontender without obvious deformity. No CVA tenderness. Laboratory Tests Test 03/19/17 06:25 White Blood Count 28.1 TH/MM3 Red Blood Count 2.62 MIL/MM3 Hemoglobin 8.7 GM/DL Hematocrit 25.5 % Mean Corpuscular Volume 97.2 FL Mean Corpuscular Hemoglobin 33.3 PG Mean Corpuscular Hemoglobin Concent 34.3 % Red Cell Distribution Width 20.5 % Platelet Count 14 TH/MM3 Mean Platelet Volume 10.4 FL CBC Comment AUTO DIFF Prothrombin Time 27.5 SEC Prothromb Time International Ratio 2.4 RATIO Blood Urea Nitrogen 87 MG/DL Creatinine 5.32 MG/DL Random Glucose 255 MG/DL Total Protein 5.7 GM/DL Calcium Level 6.2 MG/DL Sodium Level 130 MEQ/L Potassium Level 4.0 MEQ/L Chloride Level 92 MEQ/L Carbon Dioxide Level 22.3 MEQ/L Anion Gap 16 MEQ/L Estimat Glomerular Filtration Rate 11 ML/MIN Protein Corrected Calcium 6.8 MG/DL Random Vancomycin Level 15.5 COMMENT Assessment and Plan Problem List: (1) NSTEMI (non-ST elevated myocardial infarction) ICD Codes: I21.4 - Non-ST elevation (NSTEMI) myocardial infarction (2) Portal hypertension ICD Codes: K76.6 - Portal hypertension; R65.20 - Severe sepsis without septic shock Status: Acute (3) Cirrhosis ICD Codes: K74.60 - Unspecified cirrhosis of liver Status: Acute (4) DIC (disseminated intravascular coagulation) ICD Codes: D65 - Disseminated intravascular coagulation [defibrination syndrome ] Status: Acute (5) Severe sepsis ICD Codes: A41.9 - Sepsis, unspecified organism; R65.20 - Severe sepsis without septic shock Status: Acute (6) Intracranial bleed ICD Codes: I62.9 - Nontraumatic intracranial hemorrhage, unspecified Status: Acute (7) Dyspnea and respiratory abnormalities ICD Codes: R06.00 - Dyspnea, unspecified; R06.89 - Other abnormalities of breathing (8) Coagulopathy ICD Codes: D68.9 - Coagulation defect, unspecified Status: Acute (9) Hyperammonemia ICD Codes: E72.20 - Disorder of urea cycle metabolism, unspecified Status: Acute (10) GI bleed ICD Codes: K92.2 - Gastrointestinal hemorrhage, unspecified Status: Acute (11) Transaminitis ICD Codes: R74.0 - Nonspecific elevation of levels of transaminase and lactic acid dehydrogenase [LDH] Status: Acute (12) Pancytopenia, acquired ICD Codes: D61.818 - Other pancytopenia Status: Acute (13) Acute renal failure (ARF) ICD Codes: N17.9 - Acute kidney failure, unspecified Assessment and Plan 1.) NSTEMI - rx options limited, due to coagulopathy, ich, sepsis, arf, thrombocytopenia and anemia Problem Qualifiers (1) Cirrhosis: Qualified Codes: K70.31 - Alcoholic cirrhosis of liver with ascites Reggie Goldman MD Mar 19, 2017 09:53
[2017-03-19 10:10] LABS: BANDS 12 % (0-6); METAMYELOCYTES 1 % (0-1); NEUTROPHIL # MANUAL DIFF 24.4 TH/MM3 (1.8-7.7); PLATELET ESTIMATE SMEAR RARE (NORMAL); PLATELET MORPHOLOGY NORMAL (NORMAL); POLYS (SEG NEUTROPHILS) 74 % (16-70); SCAN/DIFF FINAL DIFF MANUAL; WBC DIFF SAMPLE 100
--- NOTE | 2017-03-19 11:34 | HHI.NPPN ---
Subjective History of Present Illness he patient is a 51 yo [place] male who presented to this facility on 03/16 with complaints of generalized weakness and pain. Was seen in the ED on 03/13 with similar complaint and was discharged on Doxycycline. He is an alcoholic and according to records either passed out or had syncopal event on 03/16 prompting his return. He is currently intubated and sedated so all information is obtained from previous records and mother who is present at bedside. She is unaware of any underlying kidney disease prior to his admission. He had positive BCx on 03/13 for MSSA and repeat BCx 03/16 positive for GPC. Septic shock requiring inotropes for maintenance of BP. UOP has been nominal at best since admission. Underwent emergent EGD as he had coffee ground emesis and blood on mouth. Started Octreotide today. Admitting SCr at 3.84 that improved slightly to 3.72 at consultation. SCr on was 0.63 Interval History Patient still intubated on the ventilator. Still on pressor support. Review of Systems General General Remarks Unobtainable. Objective Data Data 03/19/17 03/20/17 19:00 07:00 Intake Total 287 ml Balance 287 ml Platelets 287 ml Vital Signs Date Time Temp Pulse Resp B/P (MAP) Pulse Ox O2 Delivery O2 Flow Rate FiO2 03/19/17 10:00 83 03/19/17 09:09 97.7 82 22 121/81 96 03/19/17 08:58 97 40 03/19/17 08:00 40 03/19/17 08:00 98.5 78 17 119/73 (88) 98 111/67 (82) 03/19/17 08:00 83 03/19/17 07:00 95 Mechanical Ventilator 40 03/19/17 04:22 97 40 03/19/17 04:00 40 03/19/17 04:00 98.4 88 22 116/64 (81) 98 110/65 (80) 03/19/17 01:34 95 40 03/19/17 00:00 40 03/19/17 00:00 99.9 90 22 113/71 (85) 96 110/63 (79) 03/18/17 22:40 89 113/63 03/18/17 20:04 88 104/59 03/18/17 20:00 98.1 88 22 105/66 (79) 95 104/59 (74) 03/18/17 20:00 40 03/18/17 19:57 94 40 03/18/17 19:27 Mechanical Ventilator 40 03/18/17 18:00 86 03/18/17 16:13 97 40 03/18/17 16:00 40 03/18/17 16:00 84 03/18/17 14:00 87 03/18/17 13:55 88 103/56 03/18/17 12:07 98 40 03/18/17 12:00 92 03/18/17 12:00 50 -: 03/19/17 0625 03/19/17 0625 Microbiology 03/19/17 Aerobic Blood Culture, Received Pending 03/19/17 Anaerobic Blood Culture, Received Pending Tubes & Lines: Ruth Physical Exam General Appearance: No Acute Distress Neck Neck Exam: Trachea Midline Pulmonary Resp Exam: Breath Sounds Equal, No Distress, Rhonchi Cardiology CV Exam: Regular, Normal Sinus Rhythm Gastrointestinal/Abdomen GI Exam: Non-Tender, Distended Integumentary Skin Exam: Warm, Dry, Jaundice Extremeties Extremities Exam: Moderate Edema (lower and upper extremities and dependent torso.) Neurologic Neuro Exam: Sedated Assessment/Plan Problem List: (1) Acute renal failure (ARF) ICD Codes: N17.9 - Acute kidney failure, unspecified Plan: Azotemia continues to worsen which is not surprising given the patient's critical condition with sepsis and a history of cirrhosis. At this point in time critical care will be discussing with patient's next of kin regarding aggressiveness of care in the setting of multiple comorbidities and cirrhosis. If family wishes to continue with aggressive medical care dialysis will be indicated at this point in time. Uncertain however if dialytic intervention will alter the patient's probable poor prognosis. ICU nurse will contact me regarding decision of family. If family wishes to continue aggressive care will need placement of a Vas-Cath today and subsequent dialysis. Medications should be adjusted for the patient's renal decline. Avoid gadolinium. (2) Severe sepsis ICD Codes: A41.9 - Sepsis, unspecified organism; R65.20 - Severe sepsis without septic shock Status: Acute Plan: Staph infection. Consideration for parenteral drug abuse given organism and presence of opioids on presentation on toxicology screen. (3) Cirrhosis ICD Codes: K74.60 - Unspecified cirrhosis of liver Status: Acute Plan: GI on case (4) Pancytopenia, acquired ICD Codes: D61.818 - Other pancytopenia Status: Acute (5) Intracranial bleed ICD Codes: I62.9 - Nontraumatic intracranial hemorrhage, unspecified Status: Acute Plan: Minimal subarachnoid bleed per the CT scan. Problem Qualifiers (1) Cirrhosis: Qualified Codes: K70.31 - Alcoholic cirrhosis of liver with ascites Kaykay Pimentel MD Mar 19, 2017 11:34
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
[2017-03-19] MEDS ORDERED: fentaNYL DRIP 250 ML IV PRN (12:15)
--- NOTE | 2017-03-19 12:37 | HHI.PR ---
Subjective Subjective Notes intubated, remains on pressors Objective Vitals/I&O Vital Signs Date Time Temp Pulse Resp B/P (MAP) Pulse Ox O2 Delivery O2 Flow Rate FiO2 03/19/17 12:00 97 40 03/19/17 10:00 83 03/19/17 09:09 97.7 22 121/81 03/19/17 07:00 Mechanical Ventilator 03/17/17 19:32 4.00 Labs Laboratory Tests Test 03/19/17 06:25 White Blood Count 28.1 Red Blood Count 2.62 Hemoglobin 8.7 Hematocrit 25.5 Mean Corpuscular Volume 97.2 Mean Corpuscular Hemoglobin 33.3 Mean Corpuscular Hemoglobin Concent 34.3 Red Cell Distribution Width 20.5 Platelet Count 14 Mean Platelet Volume 10.4 CBC Comment AUTO DIFF Differential Total Cells Counted 100 Neutrophils % (Manual) 74 Band Neutrophils % 12 Lymphocytes % 4 Monocytes % 9 Neutrophils # (Manual) 24.4 Metamyelocytes 1 Differential Comment FINAL DIFF MANUAL Platelet Estimate RARE Platelet Morphology Comment NORMAL Prothrombin Time 27.5 Prothromb Time International Ratio 2.4 Blood Urea Nitrogen 87 Creatinine 5.32 Random Glucose 255 Total Protein 5.7 Calcium Level 6.2 Sodium Level 130 Potassium Level 4.0 Chloride Level 92 Carbon Dioxide Level 22.3 Anion Gap 16 Estimat Glomerular Filtration Rate 11 Protein Corrected Calcium 6.8 Random Vancomycin Level 15.5 Date/Time Source Procedure Growth Status 03/19/17 11:13 Blood Peripheral Aerobic Blood Culture Pending Received 03/19/17 11:13 Blood Peripheral Anaerobic Blood Culture Pending Received 03/17/17 06:45 Sputum Endotracheal Gram Stain - Final Resulted 03/17/17 06:45 Sputum Culture - Preliminary S. Aureus Mrsa Resulted 03/17/17 05:12 Urine Catheterized Urine Urine Culture - Final NO GROWTH IN 48 HOURS. Complete Lungs: Other (coarse bs) Abdomen: Other (soft mild distension ) A/P Assessment and Plan hepatic failure, shock- slowly weaning pressors- remains critical poor prognosis PLAN empiric abx, resuscitation, correct metabolic derangement wean vent and sedation as tolerated per [facility] urology, nephro, gi following, cardio following Will continue to follow, non operative mgnt observe gallbladder for now, observe abdomen with abdominal exams Zeeshan Quinteros MD Mar 19, 2017 12:37
[2017-03-19] MEDS: MIDAZOLAM 100 MG/100 ML INJ 100 ML IV PRN (13:52)
--- NOTE | 2017-03-19 13:52 | OTSOAPIP ---
LATE ENTRY FOR 03/18/17 11 AM NURSE REQUESTS TO HOLD DUE TO VITALS Therapist: Yaneth Arango OTR/L Signature on file
--- NOTE | 2017-03-19 14:57 | HHI.GIFU ---
Subjective Remarks Pt sedated on vent. NGT clamped, small amount of coffee ground secretions noted in tubing. No active bleeding. Nurse reports that he is now comfort measures. Objective Vitals I&O Vital Signs Date Time Temp Pulse Resp B/P (MAP) Pulse Ox O2 Delivery O2 Flow Rate FiO2 03/19/17 14:00 77 03/19/17 12:00 78 03/19/17 12:00 40 03/19/17 12:00 97 40 03/19/17 10:00 83 03/19/17 09:09 97.7 82 22 121/81 96 03/19/17 08:58 97 40 03/19/17 08:00 40 03/19/17 08:00 98.5 78 17 119/73 (88) 98 111/67 (82) 03/19/17 08:00 83 03/19/17 07:00 95 Mechanical Ventilator 40 03/19/17 04:22 97 40 03/19/17 04:00 40 03/19/17 04:00 98.4 88 22 116/64 (81) 98 110/65 (80) 03/19/17 01:34 95 40 03/19/17 00:00 40 03/19/17 00:00 99.9 90 22 113/71 (85) 96 110/63 (79) 03/18/17 22:40 89 113/63 03/18/17 20:04 88 104/59 03/18/17 20:00 98.1 88 22 105/66 (79) 95 104/59 (74) 03/18/17 20:00 40 03/18/17 19:57 94 40 03/18/17 19:27 Mechanical Ventilator 40 03/18/17 18:00 86 03/18/17 16:13 97 40 03/18/17 16:00 40 03/18/17 16:00 84 I/O 03/18/17 03/18/17 03/18/17 03/19/17 03/19/17 03/19/17 07:00 15:00 23:00 07:00 15:00 23:00 Intake Total 3435 ml 1100 ml 2970 ml 287 ml Output Total 500 ml 220 ml 101 ml Balance 2935 ml 880 ml 2869 ml 287 ml Intake IV Total 3435 ml 1100 ml 2970 ml Platelets 287 ml Output Urine Total 300 ml 20 ml 100 ml Stool Total 1 ml Gastric Drainage Total 200 ml 200 ml 0 ml # Bowel Movements 0 0 Laboratory Laboratory Tests Test 03/19/17 06:25 White Blood Count 28.1 Red Blood Count 2.62 Hemoglobin 8.7 Hematocrit 25.5 Mean Corpuscular Volume 97.2 Mean Corpuscular Hemoglobin 33.3 Mean Corpuscular Hemoglobin Concent 34.3 Red Cell Distribution Width 20.5 Platelet Count 14 Mean Platelet Volume 10.4 CBC Comment AUTO DIFF Differential Total Cells Counted 100 Neutrophils % (Manual) 74 Band Neutrophils % 12 Lymphocytes % 4 Monocytes % 9 Neutrophils # (Manual) 24.4 Metamyelocytes 1 Differential Comment FINAL DIFF MANUAL Platelet Estimate RARE Platelet Morphology Comment NORMAL Prothrombin Time 27.5 Prothromb Time International Ratio 2.4 Blood Urea Nitrogen 87 Creatinine 5.32 Random Glucose 255 Total Protein 5.7 Calcium Level 6.2 Sodium Level 130 Potassium Level 4.0 Chloride Level 92 Carbon Dioxide Level 22.3 Anion Gap 16 Estimat Glomerular Filtration Rate 11 Protein Corrected Calcium 6.8 Random Vancomycin Level 15.5 Date/Time Source Procedure Growth Status 03/19/17 11:13 Blood Peripheral Aerobic Blood Culture Pending Received 03/19/17 11:13 Blood Peripheral Anaerobic Blood Culture Pending Received 03/17/17 06:45 Sputum Endotracheal Gram Stain - Final Resulted 03/17/17 06:45 Sputum Culture - Preliminary S. Aureus Mrsa Resulted 03/17/17 05:12 Urine Catheterized Urine Urine Culture - Final NO GROWTH IN 48 HOURS. Complete Imaging Last Impressions Chest X-Ray 03/18/17 0600 Signed Impressions: Service Date/Time: February 05:34 - CONCLUSION: Bibasilar densities slightly worse in the left lower lobe. Possible kink in left jugular central line. Eran Agustin MD Ankle X-Ray 03/17/17 0000 Signed Impressions: Service Date/Time: Friday, March 17, 2017 16:58 - CONCLUSION: Lateral ankle soft tissue swelling. No acute findings in the osseous structures. Epifanio Bravo MD Head CT 03/16/17 0000 Signed Impressions: Service Date/Time: Thursday, March 16, 2017 22:50 - CONCLUSION: 1. Minimal contusion high right parietal convexity. 2. Minimal subarachnoid hemorrhage. Eran Agustin MD Chest CT 03/16/17 0000 Signed Impressions: Service Date/Time: Thursday, March 16, 2017 22:54 - CONCLUSION: 1. Minimal scarring in the lower lobes. 2. No consolidation or mass. Eran Agustin MD Abdomen/Pelvis CT 03/16/17 0000 Signed Impressions: Service Date/Time: Thursday, March 16, 2017 22:54 - CONCLUSION: 1. Cholelithiasis. 2. Liver is slightly nodular but could be early morphologic changes of cirrhosis. Minimal ascites. 3. Small fat-containing right inguinal hernia. 4. Splenomegaly. Eran Agustin MD Physical Exam HEENT: Normocephalic; atraumatic; no jaundice. CHEST: Resp. even, OETT to mechanical ventilator. Diminished bases/more on left. CARDIAC: RRR. On vasopressors ABDOMEN: Soft, distended, bowel sounds are present in all four quadrants. OGT clamped EXTREMITIES: Generalized edema. COP WINDER: Sedated on vent. Assessment and Plan Plan ASSESSMENT: - Upper GIB. Pt with known hx of liver cirrhosis, portal gastropathy, and recurrent/persistent gastric ulcer. EGD/Colonoscopy (04/29/15)---> gastric ulcers, duodenitis, esophagitis, colon polyps. It was recommended that he have a repeat EGD/Colonoscopy in 6-8 weeks. He then had an EGD in February of 2016 at [facility], which showed a gastric antral ulcer (pathology reactive gastropathy, negative for helicobacter-like bacteria), hiatal hernia (small), gastritis, portal gastropathy. EGD for anemia, hematemesis (04/30/16 )----> esophagitis, gastric ulcers, gastritis. Outpatient colonoscopy was recommended. S/p EGD (03/17/17)----> EGD performed no bleeding seen. No ulcer seen, no fresh or clotted blood. No varices appreciated. Plan was for repeat EGD today, but his hh has remained stable, he has severe thrombocytopenia and his family has opted for comfort measures only. He is off of drips. - Anemia, acute blood loss. S/P 2 units PRBC. HH 8.9/26.5. - Thrombocytopenia, Coagulopathy, DIC r/t sepsis. S/P 4 units FFP, 3 units Plt, 1 unit cryoprecipitate. S/P 2 units PRBC, 4 units of FFP, 4 units platelets, 1 unit cryo. Plt 14, PT 27.5, INR 2.4 - Alcoholic hepatitis on underlying liver cirrhosis, elevated LFTs. CT scan abdomen and pelvis without IV contrast (03/16/17)----> cholelithiasis, liver is slightly nodular but could be morphologic changes of cirrhosis, minimal ascites, small fat containing right inguinal hernia, splenomegaly. - Ascites, mild. - Respiratory failure. Vent per CCM. - Sepsis, Leukocytosis, Bacteremia, Lactic acidosis. BCx GPC (03/16/17), FLU A/ B ag negative. Urine cx pending. Ancef, zosyn, ID following. Unclear source, probable endocarditis, unclear source at this time. S/P GS evaluation, - ARF with multiple electrolyte abnormalities. Worsening renal funciton, family has opted for comfort measures only - NSTEMI. Per CCM - SAH. CT head appreciated minimal contusion high right parietal convexity, minimal subarachnoid hemorrhage. - Cholelithiasis. LFTs do not appear obstructive. He does have sepsis, bacteremia with GPC. S/P GS evaluation. ID following, Abx. - Hematuria. following - ETOH abuse. DT precautions per attending. - Hx persistent gastric ulcer. PLAN: - NPO - OGT clamped - Cont. Protonix BID - Family has opted for comfort measures only per nursing - Further recommendations to follow based on results of above - Pt seen and examined by Dr. Small and myself and this note is written on his behalf Harini Pierson Mar 19, 2017 14:57
--- NOTE | 2017-03-19 16:12 | HHI.HCPN ---
Reason for visit a. To assist with evaluation and management of symptoms including: Dyspnea, pain b. To assist medical decision maker(s) with: better understanding of current medical conditions; weighing benefits/burdens of medical treatment options; making medical treatment decisions. (Melba Sanz) Subjective/Interval History This is a 51-year-old male who was admitted with syncope, leg weakness and pain after being discharged from the hospital on the for similar complaints. ED evaluation was concerning for sepsis white blood cell count of 14.9 and lactic acid level of 8.3. Other laboratory abnormalities included an elevated INR of 2.4 and pro time of 27.8, suspicious for liver compromise in a patient with a significant history of alcohol abuse. Imaging showed a small subarachnoid hemorrhage, more concerning in the setting of his alcohol-induced coagulopathy. FFP and platelets were transfused and patient sent to the intensive care unit for monitoring. DIC was suspected. He remained in intensive care throughout his hospital course and continued to decline. In spite of maximum medical therapy there was no significant recovery. He remained critically ill with worsening renal failure, escalating acidosis requiring correction and coagulopathy requiring repeated transfusions of fresh frozen plasma. These findings were discussed with his daughter Cralos by Dr. Sanchez who has requested a DO NOT RESUSCITATE with comfort measures, as it was agreed by all involved in this case that he would likely not survive the disease process. . Family/friend interactions Per Dr. Sanchez's conversation with the patient's daughter, Carlos, DO NOT RESUSCITATE orders were entered and preparations were made for transition to comfort measures. Arrangements were made for his mother, who was hospitalized chest pain, to visit the patient prior to initiating comfort measures for her to be allowed time to say her goodbyes. She was also attended by her and 2 daughters. She was extremely distraught, requiring administration of an anxiolytic, Xanax, prior to her visit. During Dr. Sanchez' s conversation with Carlos, she requested withdrawal of the vent tube, however she did not have available to her a fax machine or printer with a scanner option. She did ask if the available family members here, particularly her aunts, were able to sign with her verbal permission, as witnessed by myself and the patient's nurse, Joya Dodge? This was discussed with the medical delivery driver, Dr. Mendoza, who felt that as the patient's mother, who would be the next decision-maker in the hierarchy per [place] statutes, was unable to sign due to medical illness and emotional distress requiring the administration of anxiolytic, and the patient's sisters, who would be the next level of the hierarchy per [place] statutes, were available and agreed with the decision, could sign the exhibits to withdrawal. (Melba Sanz) Advance Directives Living Will: Never completed Health Care Surrogate: Never completed Durable Power of Information Resources Manager: Never completed (Melba Sanz) Advance Directive Specifics Significant change in goals: Due to patient's continued clinical decline, it was the decision of the daughter , Carlos, the legal decision-maker, to change CODE STATUS to DO NOT RESUSCITATE , transition to comfort measures, with compassionate withdrawal of ventilator support. . (Melba Sanz) Objective Vital Signs Date Time Temp Pulse Resp B/P (MAP) Pulse Ox O2 Delivery O2 Flow Rate FiO2 03/19/17 14:00 77 03/19/17 12:00 78 03/19/17 12:00 40 03/19/17 12:00 97 40 03/19/17 10:00 83 03/19/17 09:09 97.7 82 22 121/81 96 03/19/17 08:58 97 40 03/19/17 08:00 40 03/19/17 08:00 98.5 78 17 119/73 (88) 98 111/67 (82) 03/19/17 08:00 83 03/19/17 07:00 95 Mechanical Ventilator 40 03/19/17 04:22 97 40 03/19/17 04:00 40 03/19/17 04:00 98.4 88 22 116/64 (81) 98 110/65 (80) 03/19/17 01:34 95 40 03/19/17 00:00 40 03/19/17 00:00 99.9 90 22 113/71 (85) 96 110/63 (79) 03/18/17 22:40 89 113/63 03/18/17 20:04 88 104/59 03/18/17 20:00 98.1 88 22 105/66 (79) 95 104/59 (74) 03/18/17 20:00 40 03/18/17 19:57 94 40 03/18/17 19:27 Mechanical Ventilator 40 03/18/17 18:00 86 03/18/17 16:13 97 40 03/18/17 16:00 40 03/18/17 16:00 84 Intake & Output 03/19/17 03/19/17 07:00 19:00 Intake Total 4070 ml 287 ml Output Total 101 ml Balance 3969 ml 287 ml Intake IV Total 4070 ml Platelets 287 ml Output Urine Total 100 ml Stool Total 1 ml Gastric Drainage Total 0 ml Physical Exam CONSTITUTIONAL/GENERAL: This is an adequately nourished patient, intubated, sedated. TUBES/LINES/DRAINS: Left central line, ETT, Ruth. SKIN: Warm and damp, mild jaundice. HEAD: Atraumatic. Normocephalic. ENT: Mouth shows dried blood in the oral cavity. CARDIOVASCULAR: Tachycardic rate, regular rhythm, 2/6 systolic ejection murmur heard best at the right sternal border, diminished pulses, 1-2+ generalized edema. RESPIRATORY/CHEST: Mechanically ventilated, scattered wheezes, coarse breath sounds. GASTROINTESTINAL: Abdomen distended, hypoactive bowel sounds, OG tube with dark brown drainage. GENITOURINARY: Without palpable bladder distension. Ruth catheter in place draining minimal amounts of rick hematuria. MUSCULOSKELETAL: Extremities without clubbing or cyanosis. No joint tenderness or effusion noted. No mottling or clubbing. NEUROLOGICAL: Sedated PSYCHIATRIC: Sedated . (Melba Sanz) Diagnostic Tests Laboratory Laboratory Tests Test 03/16/17 22:10 03/16/17 23:10 03/16/17 23:39 03/16/17 23:55 White Blood Count 14.9 TH/MM3 (4.0-11.0) Red Blood Count 3.13 MIL/MM3 (4.50-5.90) Hemoglobin 10.6 GM/DL (13.0-17.0) Hematocrit 31.7 % (39.0-51.0) Mean Corpuscular Volume 101.1 FL (80.0-100.0) Mean Corpuscular Hemoglobin 34.0 PG (27.0-34.0) Mean Corpuscular Hemoglobin Concent 33.6 % (32.0-36.0) Red Cell Distribution Width 20.1 % (11.6-17.2) Platelet Count 27 TH/MM3 (150-450) Mean Platelet Volume 10.6 FL (7.0-11.0) CBC Comment AUTO DIFF Differential Total Cells Counted 100 Neutrophils % (Manual) 52 % (16-70) Band Neutrophils % 34 % (0-6) Monocytes % 4 % (0-8) Neutrophils # (Manual) 14.3 TH/MM3 (1.8-7.7) Metamyelocytes 6 % (0-1) Myelocytes 3 % (0-0) Promyelocytes 1 % (0-0) Differential Comment FINAL DIFF MANUAL Toxic Granulation 2+ (NORMAL) Toxic Vacuolation PRESENT (NONE SEEN) Platelet Estimate LOW (NORMAL) Platelet Morphology Comment NORMAL (NORMAL) Ovalocytes 1+ (NORMAL) Acanthocytes OCC (NORMAL) Prothrombin Time 27.8 SEC (9.8-11.6) Prothromb Time International Ratio 2.4 RATIO Activated Partial Thromboplast Time 43.5 SEC (24.3-30.1) Fibrinogen 213 mg/dL (227-377) D-Dimer Quantitative (PE/DVT) GREATER THAN 35.20 MG/L FEU Blood Urea Nitrogen 64 MG/DL (7-18) Creatinine 3.84 MG/DL (0.60-1.30) Random Glucose 63 MG/DL (74-106) Total Protein 5.7 GM/DL (6.4-8.2) Albumin 1.8 GM/DL (3.4-5.0) Calcium Level 7.7 MG/DL (8.5-10.1) Magnesium Level 2.0 MG/DL (1.5-2.5) Alkaline Phosphatase 220 U/L (45-117) Aspartate Amino Transf (AST/SGOT) 184 U/L (15-37) Alanine Aminotransferase (ALT/SGPT) 45 U/L (12-78) Total Bilirubin 9.4 MG/DL (0.2-1.0) Sodium Level 128 MEQ/L (136-145) Potassium Level 4.5 MEQ/L (3.5-5.1) Chloride Level 94 MEQ/L (98-107) Carbon Dioxide Level 16.1 MEQ/L (21.0-32.0) Anion Gap 18 MEQ/L (5-15) Estimat Glomerular Filtration Rate 17 ML/MIN (>89) Lactic Acid Level 8.3 mmol/L (0.4-2.0) 7.5 mmol/L (0.4-2.0) Total Creatine Kinase 437 U/L (39-308) Creatine Kinase MB 18.6 NG/ML (0.5-3.6) Creatine Kinase MB % 4.3 % (0.0-4.0) Troponin I 3.91 NG/ML (0.02-0.05) Lipase 132 U/L (73-393) Ethyl Alcohol Level LESS THAN 3 MG/DL (0-5) Blood Gas Puncture Site RT PEDAL Blood Gas Patient Temperature 98.6 Blood Gas HCO3 17 mmol/L (22-26) Blood Gas Base Excess -8.6 mmol/L (-2-2) Blood Gas Oxygen Saturation 87 % (90-100) Arterial Blood pH 7.29 (7.380-7.420) Arterial Blood Partial Pressure CO2 36 mmHg (38-42) Arterial Blood Partial Pressure O2 62 mmHG (61-120) Arterial Blood Oxygen Content 12.3 Vol % (12.0-20.0) Arterial Blood Carboxyhemoglobin 1.4 % (0-4) Arterial Blood Methemoglobin 0.3 % (0-2) Blood Gas Hemoglobin 10.0 G/DL (12.0-16.0) Oxygen Delivery Device ROOM AIR Blood Gas Inspired Oxygen 21 % Ammonia 22 MCMOL/L (11-32) C-Reactive Protein 8.10 MG/DL (0.00-0.30) Test 03/17/17 00:10 03/17/17 04:10 03/17/17 04:14 03/17/17 05:12 Nasal Screen MRSA (PCR) MRSA DETECTED (NOT DETECT) Lactic Acid Level 8.0 mmol/L (0.4-2.0) White Blood Count 18.3 TH/MM3 (4.0-11.0) Red Blood Count 2.33 MIL/MM3 (4.50-5.90) Hemoglobin 8.0 GM/DL (13.0-17.0) Hematocrit 23.8 % (39.0-51.0) Mean Corpuscular Volume 101.8 FL (80.0-100.0) Mean Corpuscular Hemoglobin 34.3 PG (27.0-34.0) Mean Corpuscular Hemoglobin Concent 33.7 % (32.0-36.0) Red Cell Distribution Width 19.9 % (11.6-17.2) Platelet Count 37 TH/MM3 (150-450) Mean Platelet Volume 7.6 FL (7.0-11.0) CBC Comment AUTO DIFF Differential Total Cells Counted 100 Neutrophils % (Manual) 69 % (16-70) Band Neutrophils % 21 % (0-6) Lymphocytes % 2 % (9-44) Monocytes % 4 % (0-8) Neutrophils # (Manual) 17.2 TH/MM3 (1.8-7.7) Metamyelocytes 3 % (0-1) Promyelocytes 1 % (0-0) Differential Comment FINAL DIFF MANUAL Toxic Granulation 2+ (NORMAL) Toxic Vacuolation PRESENT (NONE SEEN) Dohle Bodies PRESENT (NONE SEEN) Platelet Estimate LOW (NORMAL) Platelet Morphology Comment NORMAL (NORMAL) Ovalocytes 1+ (NORMAL) Acanthocytes (NORMAL) Prothrombin Time 17.5 SEC (9.8-11.6) Prothromb Time International Ratio 1.6 RATIO Blood Urea Nitrogen 62 MG/DL (7-18) Creatinine 3.72 MG/DL (0.60-1.30) Random Glucose 57 MG/DL (74-106) Total Protein 6.0 GM/DL (6.4-8.2) Albumin 2.5 GM/DL (3.4-5.0) Calcium Level 7.2 MG/DL (8.5-10.1) Alkaline Phosphatase 157 U/L (45-117) Aspartate Amino Transf (AST/SGOT) 141 U/L (15-37) Alanine Aminotransferase (ALT/SGPT) 36 U/L (12-78) Total Bilirubin 8.4 MG/DL (0.2-1.0) Sodium Level 132 MEQ/L (136-145) Potassium Level 3.5 MEQ/L (3.5-5.1) Chloride Level 96 MEQ/L (98-107) Carbon Dioxide Level 17.9 MEQ/L (21.0-32.0) Anion Gap 18 MEQ/L (5-15) Estimat Glomerular Filtration Rate 17 ML/MIN (>89) Protein Corrected Calcium 7.8 MG/DL (8.5-10.1) Total Creatine Kinase 421 U/L (39-308) Creatine Kinase MB 23.0 NG/ML (0.5-3.6) Creatine Kinase MB % 5.5 % (0.0-4.0) Urine Color DARK-BROWN (YELLW/STRAW) Urine Turbidity CLOUDY (CLEAR) Urine pH 5.0 (5.0-8.5) Urine Specific [place] 1.024 (1.002-1.035) Urine Protein 30 mg/dL (NEG-TRACE) Urine Glucose (UA) TRACE mg/dL (NEG) Urine Ketones TRACE mg/dL (NEG) Urine Occult Blood MOD (NEG) Urine Nitrite NEG (NEG) Urine Bilirubin NEG (NEG) Urine Urobilinogen 4.0 MG/DL (LESS THAN Urine Leukocyte Esterase TRACE (NEG) Urine RBC 25 /hpf (0-3) Urine WBC 15 /hpf (0-5) Urine Squamous Epithelial Cells 1 /hpf (0-5) Urine Amorphous Sediment RARE Urine Bacteria OCC /hpf (NONE) Urine Hyaline Casts 38 /lpf (RARE) Urine Mucus FEW /lpf (OCC) Microscopic Urinalysis Comment CATH-CULTURE IND Urine Opiates Screen POS (NEG) Urine Barbiturates Screen NEG (NEG) Urine Amphetamines Screen NEG (NEG) Urine Benzodiazepines Screen NEG (NEG) Urine Cocaine Screen NEG (NEG) Urine Cannabinoids Screen NEG (NEG) Chlamydia trachomatis DNA (PCR) NOT DETECTED (NOT DETECT) Neisseria gonorrhoeae DNA (PCR) NOT DETECTED (NOT DETECT) Test 03/17/17 06:05 03/17/17 08:32 03/17/17 12:12 03/17/17 15:30 Blood Gas Puncture Site RT RADIAL ART LINE Blood Gas Patient Temperature 98.6 98.6 Blood Gas HCO3 19 mmol/L (22-26) 18 mmol/L (22-26) Blood Gas Base Excess -8.3 mmol/L (-2-2) -7.5 mmol/L (-2-2) Blood Gas Oxygen Saturation 98 % (90-100) 95 % (90-100) Arterial Blood pH 7.19 (7.380-7.420) 7.27 (7.380-7.420) Arterial Blood Partial Pressure CO2 51 mmHg (38-42) 41 mmHg (38-42) Arterial Blood Partial Pressure O2 309 mmHg (61-120) 102 mmHg (61-120) Arterial Blood Oxygen Content 12.0 Vol % (12.0-20.0) 10.8 Vol % (12.0-20.0) Arterial Blood Carboxyhemoglobin 1.1 % (0-4) 1.5 % (0-4) Arterial Blood Methemoglobin 0.9 % (0-2) 0.7 % (0-2) Blood Gas Hemoglobin 8.2 G/DL (12.0-16.0) 7.9 G/DL (12.0-16.0) Oxygen Delivery Device VENTILATOR VENTILATOR Blood Gas Ventilator Setting PRVC/AC Blood Gas Inspired Oxygen 100 % 50 % Lactic Acid Level 8.3 mmol/L (0.4-2.0) Hemoglobin 9.4 GM/DL (13.0-17.0) Hematocrit 28.9 % (39.0-51.0) Rapid Plasma Reagin NON-REACTIVE (NON-REACTVE) Hepatitis A IgM Antibody NEGATIVE (NEGATIVE) Hepatitis B Surface Antigen NEGATIVE (NEGATIVE) Hepatitis B Core IgM Antibody NEGATIVE (NEGATIVE) Hepatitis C Antibody REACTIVE (NEGATIVE) HIV (1&2) Antibody NEGATIVE (NEGATIVE) Test 03/17/17 20:30 03/18/17 04:48 03/18/17 05:30 03/18/17 06:00 White Blood Count 33.4 TH/MM3 (4.0-11.0) 30.0 TH/MM3 (4.0-11.0) Red Blood Count 2.75 MIL/MM3 (4.50-5.90) 2.68 MIL/MM3 (4.50-5.90) Hemoglobin 9.0 GM/DL (13.0-17.0) 8.9 GM/DL (13.0-17.0) Hematocrit 27.5 % (39.0-51.0) 26.5 % (39.0-51.0) Mean Corpuscular Volume 100.0 FL (80.0-100.0) 98.8 FL (80.0-100.0) Mean Corpuscular Hemoglobin 32.9 PG (27.0-34.0) 33.1 PG (27.0-34.0) Mean Corpuscular Hemoglobin Concent 32.9 % (32.0-36.0) 33.5 % (32.0-36.0) Red Cell Distribution Width 21.8 % (11.6-17.2) 21.6 % (11.6-17.2) Platelet Count 21 TH/MM3 (150-450) 22 TH/MM3 (150-450) Mean Platelet Volume 9.0 FL (7.0-11.0) 9.1 FL (7.0-11.0) Hematology Comments Blood Urea Nitrogen 64 MG/DL (7-18) 68 MG/DL (7-18) Creatinine 4.43 MG/DL (0.60-1.30) 4.64 MG/DL (0.60-1.30) Random Glucose 116 MG/DL (74-106) 200 MG/DL (74-106) Total Protein 5.9 GM/DL (6.4-8.2) 5.7 GM/DL (6.4-8.2) Albumin 2.8 GM/DL (3.4-5.0) 2.5 GM/DL (3.4-5.0) Calcium Level 6.7 MG/DL (8.5-10.1) 6.7 MG/DL (8.5-10.1) Alkaline Phosphatase 129 U/L (45-117) 136 U/L (45-117) Aspartate Amino Transf (AST/SGOT) 177 U/L (15-37) 189 U/L (15-37) Alanine Aminotransferase (ALT/SGPT) 38 U/L (12-78) 38 U/L (12-78) Total Bilirubin 12.0 MG/DL (0.2-1.0) 12.6 MG/DL (0.2-1.0) Sodium Level 130 MEQ/L (136-145) 129 MEQ/L (136-145) Potassium Level 3.6 MEQ/L (3.5-5.1) 3.9 MEQ/L (3.5-5.1) Chloride Level 94 MEQ/L (98-107) 93 MEQ/L (98-107) Carbon Dioxide Level 16.4 MEQ/L (21.0-32.0) 19.4 MEQ/L (21.0-32.0) Anion Gap 20 MEQ/L (5-15) 17 MEQ/L (5-15) Estimat Glomerular Filtration Rate 14 ML/MIN (>89) 13 ML/MIN (>89) Lactic Acid Level 10.2 mmol/L (0.4-2.0) Protein Corrected Calcium 7.3 MG/DL (8.5-10.1) 7.4 MG/DL (8.5-10.1) Blood Gas Puncture Site MIGUELITO Blood Gas Patient Temperature 98.6 Blood Gas HCO3 19 mmol/L (22-26) Blood Gas Base Excess -7.0 mmol/L (-2-2) Blood Gas Oxygen Saturation 94 % (90-100) Arterial Blood pH 7.28 (7.380-7.420) Arterial Blood Partial Pressure CO2 41 mmHg (38-42) Arterial Blood Partial Pressure O2 92 mmHg (61-120) Arterial Blood Oxygen Content 11.7 Vol % (12.0-20.0) Arterial Blood Carboxyhemoglobin 1.4 % (0-4) Arterial Blood Methemoglobin 1.0 % (0-2) Blood Gas Hemoglobin 8.8 G/DL (12.0-16.0) Oxygen Delivery Device VENTILATOR Blood Gas Ventilator Setting SEE COMMENT Blood Gas Inspired Oxygen 50 % CBC Comment AUTO DIFF Differential Total Cells Counted 100 Neutrophils % (Manual) 66 % (16-70) Band Neutrophils % 23 % (0-6) Lymphocytes % 2 % (9-44) Monocytes % 9 % (0-8) Neutrophils # (Manual) 26.7 TH/MM3 (1.8-7.7) Nucleated Red Blood Cells 1 /100 WBC (0-0) Differential Comment FINAL DIFF MANUAL Toxic Granulation 1+ (NORMAL) Toxic Vacuolation PRESENT (NONE SEEN) Dohle Bodies PRESENT (NONE SEEN) Platelet Estimate LOW (NORMAL) Platelet Morphology Comment NORMAL (NORMAL) Random Vancomycin Level 21.2 COMMENT Prothrombin Time 27.4 SEC (9.8-11.6) Prothromb Time International Ratio 2.4 RATIO Activated Partial Thromboplast Time 47.1 SEC (24.3-30.1) Fibrinogen 203 mg/dL (227-377) Test 03/19/17 06:25 White Blood Count 28.1 TH/MM3 (4.0-11.0) Red Blood Count 2.62 MIL/MM3 (4.50-5.90) Hemoglobin 8.7 GM/DL (13.0-17.0) Hematocrit 25.5 % (39.0-51.0) Mean Corpuscular Volume 97.2 FL (80.0-100.0) Mean Corpuscular Hemoglobin 33.3 PG (27.0-34.0) Mean Corpuscular Hemoglobin Concent 34.3 % (32.0-36.0) Red Cell Distribution Width 20.5 % (11.6-17.2) Platelet Count 14 TH/MM3 (150-450) Mean Platelet Volume 10.4 FL (7.0-11.0) CBC Comment AUTO DIFF Differential Total Cells Counted 100 Neutrophils % (Manual) 74 % (16-70) Band Neutrophils % 12 % (0-6) Lymphocytes % 4 % (9-44) Monocytes % 9 % (0-8) Neutrophils # (Manual) 24.4 TH/MM3 (1.8-7.7) Metamyelocytes 1 % (0-1) Differential Comment FINAL DIFF MANUAL Platelet Estimate RARE (NORMAL) Platelet Morphology Comment NORMAL (NORMAL) Prothrombin Time 27.5 SEC (9.8-11.6) Prothromb Time International Ratio 2.4 RATIO Blood Urea Nitrogen 87 MG/DL (7-18) Creatinine 5.32 MG/DL (0.60-1.30) Random Glucose 255 MG/DL (74-106) Total Protein 5.7 GM/DL (6.4-8.2) Calcium Level 6.2 MG/DL (8.5-10.1) Sodium Level 130 MEQ/L (136-145) Potassium Level 4.0 MEQ/L (3.5-5.1) Chloride Level 92 MEQ/L (98-107) Carbon Dioxide Level 22.3 MEQ/L (21.0-32.0) Anion Gap 16 MEQ/L (5-15) Estimat Glomerular Filtration Rate 11 ML/MIN (>89) Protein Corrected Calcium 6.8 MG/DL (8.5-10.1) Random Vancomycin Level 15.5 COMMENT (Melba Sanz) Result Diagram: 03/19/1762403/19/17624 Microbiology Microbiology Date/Time Source Procedure Growth Status 03/19/17 11:13 Blood Peripheral Aerobic Blood Culture Pending Received 03/19/17 11:13 Blood Peripheral Anaerobic Blood Culture Pending Received 03/19/17 06:25 Blood Peripheral Aerobic Blood Culture Pending Received 03/19/17 06:25 Blood Peripheral Anaerobic Blood Culture Pending Received 03/17/17 15:00 Blood Peripheral Aerobic Blood Culture - Final Staphylococcus Aureus Resulted 03/17/17 15:00 Blood Peripheral Anaerobic Blood Culture - Preliminary NO GROWTH IN 2 DAYS Resulted 03/17/17 15:00 Blood Peripheral Aerobic Blood Culture - Final Staphylococcus Aureus Resulted 03/17/17 15:00 Blood Peripheral Anaerobic Blood Culture - Preliminary NO GROWTH IN 2 DAYS Resulted 03/16/17 22:15 Blood Peripheral Aerobic Blood Culture - Final Staphylococcus Aureus Complete 03/16/17 22:15 Anaerobic Blood Culture - Final Staphylococcus Aureus Complete 03/16/17 22:00 Blood Peripheral Aerobic Blood Culture - Final Staphylococcus Aureus Complete 03/16/17 22:00 Anaerobic Blood Culture - Final Staphylococcus Aureus Complete 03/17/17 06:45 Sputum Endotracheal Gram Stain - Final Resulted 03/17/17 06:45 Sputum Culture - Preliminary S. Aureus Mrsa Resulted 03/16/17 22:15 Nasal Washing Influenza Types A,B Antigen (KIM) - Final NEGATIVE FOR FLU A AND B ANTIGEN.... Complete 03/17/17 05:12 Urine Catheterized Urine Urine Culture - Final NO GROWTH IN 48 HOURS. Complete Imaging Last Impressions Chest X-Ray 03/18/17 0600 Signed Impressions: Service Date/Time: February 05:34 - CONCLUSION: Bibasilar densities slightly worse in the left lower lobe. Possible kink in left jugular central line. Eran Agustin MD Ankle X-Ray 03/17/17 0000 Signed Impressions: Service Date/Time: Friday, March 17, 2017 16:58 - CONCLUSION: Lateral ankle soft tissue swelling. No acute findings in the osseous structures. Epifanio Bravo MD Head CT 03/16/17 0000 Signed Impressions: Service Date/Time: Thursday, March 16, 2017 22:50 - CONCLUSION: 1. Minimal contusion high right parietal convexity. 2. Minimal subarachnoid hemorrhage. Eran Agustin MD Chest CT 03/16/17 0000 Signed Impressions: Service Date/Time: Thursday, March 16, 2017 22:54 - CONCLUSION: 1. Minimal scarring in the lower lobes. 2. No consolidation or mass. Eran Agustin MD Abdomen/Pelvis CT 03/16/17 0000 Signed Impressions: Service Date/Time: Thursday, March 16, 2017 22:54 - CONCLUSION: 1. Cholelithiasis. 2. Liver is slightly nodular but could be early morphologic changes of cirrhosis. Minimal ascites. 3. Small fat-containing right inguinal hernia. 4. Splenomegaly. Eran Agustin MD . Procedures 03/16/17 - central line insertion. 10/25/17 - endotracheal intubation. (Melba Sanz) Assessment and Plan Disease Oriented Problem List: (1) Coagulopathy (2) Hyperammonemia (3) GI bleed (4) Transaminitis (5) Pancytopenia, acquired (6) Portal hypertension (7) Cirrhosis (8) Acute cholecystitis (9) DIC (disseminated intravascular coagulation) (10) Severe sepsis (11) Intracranial bleed Symptom Scale: (1) Dyspnea and respiratory abnormalities 0-10 Scale: Unable to quantify Comment: Mechanically ventilated with some spontaneous respirations, sedated. (2) Pain, generalized 0-10 Scale: Unable to quantify Comment: Sedated, withdraws to noxious stimuli 4 extremities. Receiving no analgesic medications at this time. Pertinent Non-Medical Issues Psychosocial:He was born in [place] and moved to [place] around 20 years ago. 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 He was an [employer] serving mostly in [place]. He was dishonorably discharged for DUI after approximately 18 months. He has a significant alcohol history and is usually homeless. In spite of multiple attempts by his mother to get him rehabilitation he has continually relapsed. He was once but is now . There was one child from that union, Carlos Rose was the last known telephone number, provided to me by the patient's mother, Madhuri Whalen, who is currently making decisions until attempts to locate his daughter can be completed. Spiritual: Raised Jehovah'S Witness. Mother states that he had some interactions with local pastors and would likely except javascript front end developer visits. Legal: His mother states that he does have a daughter, Carlos, from home he has been estranged most of her life. She has made intermittent contact with the patient's mother and we are attempting to contact her via the last known telephone number. In the interim, his mother would be the next decision-maker in the hierarchy per [place] statutes until the daughter can be located to determine her willingness to participate. Ethical issues impacting care: None noted. . Important Contacts Mother- Madhuri Whalen - Daughter - Carlos Rose - last known number . Last known address in [place]. . Prognosis His prognosis is poor. He presented with a significant bleed, coagulopathy and sepsis. It is thought that the sepsis may have been developing for several days prior to his presentation for this admission. There is concern for endocarditis in addition to the other sequelae of sepsis. He is currently on 3 vasopressors, epinephrine, norepinephrine and vasopressin at maximum doses to maintain hemodynamic stability. Critical care and infectious disease have reviewed this case with me and both have the opinion that his prognosis is very poor and quite possibly may not survive this hospitalization. . Code Status: Full Code Plan PLAN: Legal decision maker: By [place] statutes his daughter, Carlos Rose, would be the legal decision-maker, and has agreed to serve in that capacity. In the interim his mother, who would be next in the hierarchy per [place] statutes , had been serving as the decision-maker pending contact of the daughter. Goals: Aggressive at this time. CODE STATUS: Full code. SYMPTOMS: * Dyspnea- patient has respiratory failure, ventilatory dependent. He is continuing to have respiratory decline. Plan to transition to comfort measures with compassionate withdrawal of ventilator support today. * Pain- multifactorial from sepsis, mechanical ventilation, invasive lines, bedbound status. He is on fentanyl for sedation and pain management. Will transition to consent ventilator withdrawal protocol orders to manage pain and dyspnea. Palliative care will continue to follow the patient during hospital course as condition evolves, to assist patient/decision-maker with understanding of their medical conditions, weighing benefits/burdens of treatment options, for clarification of goals of treatment. Additionally will assist with any symptoms of palliative concern. . (Melba Sanz) Attestation To help prompt me to consider important information that might be impacting today's encounter and assessment, information from prior notes written by myself or my colleagues may have been "brought forward" into today's note. My signature on this note, however, is an attestation that I personally performed the exam, history, and/or decision-making noted today, and, unless otherwise indicated, the interactions with patient, family, and staff as well as the review of records all occurred today. I also attest that the listed assessment and stated plan reflect my best clinical judgment today based on the combination of historical information, prior notes, and today's exam/ interactions. When time spent is documented, it refers only to time spent today by the signer, or if indicated, combined time spent today by collaborating physician/nurse practitioner. . (Melba Sanz) Collaborating MD Comments Chart reviewed , patient examined personally by me. Case discussed with palliative care ACCORDION REPAIRER. Above ACCORDION REPAIRER note reviewed and i concur. Patient unresponsive, mechanically ventilated, sedated in SICU bed. Afebrile. VSS. Lungs clear. RRR without murmur. Pitting edema on all extremities. Old blood in mouth and down chin. Conjunctivae bloody. WBC 281. Hg 8.7 Plt 14 Creat 5.32. GFR 11. INR 2.4 Blood cx -- Staph aureus CXR --> worsening bibasilar densities. Patient continues to decline in spite of maximal medical therapy. Coagulopathy , sepsis persists. In my clinical opinion, patient is incapacitated with no reasonable probability of recovering capacity. In my clinical opinion he has an end stage condition. Palliative care will support legal decision maker's plan to transition to comfort measures only and to go forward with compassionate withdrawal of life support. I have reviewed with MICHELLE Ferrell, who should serve as appropriate proxy in this situation. Agree with the summary in Ms. Sanz's note. Operating under the proxy hierarchy in the [place] statutes and given that the mother has said her good-byes and is no longer capacitated, and given daughter desires withdrawal of life support but has no way of signing documents and is OK with relinquishing authority to patients sisters , and given that sisters are available and agree , we will use them as the signatories on the Exhibit. TIME: Over 60 minutes combined MD / ACCORDION REPAIRER time of floor with chart review, patient exams, above referenced conversation with family members, discussion with color mixer, and writing withdrawal orders and post-withdrawal comfort orders. Over 50% of time spent on counseling/coordination of care. . . (Angelito Mendoza MD) Melba Sanz Mar 19, 2017 16:12 Angelito Mendoza MD Mar 19, 2017 16:38
--- NOTE | 2017-03-19 16:19 | HHI.HCPN ---
Per Dr. Sanchez's conversation with the patient's daughter, Carlos, DO NOT RESUSCITATE orders were entered and preparations were made for transition to comfort measures. Arrangements were made for his mother, who was hospitalized chest pain, to visit the patient prior to initiating comfort measures for her to be allowed time to say her goodbyes. She was also attended by her and 2 daughters. She was extremely distraught, requiring administration of an anxiolytic, Xanax, prior to her visit. During Dr. Sanchez's conversation with Carlos, she requested withdrawal of the vent tube, however she did not have available to her a fax machine or printer with a scanner option. She did ask if the available family members here, particularly her aunts, were able to sign with her verbal permission, as witnessed by myself and the patient's nurse, oJya Dodge? This was discussed with the biomedical equipment technician, Dr. Mendoza, who felt that as the patient's mother , who would be the next decision-maker in the hierarchy per [place] statutes, was unable to sign due to medical illness and emotional distress requiring the administration of anxiolytic, and the patient's sisters, who would be the next level of the hierarchy per [place] statutes, were available and agreed with the decision, could sign the exhibits to withdrawal. Melba Sanz Mar 19, 2017 16:19
--- NOTE | 2017-03-19 16:52 | HHI.PR ---
Addendum to Inpatient Note Addendum Reason: Additional Documentation Additional Information Informed by RN and Palliative care team of plans to withdraw in next hour or so. Continue current IV antibiotics. Will sign off please call if any change in plans. Brittney Waters MD Mar 19, 2017 16:52
[2017-03-19] MEDS ORDERED: MORPHINE SULFATE 8 MG/ML INJ IV PUSH ONE (17:15)
[2017-03-19] MEDS ORDERED: LORazepam 2 MG/ML VIAL IV PUSH ONE ×2 (17:15→17:45)
[2017-03-19] MEDS ORDERED: HYOSCYAMINE 0.5 MG/ML AMP IV PUSH ONE (17:15)
[2017-03-19] MEDS ORDERED: MORPHINE SULFATE 4 MG/ML INJ IV PUSH ONE (17:45)
[2017-03-19] MEDS ORDERED: FUROSEMIDE 20 MG/2 ML VIAL IV PUSH PRN (17:45)
[2017-03-19] MEDS ORDERED: LORazepam 2 MG/ML VIAL IV PUSH PRN ×3 (17:45)
[2017-03-19] MEDS ORDERED: MORPHINE SULFATE 8 MG/ML INJ IV PUSH PRN (17:45)
[2017-03-19] MEDS ORDERED: MORPHINE SULFATE 4 MG/ML INJ IV PUSH PRN (17:45)
[2017-03-19] MEDS ORDERED: BISACODYL 10 MG SUPP RECTAL PRN (17:45)
[2017-03-19] MEDS ORDERED: HYOSCYAMINE 0.5 MG/ML AMP IV PUSH PRN (17:45)
[2017-03-19] MEDS ORDERED: ACETAMINOPHEN 650 MG SUPP RECTAL PRN (17:45)
[2017-03-19] MEDS ORDERED: MORPHINE SULFATE 4 MG/ML INJ IV PUSH SCH (20:00)
[2017-03-19] MEDS ORDERED: LORazepam 2 MG/ML VIAL IV PUSH SCH (20:00)
--- NOTE | 2017-03-20 07:58 | DEATH SUM ---
Summary Demographics Date Pronounced : Mar 19, 2017 Time Of : 1739 Pronounced By: Dr. Corrales Preliminary Cause of : Multi Organ Failure Camilo Corrales MD Mar 20, 2017 07:58
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
== END 2017-03-19 17:39 | disposition expired | DRG 871 ==
LOC: NEPE 20:49 → NEDA 23:43 → N03A 03-17 00:37
PROVIDERS: ADMIT Internal Medicine Critical Care Medicine; ATTEND Internal Medicine Critical Care Medicine
PROC: 05HN33Z Insertion of Infusion Device into Left Internal Jugular Vein, Percutaneous Approach (ICD-10-PCS; principal; 2017-03-16)
PROC: 5A1945Z Respiratory Ventilation, 24-96 Consecutive Hours (ICD-10-PCS; 2017-03-17)
PROC: 30233K1 Transfusion of Nonautologous Frozen Plasma into Peripheral Vein, Percutaneous Approach (ICD-10-PCS; 2017-03-17)
PROC: 30233R1 Transfusion of Nonautologous Platelets into Peripheral Vein, Percutaneous Approach (ICD-10-PCS; 2017-03-17)
PROC: 30233M1 Transfusion of Nonautologous Plasma Cryoprecipitate into Peripheral Vein, Percutaneous Approach (ICD-10-PCS; 2017-03-17)
PROC: 30233P1 Transfusion of Nonautologous Frozen Red Cells into Peripheral Vein, Percutaneous Approach (ICD-10-PCS; 2017-03-17)
PROC: 0BH18EZ Insertion of Endotracheal Airway into Trachea, Via Natural or Artificial Opening Endoscopic (ICD-10-PCS; 2017-03-17)
PROC: 0DJ08ZZ Inspection of Upper Intestinal Tract, Via Natural or Artificial Opening Endoscopic (ICD-10-PCS; 2017-03-17)
DX: A41.01 Sepsis due to Methicillin susceptible Staphylococcus aureus (principal); S06.6X9A Traumatic subarachnoid hemorrhage with loss of consciousness of unspecified duration, initial encounter; D65 Disseminated intravascular coagulation [defibrination syndrome]; I21.4 Non-ST elevation (NSTEMI) myocardial infarction; J96.01 Acute respiratory failure with hypoxia; R57.1 Hypovolemic shock; G93.41 Metabolic encephalopathy; J90 Pleural effusion, not elsewhere classified; R65.21 Severe sepsis with septic shock; K25.4 Chronic or unspecified gastric ulcer with hemorrhage; N17.9 Acute kidney failure, unspecified; D61.818 Other pancytopenia; E22.2 Syndrome of inappropriate secretion of antidiuretic hormone; E87.2 Acidosis; D68.4 Acquired coagulation factor deficiency; D62 Acute posthemorrhagic anemia; I38 Endocarditis, valve unspecified; K76.6 Portal hypertension; K80.00 Calculus of gallbladder with acute cholecystitis without obstruction; I76 Septic arterial embolism; K70.31 Alcoholic cirrhosis of liver with ascites; F10.20 Alcohol dependence, uncomplicated; R40.2412 Glasgow coma scale score 13-15, at arrival to emergency department; W19.XXXA Unspecified fall, initial encounter; I10 Essential (primary) hypertension; I35.0 Nonrheumatic aortic (valve) stenosis; K70.11 Alcoholic hepatitis with ascites; K70.40 Alcoholic hepatic failure without coma; N49.2 Inflammatory disorders of scrotum; R31.0 Gross hematuria; Z51.5 Encounter for palliative care; Z66 Do not resuscitate; K21.9 Gastro-esophageal reflux disease without esophagitis; K44.9 Diaphragmatic hernia without obstruction or gangrene; K31.89 Other diseases of stomach and duodenum; R60.1 Generalized edema; Z59.0 Homelessness
CPT/HCPCS: 31500; 36430; 36600; 36620; 70450; 71010; 71250; 73600; 74176; 80048; 80053; 80074; 80202; 80307; 81001; 82140; 82550; 82552; 82805; 83605; 83690; 83735; 84155; 84484; 85007; 85014; 85018; 85027; 85379; 85384; 85610; 85730; 86140; 86403; 86592; 86703; 86850; 86900; 86901; 86920; 86927; 86965; 87040; 87070; 87086; 87147; 87186; 87205; 87491; 87591; 87641; 87804; 93005; 93306; 94002; 94003; 94640; 94664; 96365; 96368; 96375; 99292; C9113; J0171; J0330; J0690; J1720; J1953; J2250; J2270; J2354; J2405; J2543; J3010; J3370; J7030; J7040; J7050; J7060; J7070; P9016; P9017; P9035; P9047